=== PATIENT | male | born 1950 | race Caucasian/White ===

== ENCOUNTER 2016-12-06 22:25 | Inpatient (IN) ==
[2016-12-06] MEDS ORDERED: *HR* Labetalol 20 MG/4 ML SYRINGE IVP ONE (22:40)
--- NOTE | 2016-12-06 22:42 | Emergency Department Note ---
START Narrative - START START: I examined this patient and my medical decision-making was reviewed with the Resident Physician. I agree with the documented findings, disposition and treatment plan as described except to the extent set forth below. Patient to ED complaining of chest pain. Onset 1 day ago. He was transferred from the inpatient long-term care unit at the [facility]. History of an MT several months ago. The patient states his pain went away after nitroglycerin. Exam shows him laying in bed in no acute distress. Pain nonreproducible. Lungs clear. Plan. Cardiac workup and likely admission. Troponin negative. The patient is hypertensive which is likely continuing to his chest pain. He is chest pain-free at this time. We had her etiology review his EKG which appeared to be a left bundle branch block. They want him started on heparin and they will see him in consultation tomorrow. 40 minutes of critical care exclusive of separately billable procedures.
[2016-12-06 22:53] LABS: Basophils % 0.1 %; Hematocrit 41.3 % (37.5-50.1); Hemoglobin 14.6 g/dL (12.9-16.9); Immature Granulocytes % 0.4 % (0-4); Lymphocytes # 1.8 K/mcL (0.6-4.6); Mean Corpuscular HGB Conc 35.4 g/dL (31.6-35.5); Mean Corpuscular Hemoglobin 31.1 pg (28.0-33.3); Mean Corpuscular Volume 88.1 fL (83.0-100.0); Mean Platelet Volume 11.9 fL (9.4-12.4); Monocytes # 1.6 K/mcL (0.0-1.3); Monocytes % 10.6 %; Neutrophils # 11.8 K/mcL (1.6-8.9); Platelet Count 142 K/mcL (140-400); Red Blood Count 4.69 M/mcL (4.19-5.50); Red Cell Distribution Width 13.2 % (11.5-14.5); Segmented Neutrophils % 76.9 %
[2016-12-06] MEDS ORDERED: Ondansetron 4 MG/2 ML VIAL IVP ONE (22:53)
[2016-12-06 22:59] LABS: INR 1.2; Prothrombin Time 13.5 Seconds (9.4-12.1)
[2016-12-06 23:02] LABS: Activated Partial Thrombo Time 29.7 Seconds (26.0-36.0)
[2016-12-06 23:09] LABS: Alanine Aminotransferase 43 Units/L (0-55); Albumin/Globulin Ratio 1.1 (1.1-2.2); Alkaline Phosphatase 147 Units/L (38-126); Aspartate Amino Transferase 102 Units/L (5-34); BUN/Creatinine Ratio 17 (6-26); Bilirubin,Direct 0.9 mg/dL (0.0-0.5); Bilirubin,Indirect 1.3 mg/dL (0.0-1.2); Bilirubin,Total 2.2 mg/dL (0.2-1.2); Blood Urea Nitrogen 16 mg/dL (8-26); Calcium 9.5 mg/dL (8.6-10.8); Carbon Dioxide 23 mEq/L (19-29); Chloride 108 mEq/L (98-109); Globulin 3.8 g/dL (2.4-3.5); Glucose 166 mg/dL (70-99); Lipase 17 Units/L (8-78); Osmolality,Calculated 297 (280-300); Potassium 3.8 mEq/L (3.5-4.5); Sodium 141 mEq/L (136-145); Total Protein 7.8 g/dL (6.0-8.3); eGFR For African Americans > 60 (> 60); eGFR For Non-African Americans > 60 (> 60)
[2016-12-06] MEDS ORDERED: *HR* Heparin 5,000 UNIT/ML VIAL IVP PRN ×2 (23:27)
[2016-12-06] MEDS ORDERED: *HR* Heparin 5,000 UNIT/ML VIAL IVP ONE (23:27)
[2016-12-06] MEDS ORDERED: Heparin 25,000 UNIT/500 ML D5W 25,000 UNIT/500 ML MLS IVC SCH (23:30)
--- NOTE | 2016-12-06 23:33 | Emergency Department Note ---
Disposition Clinical Impression: Chest pain Qualifiers: Chest pain type: unspecified Qualified Code(s): R07.9 - Chest pain, unspecified Disposition: Admitted As Inpatient Condition: Fair [facility]errals: [facility] [Primary Care Provider[facility] - Forms: ED Satisfaction Letter Time of Disposition: 23:40 Chest Pain HPI - General Chief Complaint: ED Chest Pain Stated Complaint: chest pain Time Seen by Provider: 12/06/16 22:29 Source: patient Mode of arrival: EMS Limitations: no limitations Vital Signs Reviewed: Yes Nursing Notes Reviewed: Yes - History of Present Illness HPI Narrative: Patient is a 66-year-old male with a history of hypertension, cholesterol, diabetes, demand ischemia presents from the [facility] [place] with complaint of chest pain that has been going on since yesterday. He describes the chest pain is throbbing like in left-sided without radiation he does have some nausea and vomiting with it as well. Patient also has some diffuse abdominal pain at this time is going on for the past week. He also admits to some diarrhea. He has not seen any blood in the stool or his vomit. He states he does have a history of melena. The squad states they gave him 3 and 24 mg of aspirin and one dose of nitroglycerin. Patient states pain resolved after the nitroglycerin. Severity scale (1-10): 8 - Related Data Home Medications Medication Instructions Recorded Confirmed Aspirin 81 mg PO DAILY 01/06/16 01/06/16 Atorvastatin [Lipitor] 40 mg PO HS 01/06/16 01/06/16 Gabapentin [Neurontin] 600 mg PO TID 01/06/16 01/06/16 Insulin Glargine,Hum.rec.anlog 52 unit SQ 01/06/16 01/06/16 [Lantus Solostar] Lactulose 20 gm PO BID 01/06/16 01/06/16 Losartan [Cozaar] 50 mg PO DAILY 01/06/16 01/06/16 Metformin HCl [Glucophage] 1,000 mg PO BID 01/06/16 01/06/16 Morphine Sulfate 30 mg PO BID 01/06/16 01/06/16 Oxybutynin Chloride [Ditropan Xl] 5 mg PO DAILY 01/06/16 01/06/16 Pantoprazole Sodium [Protonix] 40 mg PO DAILY 01/06/16 01/06/16 Quetiapine Fumarate [Seroquel] 200 mg PO PRN PRN 01/06/16 01/06/16 Topiramate [Topamax] 100 mg PO DAILY 01/06/16 01/06/16 Venlafaxine HCl [Venlafaxine HCl 225 mg PO DAILY 01/06/16 01/06/16 ER] hydroCHLOROthiazide 12.5 mg PO DAILY 01/06/16 01/06/16 [Hydrochlorothiazide] Allergies Allergy/AdvReac Type Severity Reaction Status Date / Time sertraline [From Zoloft] Allergy Nausea Verified 01/06/16 17:11 All systems ED: reviewed and negative except as stated. Constitutional: Reports: chills. Denies: fever Cardiovascular: Reports: chest pain. Denies: palpitations, dyspnea on exertion Respiratory: Reports: dyspnea. Denies: cough, wheezes, hemoptysis Gastrointestinal: Reports: abdominal pain, nausea, vomiting, diarrhea. Denies: hematemesis, melena, hematochezia Genitourinary: Denies: dysuria Musculoskeletal: Denies: back pain, neck pain Integumentary: Denies: rash Chest Pain PMH - Past Medical History Medical history: Reports: arthritis, cancer, cirrhosis, COPD, diabetes, GERD, GI bleed, hepatitis, hyperlipidemia, hypertension, kidney stones, liver disease , osteoporosis, other Surgical history: Reports: other Psychiatric history: Reports: anxiety, bipolar, depression, PTSD, other - Social History Smoking Status: Heavy tobacco smoker Alcohol use: Reports: heavy Drug use: Reports: none Physical Exam Patient does not appear to be in acute distress. His blood pressures reading is 210/110. He is also tachycardic. - General Limitations: no limitations General appearance: alert, in no apparent distress - Head Head exam: atraumatic, normocephalic, normal inspection - Eye Eye exam: Present: normal appearance, PERRL, EOMI - ENT ENT exam: normal exam, normal oropharynx, mucous membranes dry - Neck Neck exam: Present: normal inspection, full ROM, trachea midline - Chest Chest inspection: Present: normal inspection, symmetric chest wall rise. Absent : tenderness - Respiratory Respiratory exam: Present: normal lung sounds bilaterally. Absent: respiratory distress, wheezes - Cardiovascular Cardiovascular exam: Present: regular rate, normal rhythm, normal heart sounds - Abdominal Exam Abdominal exam: Present: soft, Non-Tender, normal bowel sounds - Extremities Exam Extremities exam: Present: normal inspection, full ROM, normal capillary refill. Absent: tenderness, pedal edema, calf tenderness - Expanded Lower Extremity Exam Foot/toe exam: Present: normal inspection, full ROM. Absent: tenderness, swelling Neurovascular/Tendon exam: Present: normal capillary refill. Absent: pulse deficit - Back Exam Back exam: Present: normal inspection, full ROM. Absent: tenderness - Neurological Exam Neurological exam: Present: alert, oriented X3 - Psychiatric Psychiatric exam: Present: normal affect, normal mood - Skin Skin exam: Present: warm, dry, intact, normal color Course Course Narrative: Patient arrived to the ED with a chief complaint of chest pain that started yesterday. Chest pain relieved with 1 nitroglycerin by squad. The patient was also noted to have an elevated troponin of 0.14 and a CK of 4584 at the [facility]. Patient patient's EKG showed a left bundle branch block. I discussed this EKG with Dr. Rosales (cardiology) he also saw the EKG. He states start the patient on heparin and admitted to the hospital and he will see him for further evaluation. - Reevaluation(s) Reevaluation #1: Patient's blood pressure was elevated 210/110. We gave him a dose of labetalol here in the ER. His repeat pressure was 160/90. Respiratory repeat EKG patient stated he was having some 3 out of 10 chest pain. Time: 23:43 Reevaluation #2: I spoke with Dr. Rosales on this patient's case he reviewed the patient's EKG. He agrees his LBBB. Recommend starting the patient on heparin in the ED and admitting to the hospital for further evaluation by cardiology. Time: 23:44 Reevaluation #3: I spoke with Dr. Ordonez and he agrees to admit the patient. Time: 00:12 Vital Signs Temperature 97.9 F 12/06/16 22:31 Pulse Rate 101 12/06/16 22:31 Respiratory Rate 20 12/06/16 22:31 Blood Pressure 149/103 12/06/16 22:31 O2 Sat by Pulse Oximetry 98 12/06/16 22:31 Temperature 97.9 F 12/06/16 22:31 Pulse Rate 92 12/06/16 23:04 Respiratory Rate 20 12/06/16 23:04 Blood Pressure 146/93 12/06/16 23:21 O2 Sat by Pulse Oximetry 99 12/06/16 23:04 Oxygen Delivery Oxygen Delivery Nasal Cannula Chest Pain - Medical Records Medical records reviewed: Yes I reviewed the patient's medical records. - Lab Data Lab results reviewed: Yes I reviewed the patient's lab results. Result diagrams: 12/06/16 23:49 12/06/16 22:43 Lab Results 12/06/16 12/06/16 12/06/16 Range/Units 22:43 22:43 22:43 WBC 15.4 H (4.3-11.1) K/mcL RBC 4.69 (4.19-5.50) M/mcL Hgb 14.6 (12.9-16.9) g/dL Hct 41.3 (37.5-50.1) % MCV 88.1 (83.0-100.0) fL MCH 31.1 (28.0-33.3) pg MCHC 35.4 (31.6-35.5) g/dL RDW 13.2 (11.5-14.5) % Plt Count 142 (140-400) K/mcL MPV 11.9 (9.4-12.4) fL Immature Gran % 0.4 (0-4) % Seg Neutrophils % 76.9 % Lymphocytes % 12.0 % Monocytes % 10.6 % Eosinophils % 0.0 % Basophils % 0.1 % Neutrophils # 11.8 H (1.6-8.9) K/mcL Lymphocytes # 1.8 (0.6-4.6) K/mcL Monocytes # 1.6 H (0.0-1.3) K/mcL Eosinophils # 0.0 (0.0-0.6) K/mcL Basophils # 0.0 (0.0-0.2) K/mcL PT 13.5 H (9.4-12.1) Seconds INR 1.2 APTT 29.7 (26.0-36.0) Seconds Sodium (136-145) mEq/L Potassium (3.5-4.5) mEq/L Chloride (98-109) mEq/L Carbon Dioxide (19-29) mEq/L BUN (8-26) mg/dL Creatinine (0.72-1.25) mg/dL Est GFR ( Amer) (> 60) Est GFR (Non-Af Amer) (> 60) BUN/Creatinine Ratio (6-26) Glucose (70-99) mg/dL Calculated Osmolality (280-300) Calcium (8.6-10.8) mg/dL Total Bilirubin (0.2-1.2) mg/dL Direct Bilirubin (0.0-0.5) mg/dL Indirect Bilirubin (0.0-1.2) mg/dL AST (5-34) Units/L ALT (0-55) Units/L Alkaline Phosphatase (38-126) Units/L Troponin I 0.02 (0-0.03) ng/mL Serum Total Protein (6.0-8.3) g/dL Albumin (3.5-5.0) g/dL Globulin (2.4-3.5) g/dL Albumin/Globulin Ratio (1.1-2.2) Lipase (8-78) Units/L 12/06/16 12/06/16 12/06/16 Range/Units 22:43 23:49 23:49 WBC 14.4 H (4.3-11.1) K/mcL RBC 4.55 (4.19-5.50) M/mcL Hgb 14.1 (12.9-16.9) g/dL Hct 40.4 (37.5-50.1) % MCV 88.8 (83.0-100.0) fL MCH 31.0 (28.0-33.3) pg MCHC 34.9 (31.6-35.5) g/dL RDW 13.0 (11.5-14.5) % Plt Count 136 L (140-400) K/mcL MPV 11.6 (9.4-12.4) fL Immature Gran % (0-4) % Seg Neutrophils % % Lymphocytes % % Monocytes % % Eosinophils % % Basophils % % Neutrophils # (1.6-8.9) K/mcL Lymphocytes # (0.6-4.6) K/mcL Monocytes # (0.0-1.3) K/mcL Eosinophils # (0.0-0.6) K/mcL Basophils # (0.0-0.2) K/mcL PT 13.4 H (9.4-12.1) Seconds INR 1.2 APTT (26.0-36.0) Seconds Sodium 141 (136-145) mEq/L Potassium 3.8 (3.5-4.5) mEq/L Chloride 108 (98-109) mEq/L Carbon Dioxide 23 (19-29) mEq/L BUN 16 (8-26) mg/dL Creatinine 0.93 (0.72-1.25) mg/dL Est GFR ( Amer) > 60 (> 60) Est GFR (Non-Af Amer) > 60 (> 60) BUN/Creatinine Ratio 17 (6-26) Glucose 166 H (70-99) mg/dL Calculated Osmolality 297 (280-300) Calcium 9.5 (8.6-10.8) mg/dL Total Bilirubin 2.2 H (0.2-1.2) mg/dL Direct Bilirubin 0.9 H (0.0-0.5) mg/dL Indirect Bilirubin 1.3 H (0.0-1.2) mg/dL AST 102 H (5-34) Units/L ALT 43 (0-55) Units/L Alkaline Phosphatase 147 H (38-126) Units/L Troponin I (0-0.03) ng/mL Serum Total Protein 7.8 (6.0-8.3) g/dL Albumin 4.0 (3.5-5.0) g/dL Globulin 3.8 H (2.4-3.5) g/dL Albumin/Globulin Ratio 1.1 (1.1-2.2) Lipase 17 (8-78) Units/L - Radiology Data Radiology results reviewed: Yes I reviewed the patient's radiology results. Chest X-Ray 12/06/16 22:29 IMPRESSION: No significant change compared to prior radiograph. No acute cardiopulmonary findings. D/ / Doe Walker MD / Doe Walker MD Interpreting Provider: Doe Walker MD - EKG Data EKG attestation: Yes I reviewed and interpreted this EKG. EKG results narrative: His EKG was interpreted by me. Time 22:33. EKG is sinus tachycardia rate of 105 bpm with left bundle branch block. Left [place] Deviation. NE 201, QRS 130, QT /QTc 372/433. widened QRS is consistent with LBBB. This EKG was reviewed with DR. Rosales and he states it appears to be LBBB. Interpretation: other (Patient repeat EKG performed at 23:36. As a sinus rhythm at 81 bpm. Still showing left axis deviation. His left bundle branch block has improved. Otherwise unchanged from his prior EKG.)
[2016-12-06 23:54] LABS: Hematocrit 40.4 % (37.5-50.1); Hemoglobin 14.1 g/dL (12.9-16.9); Mean Corpuscular HGB Conc 34.9 g/dL (31.6-35.5); Mean Corpuscular Volume 88.8 fL (83.0-100.0); Mean Platelet Volume 11.6 fL (9.4-12.4); Platelet Count 136 K/mcL (140-400); Red Blood Count 4.55 M/mcL (4.19-5.50)
[2016-12-07 00:01] LABS: INR 1.2; Prothrombin Time 13.4 Seconds (9.4-12.1)
[2016-12-07] MEDS ORDERED: *HR* Promethazine 25 MG/ML VIAL IVP ONE (00:02)
[2016-12-07 00:03] LABS: Activated Partial Thrombo Time 29.6 Seconds (26.0-36.0)
--- NOTE | 2016-12-07 01:18 | Internal Med History&Physical ---
Date of Encounter: 12/07/16 Time of Encounter: 01:16 Assessment and Plan (1) Acute bronchitis Current visit: Yes Status: Acute Patient to the COPD or notices increased amount of greenish sputum. I will keep patient on azithromycin for acute bronchitis. Check sputum culture. for acute bronchitis. check sputum culture Qualifiers: Qualified Code(s): J20.9 - Acute bronchitis, unspecified (2) Diarrhea Current visit: Yes Status: Acute Has not noticed blood. Check stool for occult blood. CT abdomen shows some stranding along mesenteric vessels. Does not appear to have severe abdominal pain. Abdomen benign on exam. Check stool studies. 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 Trend troponin. Has not had cardiac evaluation before. 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 Oro is a 66 year old male with multiple medical problems including alcoholic induced liver cirrhosis, COPD not on home oxygen, diabetes mellitus presents to the emergency room today with the main complain of chest pain. Over the past 2 days patient has been having intermittent left pectoral chest pain not related to exertion. Pain would last for approximately 30 minutes. No associated symptoms. Patient also mentioned over the past 2 days he has been feeling sick. He describes that this feeling weak, easy fatigue ability, subjective fevers and chills. He has been having lower abdominal discomfort and intermittent loose stools. He has also been having a productive cough of greenish sputum with more sputum production than usual. He denies any blood in the diarrhea. Patient has not had a coronary angiogram before Past Med Surg Social Fam HX - Past Medical History Medical history: arthritis, cancer, cirrhosis, COPD, diabetes, GERD, GI bleed, hepatitis, hyperlipidemia, hypertension, kidney stones, liver disease, osteoporosis, other Psychiatric history: anxiety, bipolar, depression, PTSD, other - Past Surgical History Surgical History: other - Social History Smoking Status: Heavy tobacco smoker Smokeless Tobacco Status: No Alcohol use: heavy Drug use: none - Family History Mother Living Status: Internal Medicine - H&P: Meds Aspirin 81 mg PO DAILY 01/06/16 [History] Atorvastatin [Lipitor] 40 mg PO HS 01/06/16 [History] Gabapentin [Neurontin] 600 mg PO TID 01/06/16 [History] Insulin Glargine,Hum.rec.anlog [Lantus Solostar] 52 unit SQ HS 01/06/16 [History ] Lactulose 20 gm PO BID 01/06/16 [History] Losartan [Cozaar] 50 mg PO DAILY 01/06/16 [History] Metformin HCl [Glucophage] 1,000 mg PO BID 01/06/16 [History] Morphine Sulfate 30 mg PO BID 01/06/16 [History] Oxybutynin Chloride [Ditropan Xl] 5 mg PO DAILY 01/06/16 [History] Pantoprazole Sodium [Protonix] 40 mg PO DAILY 01/06/16 [History] Quetiapine Fumarate [Seroquel] 200 mg PO PRN PRN 01/06/16 [History] Topiramate [Topamax] 100 mg PO DAILY 01/06/16 [History] Venlafaxine HCl [Venlafaxine HCl ER] 225 mg PO DAILY 01/06/16 [History] hydroCHLOROthiazide [Hydrochlorothiazide] 12.5 mg PO DAILY 01/06/16 [History] Allergies sertraline [From Zoloft] Allergy (Verified 01/06/16 17:11) Nausea All Systems PM: A 10-system review of systems was performed and is negative for pertinent findings except as documented above in the HPI. Review of systems: 10 point review of systems is negative except for HPI - Constitutional Vitals: Temp Pulse Resp BP Pulse Ox 97.9 F 81 16 156/87 96 12/06/16 22:31 12/07/16 00:34 12/07/16 00:34 12/07/16 00:34 12/07/16 00:34 Exam: Gen.: patient is alert oriented times 3 not in distress. Cardiac: normal S1 S2 no additional sounds or murmurs chest: fair air entry. no active wheezing. No crackles or bronchial breathing. abdomen: soft nontender nondistended normal bowel sounds neuro: no focal deficit Internal Med - H&P Results - Labs CBC & Chem 7: 12/06/16 23:49 12/06/16 22:43
[2016-12-07 02:12] LABS: BUN/Creatinine Ratio 19 (6-26); Blood Urea Nitrogen 18 mg/dL (8-26); Calcium 9.1 mg/dL (8.6-10.8); Carbon Dioxide 23 mEq/L (19-29); Chloride 108 mEq/L (98-109); Creatine Kinase 3695 Units/L (30-200); Glucose 162 mg/dL (70-99); Osmolality,Calculated 297 (280-300); Potassium 3.3 mEq/L (3.5-4.5); Sodium 141 mEq/L (136-145); eGFR For African Americans > 60 (> 60); eGFR For Non-African Americans > 60 (> 60)
[2016-12-07 02:18] LABS: Basophils % 0.1 %; Hematocrit 39.2 % (37.5-50.1); Hemoglobin 13.9 g/dL (12.9-16.9); Immature Granulocytes % 0.3 % (0-4); Lymphocytes # 2.2 K/mcL (0.6-4.6); Mean Corpuscular HGB Conc 35.5 g/dL (31.6-35.5); Mean Corpuscular Hemoglobin 31.2 pg (28.0-33.3); Mean Corpuscular Volume 88.1 fL (83.0-100.0); Mean Platelet Volume 12.4 fL (9.4-12.4); Monocytes # 1.5 K/mcL (0.0-1.3); Monocytes % 10.7 %; Neutrophils # 10.1 K/mcL (1.6-8.9); Platelet Count 130 K/mcL (140-400); Red Blood Count 4.45 M/mcL (4.19-5.50); Red Cell Distribution Width 13.2 % (11.5-14.5); Segmented Neutrophils % 72.9 %
[2016-12-07] MEDS: Azithromycin 250 MG TABLET PO SCH (03:31)
[2016-12-07] MEDS ORDERED: *HR* OxyCODONE Immed Rel 5 MG TABLET PO STA (04:21)
[2016-12-07 04:46] LABS: Hemoglobin A1C 6.3 %
[2016-12-07] MEDS: 0.9 % Sodium Chloride 1,000 ML IVC SCH ×2 (04:59→17:22)
[2016-12-07 07:09] LABS: Activated Partial Thrombo Time 131.9 Seconds (26.0-36.0)
[2016-12-07 07:22] LABS: Heparin anti-factor XA UFH 0.59 IU/mL (0.30-0.70)
[2016-12-07] MEDS ORDERED: Regadenoson 0.4 MG/5 ML SYRINGE IVP ONE (09:10)
[2016-12-07] MEDS: Insulin LISPRO 300 UNITS/3 ML VIAL SQ SCH ×4 (09:15→20:50)
--- NOTE | 2016-12-07 09:33 | Cardiology Consult Note ---
Date of Encounter: 12/07/16 Time of Encounter: 09:30 Assessment and Plan (1) Chest pain Current Visit: Yes Status: Acute Pt reports onset of chest pain at rest yesterday, left sided associated with dyspnea, diaphoresis, nausea and vomiting. Reports it was worse with exertion, improved with nitro, lasted hours and has now resolved without recurrence. Initial troponin at [facility] 0.14, negative x 2 here. Question accuracy of initial troponin. Currently chest pain free. BP also as high as 211/126 after presentation. No EKG changes. Discussed with Dr. Hayder Rosales. Given pt's multiple cormorbidities, hx of noncompliance and 2 recent negative troponins, recommend stress test to further evaluate. Stop heparin gtt. Check echo as well. Echo 01/2016 EF preserved. Further recommendations pending stress and echo results. Pt has no prior diagnosis of CAD. Denies stress or LHC in the past. Risk factors include DM, HTN , HLD, tobacco abuse. Qualifiers: Chest pain type: unspecified Qualified Code(s): R07.9 - Chest pain, unspecified (2) Elevated troponin Current Visit: Yes Status: Acute Documented per [facility] as initial troponin 0.14. Troponin negative x 2 here, so question accuracy of initial troponin. Currently chest pain free. Echo and stress test as above. Discussion w patient/family: The assessment and plan as outlined above was discussed with the patient and/or family members who expressed understanding and agreement. All questions were answered. Thank you for involving us in the care of your patient. Please call with any questions. I will discuss all the above with Dr. Hayder Rosales and make changes as necessary. History of Present Illness Consult date: 12/07/16 Requesting physician: Magdi Pete Consult reason: Chest pain, elevated troponin Chief complaint: chest pain History of present illness: Mr. Oro is a 66 year old male with PMH of Type 2 DM, HTN, HLD, OA, PTSD, depression-anxiety disorder, alcohol dependency-abuse (episodic), hepatitis C, anemia of chronic disease, GI bleed, liver disease, esophageal-gastric varices, history of hepatic encephalopathy, obesity, nicotine dependency. The patient was a transfer from [facility]. He resides there, was laying in bed yesterday and developed left sided chest pain without radiation. It was associated with nausea , vomiting, diaphoresis, dyspnea. Pt reports the pain worsened with exertion, improved with nitro, lasted hours before subsiding. Currently chest pain free. Troponin at [facility] was 0.14 and he was transferred to [facility]. Troponin here has been negative x 2. Pt chest pain free. BP was as high as 211/126 after presentation. Prior CV testing: Echo 01/06/16: EF 55-60%, normal diastolic function, mildly dilated left atrium, no significant valvular dysfunction. Past Med Surg Social Fam HX - Past Medical History Medical history: arthritis, cancer, cirrhosis, COPD, diabetes, GERD, GI bleed, hepatitis, hyperlipidemia, hypertension, kidney stones, liver disease, osteoporosis, other Psychiatric history: anxiety, bipolar, depression, PTSD, other - Past Surgical History Surgical History: other - Social History Smoking Status: Heavy tobacco smoker Packs per day: 1 Smokeless Tobacco Status: No Alcohol use: none Drug use: none - Family History Mother Living Status: Cause of : Brain aneurysm Medications and Allergies Aspirin 81 mg PO DAILY 01/06/16 [History] Atorvastatin [Lipitor] 40 mg PO HS 01/06/16 [History] Gabapentin [Neurontin] 600 mg PO TID 01/06/16 [History] Lactulose 20 gm PO BID 01/06/16 [History] Losartan [Cozaar] 50 mg PO DAILY 01/06/16 [History] Metformin HCl [Glucophage] 1,000 mg PO BID 01/06/16 [History] Morphine Sulfate 30 mg PO BID 01/06/16 [History] Oxybutynin Chloride [Ditropan Xl] 5 mg PO DAILY 01/06/16 [History] Pantoprazole Sodium [Protonix] 40 mg PO DAILY 01/06/16 [History] Topiramate [Topamax] 100 mg PO DAILY 01/06/16 [History] Venlafaxine HCl [Venlafaxine HCl ER] 225 mg PO DAILY 01/06/16 [History] hydroCHLOROthiazide [Hydrochlorothiazide] 12.5 mg PO DAILY 01/06/16 [History] Allergies sertraline [From Zoloft] Allergy (Verified 01/06/16 17:11) Nausea All Systems Review: A 10-system review of systems was performed and is negative for pertinent findings except as documented above in the HPI. - Cardiovascular Cardiovascular: as per HPI, chest pain at rest, chest pain with exertion, diaphoresis, dyspnea at rest, dyspnea on exertion - Respiratory Respiratory: dyspnea - Gastrointestinal Gastrointestinal: nausea Physical Examination Vital Signs, Last 4 Hours Temp Pulse Resp BP Pulse Ox 12/07/16 07:13 98.1 F 87 18 85/50 96 Vital Signs Temp Pulse Resp BP Pulse Ox 12/07/16 07:13 98.1 F 87 18 85/50 96 12/07/16 02:47 97.8 F 78 16 91/54 98 12/07/16 01:15 16 156/87 12/07/16 00:34 81 16 156/87 96 12/06/16 23:21 146/93 12/06/16 23:04 92 20 153/89 99 12/06/16 22:39 110 20 211/126 98 12/06/16 22:37 98 12/06/16 22:31 97.9 F 101 20 149/103 98 Intake and Output 12/06/16 12/07/16 12/07/16 23:59 07:59 15:59 Intake Total 155 / 155 0 / 0 Balance 155 / 155 0 / 0 Intake: IV Fluids 155 / 155 0 / 0 Heparin 25,000 UNIT/500 155 / 155 0 / 0 ML D5W 25,000 unit In 500 ml @ 12 UNIT/KG/HR 23.95 mls/hr IVC .[id number] [facility] Rx#:[id number] Other: Weight 99.79 kg 97.296 kg Blood Glucose* 126 Patient Weight 12/07/16 23:59 Weight 97.296 kg General: Conversant, No Apparent Distress HEENT: Atraumatic, Normocephaly, Mucus Membranes Moist Neck: No JVD, Normal carotid pulses Cardiac: Reg Rate and Rhythm, Normal S1 and S2, No Murmur Lungs: Normal Breath Sounds, No Wheeze, Rales, Rhonchi Neuro: Alert and responsive, No focal deficits noted Abdomen: Soft, Non-Tender Skin: No rashes noted on visualized skin Musculoskeletal: No Chest Wall Tenderness Extremities: No Clubbing, No Cyanosis, No Edema, Normal Pulses Results 12/07/16 01:43 12/07/16 01:43 Lab Results 12/07/16 12/07/16 12/07/16 01:43 01:43 01:43 WBC 13.9 H Hgb 13.9 Hct 39.2 Plt Count 130 L APTT Sodium 141 Potassium 3.3 L Chloride 108 Carbon Dioxide 23 BUN 18 Creatinine 0.93 Glucose 162 H Calcium 9.1 Magnesium 2.0 Troponin I 0.02 12/07/16 06:33 WBC Hgb Hct Plt Count APTT 131.9 H* D Sodium Potassium Chloride Carbon Dioxide BUN Creatinine Glucose Calcium Magnesium Troponin I Short CBC 12/07/16 12/06/16 12/06/16 Range/Units 01:43 23:49 22:43 WBC 13.9 H 14.4 H 15.4 H (4.3-11.1) K/mcL Hgb 13.9 14.1 14.6 (12.9-16.9) g/dL Hct 39.2 40.4 41.3 (37.5-50.1) % Plt Count 130 L 136 L 142 (140-400) K/mcL Neutrophils # 10.1 H 11.8 H (1.6-8.9) K/mcL BMP 12/07/16 12/06/16 Range/Units 01:43 22:43 Sodium 141 141 (136-145) mEq/L Potassium 3.3 L 3.8 (3.5-4.5) mEq/L Chloride 108 108 (98-109) mEq/L Carbon Dioxide 23 23 (19-29) mEq/L BUN 18 16 (8-26) mg/dL Creatinine 0.93 0.93 (0.72-1.25) mg/dL Glucose 162 H 166 H (70-99) mg/dL Calcium 9.1 9.5 (8.6-10.8) mg/dL Cardiac Enzymes 12/07/16 12/06/16 Range/Units 01:43 22:43 Troponin I 0.02 0.02 (0-0.03) ng/mL Liver Function 12/06/16 Range/Units 22:43 Total Bilirubin 2.2 H (0.2-1.2) mg/dL Direct Bilirubin 0.9 H (0.0-0.5) mg/dL AST 102 H (5-34) Units/L ALT 43 (0-55) Units/L Alkaline Phosphatase 147 H (38-126) Units/L Albumin 4.0 (3.5-5.0) g/dL Impressions Chest X-Ray 12/06/16 22:29 IMPRESSION: No significant change compared to prior radiograph. No acute cardiopulmonary findings. D/ / Doe Walker MD / Doe Walker MD Interpreting Provider: Doe Walker MD Abdomen/Pelvis CT 12/06/16 22:32 IMPRESSION: There is fat stranding surrounding proximal inferior mesenteric artery which is nonspecific though may indicate vasculitis. No other acute process identified. Cirrhosis and bilateral intrarenal calculi are also noted. D/ / Hunter Mendosa MD / Hunter Mendosa MD Interpreting Provider: Hunter Mendosa MD Active Medications Aspirin (Aspirin) 81 mg PO DAILY YANNA Stop: 06/08/17 09:01 Atorvastatin Calcium (Lipitor) 40 mg PO HS YANNA Stop: 06/08/17 21:01 Azithromycin (Zithromax) 500 mg PO Q24H YANNA Stop: 06/08/17 01:16 Last Admin: 12/07/16 03:31 Dose: 500 mg Gabapentin (Neurontin) 300 mg PO TID YANNA Stop: 06/08/17 09:01 Heparin Sodium (Porcine) (Heparin) 5,000 unit SQ Q12HCO YANNA Stop: 06/08/17 18:01 Sodium Chloride (0.9 % Sodium Chloride) 1,000 mls @ 100 mls/hr IVC .Q10H [facility] Stop: 06/08/17 01:16 Last Admin: 12/07/16 04:59 Dose: 100 mls/hr Insulin Human Lispro (Humalog) 0 units SQ QIDAC [facility] PRN Reason: Protocol Stop: 06/08/17 07:31 Last Admin: 12/07/16 09:15 Dose: Not Given Lactulose (Lactulose) 20 gm PO BID YANNA Stop: 06/08/17 09:01 Morphine Sulfate (Morphine Sulfate) 30 mg PO BID YANNA Stop: 06/08/17 09:01 Pantoprazole Sodium (Protonix) 40 mg IVP DAILY YANNA Stop: 06/08/17 09:01 Topiramate (Topamax) 100 mg PO DAILY YANNA Stop: 06/08/17 09:01 Venlafaxine HCl (Effexor Xr) 225 mg PO DAILY YANNA Stop: 06/08/17 09:01 - Imaging and Cardiology Echo: report reviewed - EKG Interpretation EKG results cardiology: personally reviewed (SR, LVH), other (12 hr tele AVG HR 78, SR, no significant pauses or arrhythmias.) Consult Discharge Plan - Plan [facility]errals: [facility] [Primary Care Provider] -
[2016-12-07] MEDS: Topiramate 100 MG TABLET PO SCH (12:12)
[2016-12-07] MEDS: Venlafaxine XR (24 HR) 75 MG CAP.ER.24H PO SCH (12:12)
[2016-12-07] MEDS: *HR* Morphine Immed Rel 30 MG TABLET PO SCH ×2 (12:12→21:16)
[2016-12-07] MEDS: Aspirin 81 MG TAB.CHEW PO SCH (12:12)
[2016-12-07] MEDS: Gabapentin 300 MG CAPSULE PO SCH ×3 (12:12→21:16)
[2016-12-07] MEDS: Lactulose Oral Soln 20 GM/30 ML UDC PO SCH ×2 (12:13→21:16)
[2016-12-07] MEDS: Pantoprazole 40 MG VIAL IVP SCH (12:14)
[2016-12-07 15:50] LABS: Bilirubin,Urine Small (Negative); Blood,Urine Moderate (Negative); Clarity,Urine Clear (Clear); Color,Urine Dark Yellow (Yellow); Glucose,Urine (UA) Normal (Normal); Ketones,Urine Trace mg/dL (Negative); Leukocyte Esterase,Urine Trace (Negative); Nitrite,Urine Negative (Negative); Protein,Urine 30 mg/dL (Neg-Trace); Specific Gravity,Urine > 1.030 (1.010-1.025); Urobilinogen,Urine Normal (Normal)
[2016-12-07 15:52] LABS: Bacteria,Urine None Seen per hpf (None-Few); RBC,Urine 15-30 per hpf (0-3); Squamous Epithelial Cell,Urine Many per lpf (None-Few)
--- NOTE | 2016-12-07 16:45 | Event Note ---
Date of Encounter: 12/07/16 Time of Encounter: 16:43 Patient is new to me, seen and examined at bedside. Information obtained from chart review and patient report. Patient says he feel better today. Just returned from stress test and echo. Still with intermittent productive cough. No CP or SOB. Seen by Cardiology who stopped hep gtt and ordered stress test and echo. Cont current plan/treatment for now. Further recommendations pending testing results.
[2016-12-07] MEDS: *HR* Heparin 5,000 UNIT/ML VIAL SQ SCH (17:21)
[2016-12-08] MEDS: Azithromycin 250 MG TABLET PO SCH (00:32)
[2016-12-08] MEDS: 0.9 % Sodium Chloride 1,000 ML IVC SCH ×3 (00:34→21:10)
[2016-12-08] MEDS: *HR* Heparin 5,000 UNIT/ML VIAL SQ SCH ×2 (05:43→17:18)
--- NOTE | 2016-12-08 07:56 | Event Note ---
Date of Encounter: 12/08/16 Time of Encounter: 07:55 - Cardiology Event Note Stress test negative for ischemia or infarct. Gated EF 61%. Echo shows preserved EF 55-60%, mild concentric LVH, no significant valvular dysfunction. Cardiology signing off. Reconsult PRN.
[2016-12-08] MEDS: Insulin LISPRO 300 UNITS/3 ML VIAL SQ SCH ×4 (08:38→21:05)
[2016-12-08] MEDS: Aspirin 81 MG TAB.CHEW PO SCH (08:58)
[2016-12-08] MEDS: Topiramate 100 MG TABLET PO SCH (08:58)
[2016-12-08] MEDS: Lactulose Oral Soln 20 GM/30 ML UDC PO SCH ×2 (08:59→21:08)
[2016-12-08] MEDS: Gabapentin 300 MG CAPSULE PO SCH ×3 (08:59→21:09)
[2016-12-08] MEDS: Venlafaxine XR (24 HR) 75 MG CAP.ER.24H PO SCH (08:59)
[2016-12-08] MEDS: Pantoprazole 40 MG VIAL IVP SCH (08:59)
[2016-12-08] MEDS ORDERED: Albuterol 2.5 MG/3 ML NEBULIZER IH PRN (09:32)
[2016-12-08 09:36] LABS: BUN/Creatinine Ratio 22 (6-26); Blood Urea Nitrogen 24 mg/dL (8-26); Calcium 8.6 mg/dL (8.6-10.8); Carbon Dioxide 22 mEq/L (19-29); Chloride 109 mEq/L (98-109); Glucose 117 mg/dL (70-99); Osmolality,Calculated 291 (280-300); Sodium 138 mEq/L (136-145); eGFR For African Americans > 60 (> 60); eGFR For Non-African Americans > 60 (> 60)
[2016-12-08 09:49] LABS: Hematocrit 39.4 % (37.5-50.1); Hemoglobin 13.3 g/dL (12.9-16.9); Mean Corpuscular HGB Conc 33.8 g/dL (31.6-35.5); Mean Corpuscular Hemoglobin 31.3 pg (28.0-33.3); Mean Corpuscular Volume 92.7 fL (83.0-100.0); Mean Platelet Volume 12.3 fL (9.4-12.4); Platelet Count 106 K/mcL (140-400); Red Blood Count 4.25 M/mcL (4.19-5.50); Red Cell Distribution Width 13.6 % (11.5-14.5)
[2016-12-08] MEDS: *HR* Morphine Immed Rel 30 MG TABLET PO SCH ×2 (10:08→21:09)
--- NOTE | 2016-12-08 10:24 | Internal Med Progress Note ---
Date of Encounter: 12/08/16 Time of Encounter: 10:21 - Assessment and plan (1) Acute bronchitis Current Visit: Yes Status: Acute Assessment and plan: Patient is a smoker and has COPD. Albuterol nebulizer Q2hr PRN duonebs QID azithromycin daily. mucinex BID. Qualifiers: Bronchitis organism: unspecified organism Qualified Code(s): J20.9 - Acute bronchitis, unspecified (2) DM (diabetes mellitus), type 2 Current Visit: Yes Status: Chronic Assessment and plan: Controlled as evidenced by A1c of 6.3. Holding metformin. Diabetic diet. Check blood sugars ACHS sliding scale correction dose ACHS hypoglycemic protocol. Qualifiers: Diabetes mellitus complication status: without complication Diabetes mellitus long-term insulin use: without intermediate project manager use Qualified Code(s): E11.9 - Type 2 diabetes mellitus without complications (3) Chest pain Current Visit: Yes Status: Resolved Assessment and plan: Patient denies any current chest pain or shortness of breath. Troponins have been negative. ECHO showed Normal LV systolic function. LVEF 55-60%. Stress perfusion imaging was negative for ischemia or infarct. Cardiology has signed off. (4) Diarrhea Current Visit: Yes Status: Resolved Assessment and plan: Patient reports he had diarrhea and vomiting on Friday, but is now resolved. Qualifiers: Diarrhea type: unspecified type Qualified Code(s): R19.7 - Diarrhea, unspecified (5) Hypokalemia Current Visit: Yes Status: Resolved Assessment and plan: Potassium was 3.3 on presentation. Likely secondary to patient's reported diarrhea and vomiting earlier in the week. After supplementation, now up to 4.0. (6) Cirrhosis Current Visit: No Status: Acute Assessment and plan: Patient with known cirrhosis secondary to hep C and alcohol. Continue lactulose and titrate to 2-3 soft stools daily. Qualifiers: Hepatic cirrhosis type: alcoholic cirrhosis Qualified Code(s): K70.30 - Alcoholic cirrhosis of liver without ascites (7) DVT prophylaxis Current Visit: Yes Status: Acute Assessment and plan: SCDs. - Subjective Interval history: Patient denies any chest pain, shortness of breath, or palpitations. He is reporting cough and trouble with mobilizing secretions. We will add duonebs and mucinex in addition to his azithromycin for his COPD exacerbation. WBC improved to normal. Labs and vital signs are stable. Cardiology has signed off and chest pain has resolved. - Constitutional Vitals: Temp Pulse Resp BP Pulse Ox 97.4 F L 63 18 94/57 95 12/08/16 07:14 12/08/16 07:14 12/08/16 07:14 12/08/16 08:54 12/08/16 07:14 General appearance: Present: A&O X 3, pleasant, no acute distress - Head Head exam: Present: atraumatic, normocephalic - Eye Eye exam: Present: PERRL, conjuntiva pink, sclera anicteric Pupils: Present: PERRL - Neck Neck exam general surgery: Present: supple, trachea midline. Absent: lymphadenopathy - Respiratory Respiratory exam: Present: CTAB. Absent: accessory muscle use, rales, rhonchi, wheezes - Cardiovascular Cardiovascular exam: Present: RRR, +S1, +S2. Absent: diastolic murmur, gallop, rubs, systolic murmur - GI/Abdominal GI/Abdominal exam: Present: normal bowel sounds, soft, no peritoneal signs. Absent: distended, tenderness - Extremities Exam Extremities exam: Present: warm, radial pulses palpable and symetrical. Absent : calf tenderness, cyanotic, pedal edema - Neurological Exam Neurological exam: Present: CN II-XII intact, oriented X3, no focal deficits. Absent: facial droop, speech deficit - Skin Skin exam: Present: dry, intact Internal Medicine: Result - Labs CBC & Chem 7: 12/08/16 08:55 12/08/16 08:55 Labs: Short CBC 12/08/16 Range/Units 08:55 WBC 8.9 (4.3-11.1) K/mcL Hgb 13.3 (12.9-16.9) g/dL Hct 39.4 (37.5-50.1) % Plt Count 106 L (140-400) K/mcL BMP 12/08/16 08:55 Sodium 138 Potassium 4.0 Chloride 109 Carbon Dioxide 22 BUN 24 Creatinine 1.11 Glucose 117 H Calcium 8.6 Urine 12/07/16 Range/Units 15:38 Urine Color Dark Yellow (Yellow) Urine Clarity Clear (Clear) Urine pH 6.0 (5.0-8.0) pH Units Ur Specific [place] > 1.030 H (1.010-1.025) Urine Protein 30 H (Neg-Trace) mg/dL Urine Glucose (UA) Normal (Normal) mg/dL - ABG Interpretation ABG results: PT/INR, D-dimer PT 13.4 Seconds (9.4-12.1) H 12/06/16 23:49 Consult Discharge Plan - Plan [facility]errals: [facility] [Primary Care Provider] -
[2016-12-08] MEDS: Ipratropium/Albuterol Neb 3 ML IH SCH ×3 (11:04→22:37)
[2016-12-09] MEDS: Azithromycin 250 MG TABLET PO SCH (01:01)
[2016-12-09] MEDS: Ipratropium/Albuterol Neb 3 ML IH SCH ×2 (04:07→10:42)
[2016-12-09] MEDS: *HR* Heparin 5,000 UNIT/ML VIAL SQ SCH (05:37)
[2016-12-09] MEDS: 0.9 % Sodium Chloride 1,000 ML IVC SCH (05:42)
[2016-12-09 08:03] VITALS: BP 144/78
[2016-12-09] MEDS: Topiramate 100 MG TABLET PO SCH (08:27)
[2016-12-09] MEDS: *HR* Morphine Immed Rel 30 MG TABLET PO SCH (08:27)
[2016-12-09] MEDS: Lactulose Oral Soln 20 GM/30 ML UDC PO SCH (08:27)
[2016-12-09] MEDS: Aspirin 81 MG TAB.CHEW PO SCH (08:28)
[2016-12-09] MEDS: Venlafaxine XR (24 HR) 75 MG CAP.ER.24H PO SCH (08:28)
[2016-12-09] MEDS: Gabapentin 300 MG CAPSULE PO SCH (08:28)
[2016-12-09] MEDS: Pantoprazole 40 MG VIAL IVP SCH (08:28)
[2016-12-09] MEDS: Insulin LISPRO 300 UNITS/3 ML VIAL SQ SCH (08:40)
--- NOTE | 2016-12-09 10:22 | Discharge Summary ---
Date of Encounter: 12/09/16 Time of Encounter: 10:00 - Discharge Diagnosis (1) Chest pain Priority: Primary Status: Resolved Comments: Pt denies chest pain. Chest xray and CTA were both negative for PE and acute processes. Troponins negative at this facility. EkG baseline and without ST changes. Echo with preserved function and stress test negative for acute infarct or ischemia. Qualifiers: Chest pain type: unspecified Qualified Code(s): R07.9 - Chest pain, unspecified (2) Acute bronchitis Priority: Secondary Status: Acute Comments: Pt will continue Zithromax on discharge as well as continue his normal home medications. He has been afebrile and has no leukocytosis. Adonischi heard in post lung isaac, mostly clear with cough. Pt denies home 02. He is not requiring home 02 at this time and sats are mid to high 90s today. Qualifiers: Bronchitis organism: unspecified organism Qualified Code(s): J20.9 - Acute bronchitis, unspecified (3) Diarrhea Priority: Secondary Status: Resolved Comments: Denies. No abd pain or cramping. Abd soft, non-tender, bs present. Pt is able to eat and drink without pain, cramping, or complications. No WBC, fever, melena , or hematochezia per pt. Qualifiers: Diarrhea type: unspecified type Qualified Code(s): R19.7 - Diarrhea, unspecified (4) DVT prophylaxis Priority: Secondary Status: Acute Comments: Heparin SQ (5) Hypokalemia Priority: Secondary Status: Resolved Comments: Resolved. K+ WNL. - Discharge Medications Prescriptions: Azithromycin [Zithromax Tri-Stan] 500 mg PO DAILY #4 tablet GuaiFENesin ER [Mucinex] 600 mg PO BID #20 tab Home Medications: Aspirin 81 mg PO DAILY 01/06/16 [History] Atorvastatin [Lipitor] 40 mg PO HS 01/06/16 [History] Gabapentin [Neurontin] 600 mg PO TID 01/06/16 [History] Metformin HCl [Glucophage] 1,000 mg PO BID 01/06/16 [History] Morphine Sulfate 30 mg PO BID 01/06/16 [History] Pantoprazole Sodium [Protonix] 40 mg PO DAILY 01/06/16 [History] ARIPiprazole [Abilify] 10 mg PO HS 12/09/16 [History] Ammonium Lactate [Lac-Hydrin Five] 1 appl TP DAILY 12/09/16 [History] Azithromycin [Zithromax Tri-Stan] 500 mg PO DAILY #4 tablet 12/09/16 [Rx] Carboxymethylcellulose Sodium [Thera Tears] 1 drop OP TID 12/09/16 [History] Cholecalciferol (D-3) [Vitamin D] 3,000 unit PO DAILY 12/09/16 [History] Docusate Sodium [Dok] 100 mg PO BID PRN 12/09/16 [History] Folic Acid 1 mg PO DAILY 12/09/16 [History] GuaiFENesin ER [Mucinex] 600 mg PO BID #20 tab 12/09/16 [Rx] Insulin Glargine [Lantus] 45 unit SQ DAILY 12/09/16 [History] Lactulose 30 gm PO TID 12/09/16 [History] Lidocaine [Aspercreme] 1 patch TP DAILY 12/09/16 [History] Lipase/Protease/Amylase [Creon Dr 12,000 Units Capsule] 1 cap PO DAILY 12/09/16 [History] Losartan Potassium [Cozaar] 100 mg PO DAILY 12/09/16 [History] Melatonin [Melatin] 12 mg PO HS PRN 12/09/16 [History] Multivit-Min/FA/Lycopen/Lutein [A Thru [employer] Select Multivit Tab] 1 tab PO DAILY 11/18 [History] Oxycodone HCl [Oxaydo] 7.5 mg PO BID PRN 12/09/16 [History] Rifaximin [Xifaxan] 550 mg PO BID 12/09/16 [History] Sennosides [Senokot] 17.2 mg PO DAILY 12/09/16 [History] Sildenafil Citrate [Viagra] 50 mg PO AD PRN 12/09/16 [History] Thiamine (B-1) [Vitamin B-1] 100 mg PO DAILY 12/09/16 [History] Topiramate [Topamax] 75 mg PO HS 12/09/16 [History] Topiramate [Topamax] 100 mg PO DAILY tab 12/09/16 [Rx] Triamcinolone Acet 0.1% CRM [Kenalog] 1 appl TP BID PRN 12/09/16 [History] Venlafaxine XR (24 HR) [Effexor XR] 75 mg PO DAILY 12/09/16 [History] Venlafaxine XR (24 HR) [Effexor XR] 225 mg PO DAILY 12/09/16 [Rx] traZODone [TraZODone] 50 mg PO HS 12/09/16 [History] Allergies/Adverse Reactions: Allergies sertraline [From Zoloft] Allergy (Verified 01/06/16 17:11) Nausea Date of admission: 12/07/16 14:42 [facility] Consults: 12/09/16 07:08 Consult to Mathematics Improvement Teacher [CONS] Routine Reason for SW Consult: DC planning back to [facility] [place]. Discharging clinician: Trudi Arango Anticipated date of discharge: 12/09/16 - Patient Status Disposition: Transfer [facility] Condition: Good Functional capacity at discharge: independent ambulation Overall status at discharge: patient is progressing back to baseline - Discharge Instructions Follow Up With: [facility] [Primary Care Provider] - - Diet and Activity Activity: increase activity as tolerated Diet: advance to your usual diet Hospital course: Mr. Oro is a 66 year old male with PMH of cirrhosis, DM, arthritis, cancer, COPD, GERD, GIB, hepatitis, HLD, HTN, anxiety, depression, and PTSD. He presented to the ED with c/o L chest pain with exertion. Pain was lasting approximately 30 min with no other associated symptoms. He also c/o 2 day history of weakness, fatigue, subjective fevers, chills, and diarrhea. Pt also reports productive cough with green sputum, over his normal sputum production. Chest xray neagtive for acute cardiopulmonary findings. CT abd/pelvis showed there is fat stranding surrounding proximal inferior mesenteric artery which is nonspecific though may indicate vasculitis. No other acute process identified. Cirrhosis and bilateral intrarenal calculi are also noted. EKG NSR with borderline 1st degree AVB rate 81, AL 205, QRS 126, QTc 419. Stress test negative for ischemia or infarct. Gated EF 61%. Echo showed normal LV systolic function, LVEF 55-60%. Mild concentric LV hypertrophy. No significant valvular dysfunction. Troponins at this facility were negative. Pt was evaluated by cardiologyand they have signed off, no further testing is needed. He currently denies chest pain. He was admitted with actue bronchitis and has been treated with Zithromax, Mucinex, Duonebs, and albuterol nebs and he states that he feels better. Lungs still have some ronchi that partially clear with cough. I will continue Zithromax on discharge and pt states that he lives at the [facility] and does not need refills on any medications. Blood cultures were negative x 2. Leukocytosis that was present on admission has resolved. Pt was hypokalemic on arrival, as well. It has resovled with supplementation. Pt will continue his normal home medications for diabetes and htn. Vitals have remained stable. [facility] is ready to accept pt back at facility. Pt is stable and ready for discharge. - Time Spent with Patient Total time spent providing and/or coordinating discharge services: Less than 30 minutes - Constitutional Vitals: Temp Pulse Resp BP Pulse Ox 98.1 F 74 16 144/78 97 12/09/16 07:57 12/09/16 07:57 12/09/16 07:57 12/09/16 07:57 12/09/16 07:57 General appearance: Present: cooperative, A&O X 3, pleasant, no acute distress, answers questions appropriately - Head Head exam: Present: normal inspection - Eye Eye exam: Present: EOMI, normal appearance, conjuntiva pink. Absent: nystagmus - ENT ENT exam: Present: mucous membranes moist, normal exam, normal external ear exam - Neck Neck exam general surgery: Present: normal inspection. Absent: lymphadenopathy , tenderness - Respiratory Respiratory exam: Present: decreased breath sounds, rhonchi. Absent: chest wall tenderness, rales, respiratory distress, wheezes, tachypnea - Cardiovascular Cardiovascular exam: Present: RRR, +S1, +S2. Absent: bradycardia, clicks, diastolic murmur, gallop, systolic murmur, tachycardia - GI/Abdominal GI/Abdominal exam: Present: normal bowel sounds, soft. Absent: distended, hepatomegaly, tenderness - Extremities Exam Extremities exam: Present: normal capillary refill, warm, radial pulses palpable and symetrical. Absent: pedal edema, tenderness - Neurological Exam Neurological exam: Present: alert, oriented X3, no focal deficits. Absent: facial droop, speech deficit - Skin Skin exam: Present: dry, intact, normal color, warm. Absent: rash, urticaria
[2016-12-09 11:43] LABS: CK-BB (CK isoenzymes) 0 % (0-0); CK-MB (CK isoenzymes) 0 % (0-4); CK-MM (CK-isoenzymes) 100 % (96-100)
[2016-12-09 12:17] LABS: CK Total (Ck Isoenzymes) 3939 U/L (20-200)
--- NOTE | 2016-12-09 15:03 | Nuclear Medicine Stress Report ---
Regadenoson Nuclear Stress Name: Lito Oro Date of Study: 12/07/2016 Date: 1950 Ht: 70.0 in Medical Record#: [id number] Age: 66 Wt: 214.0 lb Gender: Male Order #: [id number] Location: [facility] Room: [facility] Supervising Provider: Lalito Becerra CNP Reading Physician: Anaid Springer DO Ordering Physician: Lalito Becerra CNP Primary Care Physician: [facility] Stress Technologist: Lucius Lazo, PROCESS DESCRIPTION WRITER, CPFT Medical Dir: Neel Torres Indications: Chest Pain Impression: Perfusion imaging was negative for ischemia or infarct. Bowel wall attenuation of the inferior wall. Pharmacologic ECG was negative for ischemia at the level of heart rate achieved. Gated EF = 61%. History: Hypertension Diabetes Hypercholesteremia History of Smoking Stress Test Summary: Stress Test Type: Pharmacologic Regadenoson 0.4mg/5ml given IV Baseline Information: Initial Heart Rate: 75 Blood Pressure: 108/62 Stress Information: Stress Time: 4 min 00 sec Test Terminated Due to (primary): As per protocol Maximum Blood Pressure: 94/54 Maximum Heart Rate: 93 Percent Maximum Heart Rate Achieved: 61 Double Product: [id number] METS Reached: 1 Symptoms: Shortness of breath Nuclear Summary: SPECT myocardial perfusion imaging using Tc99m Sestamibi given intravenously was performed at rest and following cardiac stress testing. The resting images were obtained following initial dose of 11.8 mCi. Following stress an additional dose of 35.0 mCi was given at peak exercise or 30 seconds post regadenoson infusion. Medication Given: Time Medication Dose Units Route Findings: Stress Note * Resting ECG demonstrated normal sinus rhythm with LAD and IVCD. * Pharmacologic stress ECG is negative for ischemia at level of heart rate achieved. * No arrhythmias were noted during stress. * Patient had no chest pain during stress. Hemodynamic responses * Normal hemodynamic responses to pharmacologic stress. Study Quality * Study quality was fair. Gated EF % * Gated EF = 61%. Left Ventricle * The left ventricle is not dilated. TID * No evidence of transient ischemic dilatation. Lung Uptake * There is no evidence of increase lung uptake. NORMALS * Normal wall motion. PERFUSION * Bowel wall attenuation artifact of the inferior wall. * Other segments demonstrate normal rest and stress perfusion. Updated by Anaid Springer on 12/07/2016 12:29:22 PM electronically signed on 12/07/2016 12:32:29 PM with status of Final
--- NOTE | 2016-12-09 15:09 | Electrocardiograph Report ---
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
--- NOTE | 2016-12-09 15:10 | Electrocardiograph Report ---
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
[2016-12-12 07:54] LABS: CK-BB (CK isoenzymes) 0 % (0-0); CK-MB (CK isoenzymes) 0 % (0-4); CK-MM (CK-isoenzymes) 100 % (96-100)
[2016-12-12 13:14] LABS: CK Total (Ck Isoenzymes) 2179 U/L (20-200)
== END 2016-12-09 13:42 | DRG 192 ==
LOC: 3BNU 22:25 → EMEROO 22:25 → 3BNU 12-07 01:05
PROVIDERS: ADMIT Internal Medicine; ATTEND Registered Nurse

== ENCOUNTER 2018-09-10 10:58 | Inpatient (IN) ==
[2018-09-10] MEDS ORDERED: 0.9 % Sodium Chloride 1,000 ML IVC ONE (11:13)
[2018-09-10] MEDS ORDERED: *HR* Promethazine 25 MG/ML VIAL IVP ONE (11:13)
[2018-09-10] MEDS ORDERED: Pantoprazole 40 MG VIAL IVP ONE (11:13)
[2018-09-10] MEDS ORDERED: Folic Acid 1 MG TABLET PO STA (11:16)
[2018-09-10] MEDS ORDERED: *HR* LORazepam 2 MG/ML VIAL IVP PRN ×3 (11:16)
[2018-09-10] MEDS ORDERED: Thiamine (B-1) 100 MG TABLET PO STA (11:16)
[2018-09-10] MEDS ORDERED: Vitamin B Complex/Vit C/Vit E 1 EACH TABLET PO STA (11:16)
[2018-09-10] MEDS ORDERED: Octreotide 50 MCG/ML SYRINGE IVP ONE (11:23)
[2018-09-10] MEDS ORDERED: Pantoprazole 40 MG in 0.9 % Sodium Chloride Mini Bag 100 ML IVC SCH (11:30)
[2018-09-10 11:47] LABS: Basophils % 0.1 %; Hematocrit 18.8 % (37.5-50.1); Hemoglobin 6.3 g/dL (12.9-16.9); Immature Granulocytes % 1.7 % (0-4); Lymphocytes # 2.3 K/mcL (0.6-4.6); Lymphocytes % 10.4 %; Mean Corpuscular HGB Conc 33.5 g/dL (31.6-35.5); Mean Corpuscular Hemoglobin 34.8 pg (28.0-33.3); Mean Corpuscular Volume 103.9 fL (83.0-100.0); Mean Platelet Volume 12.8 fL (9.4-12.4); Monocytes # 2.1 K/mcL (0.0-1.3); Monocytes % 9.1 %; Neutrophils # 17.7 K/mcL (1.6-8.9); Nucleated Red Blood Cells 2.7 /100 WBC (0); Platelet Count 166 K/mcL (140-400); Red Blood Count 1.81 M/mcL (4.19-5.50); Red Cell Distribution Width 13.6 % (11.5-14.5); Segmented Neutrophils % 78.7 %
[2018-09-10] MEDS ORDERED: Thiamine (B-1) 100 MG, Folic Acid 1 MG, MVI, adult with vitamin K 10 ML in 0.9 % Sodi... IVPB STA (11:47)
--- NOTE | 2018-09-10 11:47 | Emergency Department Note ---
Disposition Clinical Impression: Upper gastrointestinal hemorrhage, Cellulitis of scrotum Esophageal varices Qualifiers: Esophageal varices type: unspecified type Esophageal varices bleeding: with bleeding Qualified Code(s): I85.01 - Esophageal varices with bleeding Cirrhosis Qualifiers: Hepatic cirrhosis type: alcoholic cirrhosis Ascites presence: without ascites Qualified Code(s): K70.30 - Alcoholic cirrhosis of liver without ascites Alcohol withdrawal Qualifiers: Complication of substance-induced condition: with unspecified complication Qualified Code(s): F10.239 - Alcohol dependence with withdrawal, unspecified Disposition: Admitted As Inpatient Condition: Critical Time of Disposition: 15:37 GI Bleed HPI - General Chief complaint: ED GI Bleed Stated complaint: black stool/coffee ground emesis Time Seen by Provider: 09/10/18 11:08 Source: patient, EMS Mode of arrival: EMS Limitations: no limitations Nursing Notes Reviewed: Yes Vital Signs Reviewed: Yes - History of Present Illness HPI Narrative: 68-year-old male with a past medical history of previous GI bleeds, esophageal varices, alcohol dependence. Patient states that for the last 4-5 days he has felt very unwell, has been vomiting and having dark tarry stools. He called EMS when he noted that he was having trouble standing. Also notes that he has fallen and struck his head. Patient states that he has had 2 coming to the [facility] for alcohol withdrawal before. Patient states that he drinks 212 packs and a half a fifth of vodka daily, although he relates that he has not done this in 4 or 5 days. He is complaining of abdominal pain at this time. He is also complaining of some scrotal pain. He has a history of cirrhosis, hepatitis C. - Related Data Home Medications Medication Instructions Recorded Confirmed Aspirin 81 mg PO DAILY 01/06/16 09/10/18 Cholecalciferol (D-3) [Vitamin D] 3,000 unit PO DAILY 12/09/16 09/10/18 Multivit-Min/FA/Lycopen/Lutein [A 1 tab PO DAILY 12/09/16 09/10/18 Thru Z [facility] Multivit Tab] Oxycodone HCl [Oxaydo] 5 mg PO BID PRN 12/09/16 09/10/18 traZODone [TraZODone] 50 mg PO HS PRN 12/09/16 09/10/18 Insulin Glargine [Lantus] 35 unit SQ DAILY 09/10/18 09/10/18 Lactulose [Enulose] 30 gm PO TID 09/10/18 09/10/18 Losartan [Cozaar] 25 mg PO DAILY 09/10/18 09/10/18 Morphine Sulfate [Arymo ER] 30 mg PO Q12H 09/10/18 09/10/18 Naproxen [EC-Naprosyn] 500 mg PO BID 09/10/18 09/10/18 Venlafaxine XR (24 HR) [Effexor XR] 150 mg PO DAILY 09/10/18 09/10/18 Allergies Allergy/AdvReac Type Severity Reaction Status Date / Time sertraline [From Zoloft] Allergy Nausea Verified 04/08/18 14:04 Review of Systems: All systems ED: reviewed and negative except as stated. Constitutional: Reports: fever, chills ENT ED: Denies: ear pain, throat pain Cardiovascular: Denies: chest pain, palpitations Respiratory: Denies: cough, dyspnea Gastrointestinal: Denies:constipation Reports: abdominal pain, nausea, vomiting, diarrhea, dark tarry stools, coffee ground emesis Genitourinary: Denies: urgency, dysuria, frequency Reports: scrotal pain Musculoskeletal: Denies: back pain, neck pain Integumentary: Denies: rash, abrasion Neurological: Denies: numbness, paresthesias Reports: headache, weakness, lightheadedness Psychiatric: Denies: anxiety, depression Endocrine: Denies: fatigue, heat or cold intolerance Hematological/Lymphatic: Reports: easy bleeding, easy bruising Allergic/Immunologic: Denies: facial swelling, urticaria Past Medical History - Past Medical History Attestation: Yes The following information was validated with the patient. Medical history: Reports: arthritis, cirrhosis, COPD, diabetes, GERD, GI bleed, hepatitis, hyperlipidemia, hypertension, kidney stones, liver disease, osteoporosis, other Surgical history: Reports: other Psychiatric history: Reports: anxiety, bipolar, depression, PTSD, other - Social History Smoking Status: Current every day smoker Smokeless Tobacco Status: No Alcohol use: Reports: heavy Drug use: Reports: prescription drug abuse Physical Exam General: Pt appears jaundiced. He has dark material around his mouth. He is shaking slightly. He is easily engaged in conversation. Head: atraumatic, normocephalic. ENT: No conjunctival injection, scleral icterus. Oropharynx non- erythematous. mucous membranes dry, pale. Neuro: No focal deficits, no speech deficit, no facial droop, mentating well. BUE/BLE Str 5/5. Pulm: Lungs CTAB A/P. No wheezes, rales, ronchi. Cardio: Tachycardia. Chest not tender to palpation. Abd: Soft, distended. Normoactive bowel sounds. Diffusely tender to palpation. No guarding. Non rigid. Extremities: Radial pulses 2+ se. Skin: Lower extremities covered in black material, consistent with stool. Psych: Appropriate mood and affect. Answers questions appropriately. Cooperative with exam. - General Limitations: no limitations General appearance: alert, in no apparent distress Course Course Narrative: Ddx includes but is not limited to: GIB, alcohol withdrawal Workup will include: 2Lg bore IVs, 1L NaCl, CBC< BMP, Type & screen, 2 units, Octreotide, protonix, ciwa scoring. Will admit. - Consultations Consultation #1: Discussion was had with RN for need for CVC given all of the drips needed. However, given that patient is agitated from alcohol withdrawal, it would be safest for patient to receive CVC while in the OR under sedation. Gastroent erology was consulted and they agreed to emergently take the patient to the OR for possible variceal banding. Dr. Dale from GI came directly to the ED to evaluate the patient and made this decision. Dr. Husain, production potter, agreed to accept the pt to ICU after procedure. Time: 15:32 Vital Signs Temperature 98.6 F 09/10/18 11:05 Pulse Rate 115 09/10/18 11:05 Respiratory Rate 26 09/10/18 11:05 Blood Pressure 135/66 09/10/18 11:05 O2 Sat by Pulse Oximetry 100 09/10/18 11:05 Temperature 98.7 F 09/10/18 13:06 Pulse Rate 113 09/10/18 15:27 Respiratory Rate 18 09/10/18 15:27 Blood Pressure 124/57 09/10/18 15:27 O2 Sat by Pulse Oximetry 100 09/10/18 15:27 Oxygen Delivery Oxygen Delivery Room Air GI Bleed - [facility] Narrative Medical decision making narrative: Patient's hemoglobin was 6, patient was ordered 3 units of blood. Patient was started on a banana bag while in the department. Patient's Hemoccult was positive. Gastroenterology was consulted and they agreed to take him to the OR for immediate procedure. Manager Of Financial Dr. Husain was consulted who agreed to take the patient to the ICU after the procedure. Patient's vitals remained hemodynamically stable while he was in the department. Patient was given Ativan which he did not tolerate, however he did tolerate the Valium. So CIWA scoring was changed to Valium. Pt given zosyn while in the department. - Medical Records Medical records reviewed: Yes I reviewed the patient's medical records. - Lab Data Lab results reviewed: Yes I reviewed the patient's lab results. Result diagrams: 09/19/18 03:30 09/19/18 03:30 Lab Results 09/10/18 09/10/18 09/10/18 Range/Units 11:19 11:19 11:19 WBC 22.5 H (4.3-11.1) K/mcL RBC 1.81 L (4.19-5.50) M/mcL Hgb 6.3 L (12.9-16.9) g/dL Hct 18.8 L (37.5-50.1) % MCV 103.9 H (83.0-100.0) fL MCH 34.8 H (28.0-33.3) pg MCHC 33.5 (31.6-35.5) g/dL RDW 13.6 (11.5-14.5) % Plt Count 166 (140-400) K/mcL MPV 12.8 H (9.4-12.4) fL Immature Gran % 1.7 (0-4) % Seg Neutrophils % 78.7 % Lymphocytes % 10.4 % Monocytes % 9.1 % Eosinophils % 0.0 % Basophils % 0.1 % Neutrophils # 17.7 H (1.6-8.9) K/mcL Lymphocytes # 2.3 (0.6-4.6) K/mcL Monocytes # 2.1 H (0.0-1.3) K/mcL Eosinophils # 0.0 (0.0-0.6) K/mcL Basophils # 0.0 (0.0-0.2) K/mcL Nucleated RBCs/100 WBC 2.7 H (0) /100 WBC PT 17.1 H (9.4-12.1) Seconds INR 1.5 APTT 23.5 L (26.0-36.0) Seconds Sodium 138 (136-145) mEq/L Potassium 4.5 (3.5-5.1) mEq/L Chloride 110 H (98-107) mEq/L Carbon Dioxide 14 L (23-29) mEq/L BUN 66 H (8-23) mg/dL Creatinine 1.56 H (0.70-1.30) mg/dL Est GFR ( Amer) 54 L (> 60) Est GFR (Non-Af Amer) 44 L (> 60) BUN/Creatinine Ratio 42 H (6-26) Glucose 370 H (70-105) mg/dL Calculated Osmolality 320 H (280-300) Calcium 7.5 L (8.6-10.3) mg/dL Total Bilirubin 1.0 (0.3-1.0) mg/dL AST 47 H (13-39) Units/L ALT 37 (7-52) Units/L Alkaline Phosphatase 63 (34-104) Units/L Ammonia (16-53) mcmol/L Troponin I 0.07 H* (< 0.04) ng/mL Serum Total Protein 4.4 L (6.4-8.9) g/dL Albumin 2.7 L (3.5-5.7) g/dL Globulin 1.7 L (2.4-3.5) g/dL Albumin/Globulin Ratio 1.6 (1.1-2.2) Lipase 48 (11-82) Units/L Stool Occult Bld Scrn (Negative) Ethyl Alcohol < 10 (Less than 10) mg/dL Blood Type Antibody Screen Crossmatch 09/10/18 09/10/18 09/10/18 Range/Units 11:19 11:19 11:33 WBC (4.3-11.1) K/mcL RBC (4.19-5.50) M/mcL Hgb (12.9-16.9) g/dL Hct (37.5-50.1) % MCV (83.0-100.0) fL MCH (28.0-33.3) pg MCHC (31.6-35.5) g/dL RDW (11.5-14.5) % Plt Count (140-400) K/mcL MPV (9.4-12.4) fL Immature Gran % (0-4) % Seg Neutrophils % % Lymphocytes % % Monocytes % % Eosinophils % % Basophils % % Neutrophils # (1.6-8.9) K/mcL Lymphocytes # (0.6-4.6) K/mcL Monocytes # (0.0-1.3) K/mcL Eosinophils # (0.0-0.6) K/mcL Basophils # (0.0-0.2) K/mcL Nucleated RBCs/100 WBC (0) /100 WBC PT (9.4-12.1) Seconds INR APTT (26.0-36.0) Seconds Sodium (136-145) mEq/L Potassium (3.5-5.1) mEq/L Chloride (98-107) mEq/L Carbon Dioxide (23-29) mEq/L BUN (8-23) mg/dL Creatinine (0.70-1.30) mg/dL Est GFR ( Amer) (> 60) Est GFR (Non-Af Amer) (> 60) BUN/Creatinine Ratio (6-26) Glucose (70-105) mg/dL Calculated Osmolality (280-300) Calcium (8.6-10.3) mg/dL Total Bilirubin (0.3-1.0) mg/dL AST (13-39) Units/L ALT (7-52) Units/L Alkaline Phosphatase (34-104) Units/L Ammonia 56 H (16-53) mcmol/L Troponin I (< 0.04) ng/mL Serum Total Protein (6.4-8.9) g/dL Albumin (3.5-5.7) g/dL Globulin (2.4-3.5) g/dL Albumin/Globulin Ratio (1.1-2.2) Lipase (11-82) Units/L Stool Occult Bld Scrn Positive A (Negative) Ethyl Alcohol (Less than 10) mg/dL Blood Type A POSITIVE Antibody Screen NEGATIVE Crossmatch See Detail - Radiology Data Radiology results reviewed: Yes I reviewed the patient's radiology results. Abdomen/Pelvis CT 09/10/18 11:54 IMPRESSION: 1. No acute findings within the abdomen or pelvis to explain the patient's pain. No evidence of obstructive uropathy or appendicitis. Diverticulosis with no acute features. 2. Cirrhosis with enlarged gastric and retroperitoneal varices. No splenomegaly or ascites. 3. Nonobstructive right-sided nephrolithiasis. D/ / 09/10/2018 14:00:52 Franco Gauthier MD / rosa Interpreting Provider: Franco Gauthier MD Head CT 09/10/18 11:54 IMPRESSION: No acute intracranial abnormality. D/ / Devon Stevens MD / Devon Stevens MD Interpreting Provider: Devon Stevens MD - EKG Data EKG attestation: Yes I reviewed and interpreted this EKG. EKG results narrative: HR 114, rhythm sinus tachycardia, axis borderline left at -16. MS 165, QRS 105, QTc 477. <1mm ST depression in V5-V6 new from previous study on 04/08/18. Attestation Statement - Attestation Attestation: I have seen this patient with the resident physician, I have personally evaluated this patient. I had reviewed the chart and document dictation by the resident physician and aM in agreement with the information documented by the resident physician. Please see documentation by the resident physician for complete chart including past medical history, family medical history, review of systems, current history and physical and laboratory and imaging studies. I was present for all procedures, provided direct supervision for all procedures, was present for the entirety of all procedures and provided direct guidance during the procedures. Please see documentation by the resident physician for any procedures performed.
[2018-09-10] MEDS ORDERED: Piperacillin/Tazobactam 3.375 GM in Water for inj. (sterile) 20 ML 20 ML IVP ONE (11:54)
[2018-09-10 11:59] LABS: INR 1.5; Prothrombin Time 17.1 Seconds (9.4-12.1)
[2018-09-10 12:01] LABS: Activated Partial Thrombo Time 23.5 Seconds (26.0-36.0)
[2018-09-10] MEDS ORDERED: diazePAM 10 MG/2 ML SYRINGE IVP PRN ×5 (12:09)
[2018-09-10] MEDS ORDERED: Octreotide 400 MCG in 0.9 % Sodium Chloride 100 ML IVC SCH (12:15)
--- NOTE | 2018-09-10 12:22 | Emergency Department Note ---
Disposition Clinical Impression: Upper gastrointestinal hemorrhage, Esophageal varices, Cirrhosis, Cellulitis of scrotum, Alcohol withdrawal Disposition: Admitted As Inpatient Condition: Critical [facility] Care Provider[facility] - Forms: ED Satisfaction Letter Time of Disposition: 14:11 General Adult HPI - General Chief complaint: ED GI Bleed Stated complaint: black stool/coffee ground emesis Time Seen by Provider: 09/10/18 11:08 Source: patient, EMS Mode of arrival: EMS Limitations: no limitations Nursing Notes Reviewed: Yes Vital Signs Reviewed: Yes - History of Present Illness Pain Scale: 10 - Related Data Home Medications Medication Instructions Recorded Confirmed Aspirin 81 mg PO DAILY 01/06/16 04/15/18 Morphine Sulfate 30 mg PO Q12H 01/06/16 04/15/18 ARIPiprazole [Abilify] 20 mg PO HS 12/09/16 04/15/18 Cholecalciferol (D-3) [Vitamin D] 3,000 unit PO DAILY 12/09/16 04/15/18 Losartan Potassium [Cozaar] 25 mg PO DAILY 12/09/16 04/15/18 Multivit-Min/FA/Lycopen/Lutein [A 1 tab PO DAILY 12/09/16 04/15/18 Thru Z Select Multivit Tab] Oxycodone HCl [Oxaydo] 5 mg PO Q6H PRN 12/09/16 04/15/18 Topiramate [Topamax] 25 mg PO HS 12/09/16 04/15/18 Triamcinolone Acet 0.1% CRM 1 appl TP BID PRN 12/09/16 04/15/18 [Kenalog] Venlafaxine XR (24 HR) [Effexor XR] 75 mg PO DAILY 12/09/16 04/15/18 traZODone [TraZODone] 50 mg PO HS PRN 12/09/16 04/15/18 Atorvastatin Calcium [Lipitor] 40 mg PO HS 02/12/17 04/15/18 Pantoprazole Sodium [Protonix] 20 mg PO DAILY 02/12/17 04/15/18 Previous Rx's Medication Instructions Recorded Metformin HCl [Glucophage] 1,000 mg PO BID #60 tablet 02/15/17 Ondansetron ODT [Zofran ODT] 4 mg SL Q8HR PRN #12 tab.rapdis 04/15/18 Allergies Allergy/AdvReac Type Severity Reaction Status Date / Time sertraline [From Zoloft] Allergy Nausea Verified 04/08/18 14:04 Past Medical History - Past Medical History Medical history: Reports: arthritis, cirrhosis, COPD, diabetes, GERD, GI bleed, hepatitis, hyperlipidemia, hypertension, kidney stones, liver disease, osteoporosis, other Surgical history: Reports: other Psychiatric history: Reports: anxiety, bipolar, depression, PTSD, other - Social History Smoking Status: Current every day smoker Smokeless Tobacco Status: No Alcohol use: Reports: heavy Drug use: Reports: prescription drug abuse Physical Exam - General Limitations: no limitations General appearance: alert, in no apparent distress Course Vital Signs Temperature 98.6 F 09/10/18 11:05 Pulse Rate 115 09/10/18 11:05 Respiratory Rate 26 09/10/18 11:05 Blood Pressure 135/66 09/10/18 11:05 O2 Sat by Pulse Oximetry 100 09/10/18 11:05 Temperature 98.7 F 09/10/18 13:06 Pulse Rate 113 09/10/18 13:06 Respiratory Rate 20 09/10/18 13:06 Blood Pressure 137/83 09/10/18 13:06 O2 Sat by Pulse Oximetry 98 09/10/18 13:06 Oxygen Delivery Oxygen Delivery Room Air Medical Decision Making - Medical Records Medical records reviewed: Yes I reviewed the patient's medical records. - Lab Data Lab results reviewed: Yes I reviewed the patient's lab results. Result diagrams: 09/10/18 11:19 09/10/18 11:19 Lab Results 09/10/18 09/10/18 09/10/18 Range/Units 11:19 11:19 11:19 WBC 22.5 H (4.3-11.1) K/mcL RBC 1.81 L (4.19-5.50) M/mcL Hgb 6.3 L (12.9-16.9) g/dL Hct 18.8 L (37.5-50.1) % MCV 103.9 H (83.0-100.0) fL MCH 34.8 H (28.0-33.3) pg MCHC 33.5 (31.6-35.5) g/dL RDW 13.6 (11.5-14.5) % Plt Count 166 (140-400) K/mcL MPV 12.8 H (9.4-12.4) fL Immature Gran % 1.7 (0-4) % Seg Neutrophils % 78.7 % Lymphocytes % 10.4 % Monocytes % 9.1 % Eosinophils % 0.0 % Basophils % 0.1 % Neutrophils # 17.7 H (1.6-8.9) K/mcL Lymphocytes # 2.3 (0.6-4.6) K/mcL Monocytes # 2.1 H (0.0-1.3) K/mcL Eosinophils # 0.0 (0.0-0.6) K/mcL Basophils # 0.0 (0.0-0.2) K/mcL Nucleated RBCs/100 WBC 2.7 H (0) /100 WBC PT 17.1 H (9.4-12.1) Seconds INR 1.5 APTT 23.5 L (26.0-36.0) Seconds Sodium 138 (136-145) mEq/L Potassium 4.5 (3.5-5.1) mEq/L Chloride 110 H (98-107) mEq/L Carbon Dioxide 14 L (23-29) mEq/L BUN 66 H (8-23) mg/dL Creatinine 1.56 H (0.70-1.30) mg/dL Est GFR ( Amer) 54 L (> 60) Est GFR (Non-Af Amer) 44 L (> 60) BUN/Creatinine Ratio 42 H (6-26) Glucose 370 H (70-105) mg/dL Calculated Osmolality 320 H (280-300) Calcium 7.5 L (8.6-10.3) mg/dL Total Bilirubin 1.0 (0.3-1.0) mg/dL AST 47 H (13-39) Units/L ALT 37 (7-52) Units/L Alkaline Phosphatase 63 (34-104) Units/L Ammonia (16-53) mcmol/L Troponin I 0.07 H* (< 0.04) ng/mL Serum Total Protein 4.4 L (6.4-8.9) g/dL Albumin 2.7 L (3.5-5.7) g/dL Globulin 1.7 L (2.4-3.5) g/dL Albumin/Globulin Ratio 1.6 (1.1-2.2) Lipase 48 (11-82) Units/L Stool Occult Bld Scrn (Negative) Ethyl Alcohol < 10 (Less than 10) mg/dL Blood Type Antibody Screen Crossmatch 09/10/18 09/10/18 09/10/18 Range/Units 11:19 11:19 11:33 WBC (4.3-11.1) K/mcL RBC (4.19-5.50) M/mcL Hgb (12.9-16.9) g/dL Hct (37.5-50.1) % MCV (83.0-100.0) fL MCH (28.0-33.3) pg MCHC (31.6-35.5) g/dL RDW (11.5-14.5) % Plt Count (140-400) K/mcL MPV (9.4-12.4) fL Immature Gran % (0-4) % Seg Neutrophils % % Lymphocytes % % Monocytes % % Eosinophils % % Basophils % % Neutrophils # (1.6-8.9) K/mcL Lymphocytes # (0.6-4.6) K/mcL Monocytes # (0.0-1.3) K/mcL Eosinophils # (0.0-0.6) K/mcL Basophils # (0.0-0.2) K/mcL Nucleated RBCs/100 WBC (0) /100 WBC PT (9.4-12.1) Seconds INR APTT (26.0-36.0) Seconds Sodium (136-145) mEq/L Potassium (3.5-5.1) mEq/L Chloride (98-107) mEq/L Carbon Dioxide (23-29) mEq/L BUN (8-23) mg/dL Creatinine (0.70-1.30) mg/dL Est GFR ( Amer) (> 60) Est GFR (Non-Af Amer) (> 60) BUN/Creatinine Ratio (6-26) Glucose (70-105) mg/dL Calculated Osmolality (280-300) Calcium (8.6-10.3) mg/dL Total Bilirubin (0.3-1.0) mg/dL AST (13-39) Units/L ALT (7-52) Units/L Alkaline Phosphatase (34-104) Units/L Ammonia 56 H (16-53) mcmol/L Troponin I (< 0.04) ng/mL Serum Total Protein (6.4-8.9) g/dL Albumin (3.5-5.7) g/dL Globulin (2.4-3.5) g/dL Albumin/Globulin Ratio (1.1-2.2) Lipase (11-82) Units/L Stool Occult Bld Scrn Positive A (Negative) Ethyl Alcohol (Less than 10) mg/dL Blood Type A POSITIVE Antibody Screen NEGATIVE Crossmatch See Detail - Radiology Data Radiology results reviewed: Yes I reviewed the patient's radiology results. Attestation Statement - Attestation Attestation: I have seen this patient with the resident physician, I have personally evaluated this patient. I had reviewed the chart and document dictation by the resident physician and aM in agreement with the information documented by the resident physician. Please see documentation by the resident physician for complete chart including past medical history, family medical history, review of systems, current history and physical and laboratory and imaging studies. I was present for all procedures, provided direct supervision for all procedures, was present for the entirety of all procedures and provided direct guidance during the procedures. Please see documentation by the resident physician for any procedures performed. Patient presents emergency Department with chief complaint of 4-5 days of intractable vomiting and progressive black stool vomiting up coffee ground or black-appearing emesis. He has a long-standing history of multiple medical problems including hepatitis C, daily alcohol abuse and cirrhosis and esophageal varices. He states the last time he had to be scoped was about 2-3 years ago he has never been this sick before. He states anytime he tries to stand up he just falls over he has seemingly likely passed out and hit his head a couple times. He complains of significant upper abdominal pain. He denies headache he denies unilateral numbness or weakness. He states that he typically drinks 24 beers a day, and half a fifth of vodka, but states he has not been able to drink in the last 4-5 days secondary to the above issues. He denies significant chest pain or shortness of breath states he has actually no energy. He denies urinary changes, he states that he has been incontinent of loose black stool. He just cannot get up and make it to the bathroom. The patient denies taking any blood thinners. Upon presentation the patient is very ill in appearance, awake and talking, he is not hypotensive but is tachycardic with heart rate 115, systolic blood pressures are in the 130s. Cranial nerves are grossly intact, his tongue is very pale and dry, he has clinical evidence of jaundice as well. Patient has dried black-appearing emesis around his mouth, and his legs are covered in black stool, heart is regular but tachycardic, no obvious murmurs rubs or gallops. Lungs are clear. Abdomen reveals moderate tenderness of the upper abdomen, but no rebound guarding or peritoneal sign, melena as noted per rectum. The patient also has diffuse erythema and slight weeping of his scrotum, as he reports that he has been sitting in his own stool for 5 days, there is no true skin breakdown and no palpable crepitus no ecchymosis, or findings are concerning for cellulitis at minimum of the scrotum but does not clinically appear like true necrotizing fasciitis or Vaughn's gangrene at this time. There is a follow odor to the region. He has palpable distal pulses and no focal neurologic findings, no obvious asterixis. He does appear slightly shaky. HEENT 2 large-bore IVs established, he received a liter bolus of IV fluids, was started on a proton pump inhibitor drip and bolus protocol, started on IV octreotide, he was given IV Zosyn for antibiotic coverage for likely variceal bleeding, as well as to cover potential cellulitis of the scrotum. 3 units of blood were ordered. We immediately contacted GI, discuss consideration of IV tranexamic acid, as well as DDAVP, they state that they would not do this at this time but they will provide urgent management and endoscopy for this patient in consultation in this regard. He does not have a leukocytosis 22,000, hemoglobin was 6.3 with a baseline from 5 months ago of 15.1. Platelets were within acceptable limits. EKG was sinus rhythm sinus tachycardia but with new T-wave inversions in the lateral leads concerning for potential demand ischemia, transfusion as above, no anticoagulants secondary to significant increased active bleeding. INR is 1.5. Ammonia was 56. Secondary to the patient's abdominal pain and tenderness a CT scan of the abdomen and pelvis was ordered, secondary to him passing out and hitting his head or at least falling and hitting his head at home, with him being a daily drinker, and likely poor platelet function, head CT was also ordered. Renal panel showed slightly low bicarbonate 14 but no anion gap, likely related to profound diarrhea.. Creatinine was 1.56 up slightly with an elevated BUNs consistent with upper GI bleeding and critical evidence of dehydration. Troponin was 0.07, had reviewed his chart the last time he had a similar episode, with anemia he had demand ischemia and troponin increased to 0.29 and then down trended to 0.08, 0.07, no anticoagulation secondary to severe GI bleeding, already receiving a transfusion. Also secondary to this patient's history of daily alcohol abuse a banana bag was given to this patient. While he was in the emergency department he did start to have symptoms of alcohol withdrawal, his ethanol level was undetectable, he developed increasing agitation, and visual hallucinations, requiring Ativan and Valium. CT head and abdomen and pelvis showed no acute pathology is interpreted by radiology there were visualized gastric and retroperitoneal varices seen by CT, but no other acute inflammatory or acute abnormality noted, and no evidence of peroneal gas. Patient will be admitted to the ICU, for further management, with consultation from GI as already arranged above. Diagnoses include scrotal cellulitis without evidence of Vaughn's gangrene, upper GI bleed, esophageal varices, abdominal pain, syncope, acute anemia, borderline troponin elevation, leukocytosis, alcohol withdrawal, cirrhosis, alcohol abuse. Total critical care time as provided by myself excluding any procedures performed was 70 minutes
[2018-09-10 12:33] LABS: Alanine Aminotransferase 37 Units/L (7-52); Albumin 2.7 g/dL (3.5-5.7); Albumin/Globulin Ratio 1.6 (1.1-2.2); Alkaline Phosphatase 63 Units/L (34-104); Aspartate Amino Transferase 47 Units/L (13-39); BUN/Creatinine Ratio 42 (6-26); Blood Urea Nitrogen 66 mg/dL (8-23); Calcium 7.5 mg/dL (8.6-10.3); Carbon Dioxide 14 mEq/L (23-29); Chloride 110 mEq/L (98-107); Ethanol < 10 mg/dL (Less than 10); Globulin 1.7 g/dL (2.4-3.5); Glucose 370 mg/dL (70-105); Lipase 48 Units/L (11-82); Osmolality,Calculated 320 (280-300); Potassium 4.5 mEq/L (3.5-5.1); Sodium 138 mEq/L (136-145); Total Protein 4.4 g/dL (6.4-8.9); Troponin I 0.07 ng/mL (< 0.04); eGFR For Non-African Americans 44 (> 60)
[2018-09-10] MEDS ORDERED: diazePAM 10 MG/2 ML SYRINGE IVP STA ×2 (12:33→13:14)
[2018-09-10] MEDS ORDERED: 0.9 % Sodium Chloride 250 ML ONE ×2 (12:38→20:33)
[2018-09-10] MEDS ORDERED: Ondansetron 4 MG/2 ML VIAL ONE (15:28)
[2018-09-10] MEDS ORDERED: *HR* Rocuronium Bromide 50 MG/5 ML VIAL ONE (15:28)
[2018-09-10] MEDS ORDERED: Lidocaine -MPF 2% 2 ML VIAL ONE (15:28)
[2018-09-10] MEDS ORDERED: Dexamethasone 4 MG/ML VIAL ONE (15:28)
[2018-09-10] MEDS ORDERED: Lidocaine -MPF 4% 5 ML AMPUL ONE (15:28)
[2018-09-10] MEDS ORDERED: *HR* Propofol 200 MG/20 ML VIAL IVP ONE (15:29)
[2018-09-10] MEDS ORDERED: *HR* FentaNYL (PF) 100 MCG/2 ML VIAL ONE (15:29)
[2018-09-10] MEDS ORDERED: *HR* Succinylcholine 200 MG/10 ML VIAL IVP ONE (15:30)
--- NOTE | 2018-09-10 15:31 | Anesthesia Evaluation PreOp ---
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 Any Significant HX Other Medical History: Hepatic (Alcoholic cirrhosis with associated GIB), Diabetes Type II, GERD, Other (GIB x 4days - per ER admission) Anesthesia History: No Prior Anesthetic Complications, Past Anesthesia (R-foot debridement/Soft tissue mass excision) Alcohol Use: heavy Drug use: prescription drug abuse Medications and Allergies Aspirin 81 mg PO DAILY 01/06/16 [History] Cholecalciferol (D-3) [Vitamin D] 3,000 unit PO DAILY 12/09/16 [History] Multivit-Min/FA/Lycopen/Lutein [A Thru Z Select Multivit Tab] 1 tab PO DAILY 12/09/16 [History] Oxycodone HCl [Oxaydo] 5 mg PO BID PRN 12/09/16 [History] traZODone [TraZODone] 50 mg PO HS PRN 12/09/16 [History] Insulin Glargine [Lantus] 35 unit SQ DAILY 09/10/18 [History] Lactulose [Enulose] 30 gm PO TID 09/10/18 [History] Losartan [Cozaar] 25 mg PO DAILY 09/10/18 [History] Morphine Sulfate [Arymo ER] 30 mg PO Q12H 09/10/18 [History] Naproxen [EC-Naprosyn] 500 mg PO BID 09/10/18 [History] Venlafaxine XR (24 HR) [Effexor XR] 150 mg PO DAILY 09/10/18 [History] Allergy/AdvReac Type Severity Reaction Status Date / Time sertraline [From Zoloft] Allergy Nausea Verified 04/08/18 14:04 Anesthesia Results - Labs 09/10/18 11:19 09/10/18 11:19 Laboratory Tests 02/13/17 02/13/17 09/10/18 09:21 09:21 11:19 PT 17.1 H INR 1.5 APTT 23.5 L Est GFR (Non-Af Amer) Troponin I [id number] 88 L Stool Occult Bld Scrn Ethyl Alcohol Hepatitis C Ab Screen Reactive H 09/10/18 09/10/18 11:19 11:33 PT INR APTT Est GFR (Non-Af Amer) 44 L Troponin I 0.07 H* [id number] Stool Occult Bld Scrn Positive A Ethyl Alcohol < 10 Hepatitis C Ab Screen Impressions Abdomen/Pelvis CT 09/10/18 11:54 IMPRESSION: 1. No acute findings within the abdomen or pelvis to explain the patient's pain. No evidence of obstructive uropathy or appendicitis. Diverticulosis with no acute features. 2. Cirrhosis with enlarged gastric and retroperitoneal varices. No splenomegaly or ascites. 3. Nonobstructive right-sided nephrolithiasis. D/ / 09/10/2018 14:00:52 Franco Gauthier MD / rosa Interpreting Provider: Franco Gauthier MD - Imaging EKG: report reviewed (77bpm - Interpretive Statements SINUS RHYTHM WITH FIRST DEGREE AV BLOCK Electronically Signed On 04-09-2018 14:12:40 EST by Robert Calvo) Additional studies: Stress 12/2016 Stress Note * Resting ECG demonstrated normal sinus rhythm with LAD and IVCD. * Pharmacologic stress ECG is negative for ischemia at level of heart rate achieved. * No arrhythmias were noted during stress. * Patient had no chest pain during stress. Hemodynamic responses * Normal hemodynamic responses to pharmacologic stress. Study Quality * Study quality was fair. Gated EF % * Gated EF = 61%. Left Ventricle * The left ventricle is not dilated. TID * No evidence of transient ischemic dilatation. Lung Uptake * There is no evidence of increase lung uptake. NORMALS * Normal wall motion. PERFUSION * Bowel wall attenuation artifact of the inferior wall. * Other segments demonstrate normal rest and stress perfusion. Updated by Anaid Springer on 12/07/2016 12:29:22 PM ECHO 12/2016 EV/EV echocardiogram Impressions: Normal left ventricular size and systolic function. LVEF 55-60%. Mild concentric hypertrophy of the left ventricle. Normal right ventricular size and function. No significant valvular dysfunction. Unable to adequately assess RVSP due to inadequate TR jet. Left Ventricular Wall Motion: Rest Echo Findings All wall segments showed normal motion. Findings: Study Quality * Technically adequate exam. ECG Findings * Normal sinus rhythm. Left Ventricle * LVEF 55-60%. * Normal LV chamber size, wall thickness and function. * Mild concentric left ventricular hypertrophy. * Normal left ventricular diastolic function. Right Ventricle * Normal right ventricular structure and function. Left Atrium * Normal left atrial size. Right Atrium * Normal right atrial size. Interatrial Septum * Interatrial septum not well evaluated. Aortic Valve * Trileaflet aortic valve. * Trileaflet aortic valve with normal function. * No aortic stenosis. * No aortic regurgitation. Mitral Valve * Normal mitral valve structure and function. Tricuspid Valve * Normal tricuspid valve structure. * Trace tricuspid regurgitation. * Unable to estimate RVSP due to lack of TR jet. Pulmonic Valve * Pulmonic valve not well visualized. Aorta * Normally sized aortic root. Pericardium * The pericardium appears normal. IVC * The IVC is not well evaluated. Anesthesia Exam Vital Signs Temp Pulse Resp BP Pulse Ox 09/10/18 15:27 113 18 124/57 100 09/10/18 14:15 112 26 130/70 100 09/10/18 13:06 98.7 F 113 20 137/83 98 09/10/18 12:51 98.4 F 112 22 146/66 98 09/10/18 12:28 71 16 118/72 98 09/10/18 11:54 118 20 115/70 100 09/10/18 11:53 100 09/10/18 11:05 98.6 F 115 26 135/66 100 Intake and Output 09/09/18 09/10/18 09/10/18 23:59 07:59 15:59 Intake Total 0 / 0 Balance 0 / 0 Intake: Blood Product 0 / 0 Rbcs Leuko Poor As-1 Unit 0 / 0 [id number] Other: Weight 114.714 kg Height: 6' Weight: 252# BMI = 34 NPO (# of Hours): MNOc - HEENT Pupil (Motor): Pupils equal, EOMI Mallampati: III Teeth: Edentulous Oral Opening: Greater than 3 - STEELWORKER LOC: Unable to assess (PT obtunded and very anemic, could only express "uh Huh" or grunt an "OK " to staff. Deemed emergent conset by Chito and ED physician.) STEELWORKER Motor: Normal RUE, Normal LUE, Normal RLE, Normal LLE, Normal Face STEELWORKER Sensory: Normal: RUE, LUE, RLE, LLE, Face - Cardiac Rhythm: Regular (Tachy) - Pulmonary Breath Sounds: bilateral Clear Respiratory Effort: Symmetrical Anesthesia Assess/Plan ASA Score: 4 (Acute GIB, Hep C+, EtOH cirrhoisis, COPD/[id number] trypsin deficiency, CAD, Smoker, HTN, chol, AGUSTIN), E Level of consciousness: Asleep with sluggish response to stimulus Anesthetic Plan: General, Regional Nerve Block Autologous Blood: Yes Monitoring Plan: Standard Monitors Recovery Plan: PACU Anes Supervising Prov Stmt: Pt seen/evaluated, PTp obtunded and unable to properly consent....deemed emergent case by Dr. Dale. Terence Hicks MD
--- NOTE | 2018-09-10 15:32 | Pulmonology History & Physical ---
<Alexia Patel N - Last Filed: 09/10/18 18:11> Date of Encounter: 09/10/18 Time of Encounter: 15:29 Assessment and Plan (1) Upper gastrointestinal hemorrhage Current visit: Yes Status: Acute Patient presented with a history of multiple episodes of melena and coffee- ground emesis. Laboratory studies were significant for hemoglobin of 6.3. Patient is currently being transfused 1 unit of PRBC, with additional 2 units order to follow. - Emergent endoscopy in operating room by GI team. - Continue Protonix and octreotide gtt. - Continue zosyn 3.375 Q8H for SBP prophylaxis. - Monitor hemoglobin and hematocrit Q6H, with repeat transfusion as indicated. (2) Acute blood loss anemia Current visit: Yes Status: Acute Secondary to acute GI bleed. Plan as above. (3) Esophageal varices Current visit: Yes Status: Acute History of esophageal varices. Concern that this may be current source of bleeding. Plan as above. Qualifiers: Esophageal varices type: unspecified type Esophageal varices bleeding: with bleeding Qualified Code(s): I85.01 - Esophageal varices with bleeding (4) Alcohol withdrawal Current visit: Yes Status: Acute Long-term history of heavy alcohol use. Patient was initially started on [place] protocol with Ativan in the emergency department; however, he did not react well to this medication, was noted to be further agitated. - Continue precedex for sedation. - Continue IV thiamine/folic acid/multivitamin. - Social work consult placed. Patient will require PT/OT evaluation as well prior to discharge. Qualifiers: Complication of substance-induced condition: with unspecified complication Qualified Code(s): F10.239 - Alcohol dependence with withdrawal, unspecified (5) Cirrhosis Current visit: No Status: Chronic History of hepatic cirrhosis, likely secondary to chronic alcohol abuse. CT of the abdomen and pelvis demonstrated cirrhosis with a large gastric and retroperitoneal varices. Laboratory studies were significant for elevated AST of 47 and ammonia 56. - Continue to monitor and trend hepatic panel. - Avoid hepatotoxic medications as much as possible. Qualifiers: Hepatic cirrhosis type: alcoholic cirrhosis Ascites presence: unspecified Qualified Code(s): K70.30 - Alcoholic cirrhosis of liver without ascites (6) Leukocytosis Current visit: Yes Status: Acute Kiki secondary to repeated emesis. - Continue prophylactic antimicrobial therapy with with Zosyn 3.375mg Q8H. Qualifiers: Leukocytosis type: unspecified Qualified Code(s): D72.829 - Elevated white blood cell count, unspecified (7) Elevated troponin Current visit: Yes Status: Acute Suspect secondary to demand ischemia. Patient has had similar troponin elevations in the past, which did resolve. - Continue telemetry monitoring. - Repeat an trend troponins Q6H. (8) SPIKE (acute kidney injury) Current visit: Yes Status: Acute Suspect secondary to dehydration from reduced PO intake and acute blood loss. Serum creatinine noted to be elevated at 1.56. Review of previous laboratory studies show his baseline creatinine to be between 0.8-1.0. - Continue IVF hydration with 0.9% NaCl @100mL/hr. - Repeat an trend Alexx serum creatinine. - Avoid nephrotoxins and renally dose medications as appropriate. (9) Diabetes mellitus Current visit: No Status: Chronic History of type 2 diabetes on 35 units of Lantus daily. - Accuchecks and low-dose SSI Q6H while NPO. Qualifiers: Diabetes mellitus type: type 2 Diabetes mellitus residential insulin use: with residential use Diabetes mellitus complication status: with unspecified complications Qualified Code(s): E11.8 - Type 2 diabetes mellitus with unspecified complications; Z79.4 - director long term care (current) use of insulin (10) Hypertension Current visit: Yes Status: Acute History of hypertension, with home medication of losartan 25 mg daily. - Hold losartan at this time due to presence of SPIKE. - Consider PRN antihypertensive agents if patient becomes increasingly hy pertensive after endoscopy and appropriate resuscitation. Qualifiers: Hypertension type: unspecified Qualified Code(s): I10 - Essential (primary) hypertension (11) Anxiety and depression Current visit: Yes Status: Acute History of anxiety and depression. - Anticipate continuing home medications of venlafaxine 150 mg daily and trazodone 50 mg QHS once patient is able to tolerate oral intake. (12) DVT prophylaxis Current visit: No Status: Acute - SCDs. History of Present Illness Chief complaint: GI bleed HPI: Mr. Oro is a 68 year old male with a history of cirrhosis, COPD, diabetes, GERD, GI bleed, hepatitis, hypertension, hyperlipidemia, arthritis, and osteoporosis. He presented to the emergency department today due to concerns for GI bleed. Patient was taken emergently to the to the operating room from the ED to undergo endoscopy; therefore, history of present illness was obtained via review of emergency department records. Patient has repeatedly been having several days of intractable nausea and vomiting, with production of dark, coffee-ground appearing emesis. Patient reportedly has had similar events in the past, and reportedly his last endoscopy to have been performed several years ago. Patient has had lightheadedness and likely loss of consciousness over the last few days, as he reported feeling lightheaded anytime he stood up. Patient does have a history of alcohol abuse, consuming approximately 24 beers a day, as well as a half a fifth of vodka. His last drink was reportedly 4-5 days ago due to the aforementioned nausea and vomiting. In the emergency chronic, patient reportedly began to show symptoms of alcohol withdrawal, requiring administration of multiple doses of valium. Patient was initially started on Ativan for withdrawal; however, he reportedly did not tolerate this, and became more agitated. Initial vital signs obtained in the emergency department were as follows: Temperature 98.6, heart rate 1:15, respiratory rate 26, BP 135/66, and 100% oxygen saturation. Laboratory studies were significant for a WBC 22.5, hemoglobin 6.3, hematocrit 18.8, PT 17.1, creatinine 1.56, glucose 370, calcium 7.5, AST 47, ammonia 56, troponin 0.07, and positive stool occult. Past Med Surg Social Fam HX - Past Medical History Medical history: arthritis, cirrhosis, COPD, diabetes, GERD, GI bleed, hepatitis, hyperlipidemia, hypertension, kidney stones, liver disease, osteoporosis, other Additional medical history: basal cellcsacinoma right preauricular MOHS,skin cancer,depression/anxiety,cirrhosis,hepatitis C Psychiatric history: anxiety, bipolar, depression, PTSD, other - Past Surgical History Surgical History: other Additional surgical history: septoplasty/bilateral inferior turbinate,reductions/lesion removed from uvula and right tonsil fossa - Social History Smoking Status: Current every day smoker Smokeless Tobacco Status: No Alcohol use: heavy Drug use: prescription drug abuse - Family History Mother Living Status: Medications and Allergies Aspirin 81 mg PO DAILY 01/06/16 [History] Cholecalciferol (D-3) [Vitamin D] 3,000 unit PO DAILY 12/09/16 [History] Multivit-Min/FA/Lycopen/Lutein [A Thru Z Select Multivit Tab] 1 tab PO DAILY 12/09/16 [History] Oxycodone HCl [Oxaydo] 5 mg PO BID PRN 12/09/16 [History] traZODone [TraZODone] 50 mg PO HS PRN 12/09/16 [History] Insulin Glargine [Lantus] 35 unit SQ DAILY 09/10/18 [History] Lactulose [Enulose] 30 gm PO TID 09/10/18 [History] Losartan [Cozaar] 25 mg PO DAILY 09/10/18 [History] Morphine Sulfate [Arymo ER] 30 mg PO Q12H 09/10/18 [History] Naproxen [EC-Naprosyn] 500 mg PO BID 09/10/18 [History] Venlafaxine XR (24 HR) [Effexor XR] 150 mg PO DAILY 09/10/18 [History] Allergy/AdvReac Type Severity Reaction Status Date / Time sertraline [From Zoloft] Allergy Nausea Verified 04/08/18 14:04 ROS unobtainable: due to mental status All Systems: The remainder of the systems were reviewed and are negative Physical Examination Vital Signs: Vital Signs, Last 4 Hours Temp Pulse Resp BP Pulse Ox 09/10/18 15:27 113 18 124/57 100 09/10/18 14:15 112 26 130/70 100 09/10/18 13:06 98.7 F 113 20 137/83 98 09/10/18 12:51 98.4 F 112 22 146/66 98 09/10/18 12:28 71 16 118/72 98 09/10/18 11:54 118 20 115/70 100 09/10/18 11:53 100 General appearance: no acute distress, other (sedated) ENT: oropharynx moist Effort: other (mechanical ventilation) Inspection: normal Auscultation: bilateral: clear Cardiovascular: regular rate and rhythm Gastrointestinal: soft, non-distended Integumentary: normal Extremities: no cyanosis, no edema, no clubbing Musculoskeletal: no deformities unable to assess due to mental status (sedated) Results - Laboratory Findings CBC and BMP: 09/10/18 11:19 09/10/18 11:19 PT/INR, D-dimer PT 17.1 Seconds (9.4-12.1) H 09/10/18 11:19 Abnormal lab findings: Abnormal lab results WBC 22.5 K/mcL (4.3-11.1) H 09/10/18 11:19 RBC 1.81 M/mcL (4.19-5.50) L 09/10/18 11:19 Hgb 6.3 g/dL (12.9-16.9) L 09/10/18 11:19 Hct 18.8 % (37.5-50.1) L 09/10/18 11:19 MCV 103.9 fL (83.0-100.0) H 09/10/18 11:19 MCH 34.8 pg (28.0-33.3) H 09/10/18 11:19 MPV 12.8 fL (9.4-12.4) H 09/10/18 11:19 17.7 K/mcL (1.6-8.9) H 09/10/18 11:19 2.1 K/mcL (0.0-1.3) H 09/10/18 11:19 Nucleated RBCs/100 WBC 2.7 /100 WBC (0) H 09/10/18 11:19 PT 17.1 Seconds (9.4-12.1) H 09/10/18 11:19 APTT 23.5 Seconds (26.0-36.0) L 09/10/18 11:19 Chloride 110 mEq/L (98-107) H 09/10/18 11:19 Carbon Dioxide 14 mEq/L (23-29) L 09/10/18 11:19 BUN 66 mg/dL (8-23) H 09/10/18 11:19 1.56 mg/dL (0.70-1.30) H 09/10/18 11:19 Est GFR ( Amer) 54 (> 60) L 09/10/18 11:19 Est GFR (Non-Af Amer) 44 (> 60) L 09/10/18 11:19 42 (6-26) H 09/10/18 11:19 Glucose 370 mg/dL (70-105) H 09/10/18 11:19 320 (280-300) H 09/10/18 11:19 Calcium 7.5 mg/dL (8.6-10.3) L 05/09/19 11:19 AST 47 Units/L (13-39) H 09/10/18 11:19 56 mcmol/L (16-53) H 09/10/18 11:19 0.07 ng/mL (< 0.04) H* 09/10/18 11:19 4.4 g/dL (6.4-8.9) L 09/10/18 11:19 2.7 g/dL (3.5-5.7) L 09/10/18 11:19 1.7 g/dL (2.4-3.5) L 09/10/18 11:19 Stool Occult Bld Scrn Positive (Negative) A 09/10/18 11:33 Crossmatch See Detail 09/10/18 11:19 <Angeli Guaman M - Last Filed: 09/10/18 21:29> Date of Encounter: 09/10/18 History of Present Illness HPI: Mr. Oro is a 68 year old male All Systems: The remainder of the systems were reviewed and are negative Physical Examination Vital Signs: Vital Signs, Last 4 Hours Temp Pulse Resp BP Pulse Ox 09/10/18 18:52 24 121/61 100 09/10/18 18:35 98.7 F 104 19 114/54 100 09/10/18 17:55 98.3 F 101 16 121/61 100 09/10/18 17:40 104 16 147/72 100 09/10/18 17:25 100.5 F H 102 16 124/65 100 09/10/18 17:15 98.4 F 103 22 114/54 100 09/10/18 17:05 102 16 103/57 100 09/10/18 16:55 109 16 91/53 100 09/10/18 16:45 100.8 F H 126 17 188/88 100 09/10/18 15:45 110 20 132/65 99 09/10/18 15:42 98.1 F 110 22 132/65 98 Results - Laboratory Findings CBC and BMP: 09/10/18 11:19 09/10/18 11:19 PT/INR, D-dimer PT 17.1 Seconds (9.4-12.1) H 09/10/18 11:19 Abnormal lab findings: Abnormal lab results WBC 22.5 K/mcL (4.3-11.1) H 09/10/18 11:19 RBC 1.81 M/mcL (4.19-5.50) L 09/10/18 11:19 Hgb 6.3 g/dL (12.9-16.9) L 09/10/18 11:19 Hct 18.8 % (37.5-50.1) L 09/10/18 11:19 MCV 103.9 fL (83.0-100.0) H 09/10/18 11:19 MCH 34.8 pg (28.0-33.3) H 09/10/18 11:19 MPV 12.8 fL (9.4-12.4) H 09/10/18 11:19 17.7 K/mcL (1.6-8.9) H 09/10/18 11:19 2.1 K/mcL (0.0-1.3) H 09/10/18 11:19 Nucleated RBCs/100 WBC 2.7 /100 WBC (0) H 09/10/18 11:19 PT 17.1 Seconds (9.4-12.1) H 09/10/18 11:19 APTT 23.5 Seconds (26.0-36.0) L 09/10/18 11:19 Chloride 110 mEq/L (98-107) H 09/10/18 11:19 Carbon Dioxide 14 mEq/L (23-29) L 09/10/18 11:19 BUN 66 mg/dL (8-23) H 09/10/18 11:19 1.56 mg/dL (0.70-1.30) H 09/10/18 11:19 Est GFR ( Amer) 54 (> 60) L 09/10/18 11:19 Est GFR (Non-Af Amer) 44 (> 60) L 09/10/18 11:19 42 (6-26) H 09/10/18 11:19 Glucose 370 mg/dL (70-105) H 09/10/18 11:19 POC Glucose 322 mg/dL (70-99) H 09/10/18 18:41 320 (280-300) H 09/10/18 11:19 Calcium 7.5 mg/dL (8.6-10.3) L 09/10/18 11:19 AST 47 Units/L (13-39) H 09/10/18 11:19 56 mcmol/L (16-53) H 09/10/18 11:19 0.07 ng/mL (< 0.04) H* 09/10/18 11:19 4.4 g/dL (6.4-8.9) L 09/10/18 11:19 2.7 g/dL (3.5-5.7) L 09/10/18 11:19 1.7 g/dL (2.4-3.5) L 09/10/18 11:19 Stool Occult Bld Scrn Positive (Negative) A 09/10/18 11:33 Crossmatch See Detail 09/10/18 11:19 - Attending Attestation I examined this patient and my medical decision-making was reviewed with the Resident Physician. I agree with the documented findings, disposition and treatment plan as described except to the extent set forth below. Patient seen and examined. I was called by ER physician to see this patient because of his significant GI bleed and he has alcohol withdrawal and patient was seen and examined in the ER. Labs, radiology, chart personally reviewed. 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 He has received sedatives for his significant alcohol abuse and he is going to the procedure and to remain intubated, he will be on IV sedation Pulmonary: Acceptable oxygenation and ventilation and to keep him intubated Cardiovascular: tachycardia is secondary to blood loss and GI: Nutrition per dietary and GI prophylaxis per routine. I was told by ER physician endoscopy to be done tomorrow, but advised this need to be done urgently because of the significant blood loss and GI was contacted. Heme: DVT prophylaxis per routine. Significant blood loss anemia and most likely this is upper GI from suspect esophageal varices or peptic ulcer. Patient receiving PRBC. ID: Continue antibiotics and plan to de-escalation Renal; urine out put and renal funtion reviewed Endorcine: blood glucose is monitored Lines: all lines checked and no evidence of infections Skin: skin care to prevent pressure ulcers per nursing routine care I spent 45 min of Critical Care time with this patient. It involved decision m aking of high complexity to assess, manipulate, and support vital organ system failure and/or to prevent further life threatening deterioration of the patient's condition. The time involved in the performance of separately reportable procedures was not counted toward critical care time.
[2018-09-10] MEDS ORDERED: *HR* Dextrose 50 % in Water (Syg) 50 ML SYRINGE IVP PRN ×2 (15:52→19:10)
[2018-09-10] MEDS ORDERED: D5% in Water 1,000 ML IVC PRN ×2 (15:52→19:10)
[2018-09-10] MEDS ORDERED: Naloxone 0.4 MG/ML INJ IVP PRN ×3 (15:52→19:10)
[2018-09-10] MEDS ORDERED: Dextrose Gel 15 GM/37.5 ML TUBE PO PRN ×4 (15:52→19:10)
[2018-09-10] MEDS ORDERED: *HR* Promethazine 25 MG/ML VIAL IVP PRN (15:52)
--- NOTE | 2018-09-10 15:53 | Gastroenterology Consult Note ---
<Jean Carlos Lazaro - Last Filed: 09/11/18 08:45> Date of Encounter: 09/11/18 Time of Encounter: 15:30 - Time Spent With Patient Total time spent is greater than 50% in coordination of care (as documented) at patient's floor/unit and/or counseling patient: GI History of Present Illness - Data of Consult Patient: known to practice within the last 3 years Consult date: 09/10/18 - Consult Narrative Reason for consult: upper GI bleed History of present illness: Mr. Oro is a 68 year old male with PMHx cirrhosis, esophageal varices, alcohol abuse, who presented to the ED with 4-5 days of coffee-ground emesis, becca tarry stools. Information obtained from medical record and patient friend Francisco Javier. The patient normally drinks 24 cans of beer and half to a full bottle of vodka daily, but had not done this in the past 4 days. He complained of abdominal pain on arrival to the ED as well as scrotal pain. Patient's friend Francisco Javier stated the patient had refused coming to the hospital for the past 4-5 days even though he was complaining of vomiting blood, urinating blood, and having bloody bowel movements. Hgb 6.3 with platelets [address] A/P with no acute findings, cirrhosis with enlarged gastric and retroperitoneal v arices. Procedures: EGD 02/13/2017 Dr. Sweet: Type I isolated gastric varices without bleeding, granular mucosa in the duodenal bulb-biopsies. NSAIDs: Naproxen, ASA Anticoagulation: None A/P 1. Upper GI Bleed: Continue Octreotide and Protonix drips. Hgb 6.3 on admission. Continue to monitor CBC and transfuse PRBC as needed. Recommend 3 units PRBC now. Plan for EGD emergently in the OR to r/o esophagitis, gastritis, duodenitis, PUD, MW tear, varices, or AVM. 2. Anemia: Secondary to upper GI bleed. Hgb 6.3 on admission. Continue to monitor CBC and transfuse PRBC as needed. Recommend 3 units PRBC now. Plan for EGD emergently in the OR to r/o esophagitis, gastritis, duodenitis, PUD, MW tear, varices, or AVM. 3. Cirrhosis: MELD-Na 16, Child-Carpio class C, DF 29.1. AFP 6 on 02/13/2017. Check AFP and RUQ US to r/o HCC. Recommend 2-4 BMs daily, use Lactulose PRN. Lifestyle Changes: 1. Total abstinence from alcohol including social drinking. 2. No smoking. 3. Gradual loss of weight. 4. Drink at least 3 cups of coffee due to its antioxidant effects in the liver, it reduces risk of HCC and advance fibrosis. 5. If needed, use less than 2 g/day of Tylenol (in divided doses). 6. Vaccination for Hep A, B, Pneumococcus if not already received and yearly influenza vaccination by PCP. 7. Avoid NSAIDS as can cause kidney damage. 8. Avoid benzodiazepines and other sedatives such as anti-histamines, narcotics etc. as can cause encephalopathy or confusion. 9. Take a late carbohydrate meal supplement as it reduces glucose production from protein breakdown and thus improves nutrition. 10. In cirrhosis, statins are safe to use and also improve portal hypertension and decrease risk of HCC. 11. Screening: Hepatocellular cancer screening: US of liver and AFP every 6 months. Past Med Surg Social Fam HX - Past Medical History Medical history: arthritis, cirrhosis, COPD, diabetes, GERD, GI bleed, hepatitis, hyperlipidemia, hypertension, kidney stones, liver disease, osteoporosis, other Additional medical history: basal cellcsacinoma right preauricular MOHS,skin cancer,depression/anxiety,cirrhosis,hepatitis C Psychiatric history: anxiety, bipolar, depression, PTSD, other - Past Surgical History Surgical History: other Additional surgical history: septoplasty/bilateral inferior turbinate,reductions/lesion removed from uvula and right tonsil fossa - Social History Smoking Status: Current every day smoker Smokeless Tobacco Status: No Alcohol use: heavy Drug use: prescription drug abuse - Family History Mother Living Status: ROS unobtainable: due to mental status - Constitutional Vitals: Temp Pulse Resp BP Pulse Ox 98.7 F 113 18 124/57 100 09/10/18 13:06 09/10/18 15:27 09/10/18 15:27 09/10/18 15:27 09/10/18 15:27 Exam: sedated - Head Head exam: Present: atraumatic, normocephalic - Eye Eye exam: Present: normal appearance, sclera anicteric - ENT ENT exam: Present: mucous membranes moist - Neck Neck exam general surgery: Present: normal inspection, trachea midline - Respiratory Respiratory exam: Present: CTAB. Absent: rales, rhonchi - Cardiovascular Cardiovascular exam: Present: RRR, +S1, +S2 - GI/Abdominal GI/Abdominal exam: Present: distended, soft, tenderness, no peritoneal signs. Absent: firm, guarding - Rectal Rectal exam: Present: deferred - Extremities Exam Extremities exam: Present: warm - Neurological Exam Additional comments: sedated - Skin Skin exam: Present: dry, intact, normal color, warm Results - Labs CBC & Chem 7: 09/11/18 06:39 09/11/18 06:07 Labs: Last Result 09/10/18 11:19 Calcium 7.5 L Troponin I 0.07 H* Entire Visit 09/10/18 09/10/18 09/10/18 11:19 11:19 11:19 Hgb 6.3 L Hct 18.8 L PT 17.1 H Total Bilirubin 1.0 AST 47 H ALT 37 Ammonia Lipase 48 09/10/18 11:19 Hgb Hct PT Total Bilirubin AST ALT Ammonia 56 H Lipase - ABG ABG results: PT/INR, D-dimer PT 17.1 Seconds (9.4-12.1) H 09/10/18 11:19 - Impressions Impressions Abdomen/Pelvis CT 09/10/18 11:54 IMPRESSION: 1. No acute findings within the abdomen or pelvis to explain the patient's pain. No evidence of obstructive uropathy or appendicitis. Diverticulosis with no acute features. 2. Cirrhosis with enlarged gastric and retroperitoneal varices. No splenomegaly or ascites. 3. Nonobstructive right-sided nephrolithiasis. D/ / 09/10/2018 14:00:52 Franco Gauthier MD / [facility] Interpreting Provider: Franco Gauthier MD Head CT 09/10/18 11:54 IMPRESSION: No acute intracranial abnormality. D/ / Devon Stevens MD / Devon Stevens MD Interpreting Provider: Devon Stevens MD Consult Discharge Plan - Plan [facility]errals: [facility] [Primary Care Provider[facility] - <Mirza Dale - Last Filed: 09/14/18 05:37> Date of Encounter: 09/10/18 - Time Spent With Patient Total time spent is greater than 50% in coordination of care (as documented) at patient's floor/unit and/or counseling patient: GI History of Present Illness - Data of Consult Requesting Physician: Angeli Guaman MD - Consult Narrative History of present illness: Mr. Oro is a 68 year old male - Constitutional Vitals: Temp Pulse Resp BP Pulse Ox 97.6 F 71 14 94/59 88 09/14/18 05:00 09/14/18 05:00 09/14/18 05:00 09/14/18 05:00 09/14/18 05:00 Results - Labs CBC & Chem 7: 09/14/18 03:04 09/14/18 03:04 Labs: Last Result 09/14/18 03:04 Calcium 6.8 L Entire Visit 09/14/18 09/14/18 03:04 03:04 Hgb 9.1 L D Hct 27.6 L Total Bilirubin 4.2 H AST 112 H ALT 112 H - ABG ABG results: ABG ABG pH 7.25 pH Units (7.32-7.45) L 09/14/18 05:15 ABG pCO2 41 mmHg (35-45) 09/14/18 05:15 ABG pO2 58 mmHg (85-104) L 09/14/18 05:15 ABG O2 Saturation 85 % (95-98) L 09/14/18 05:15 PT/INR, D-dimer PT 15.4 Seconds (9.4-12.1) H 09/11/18 05:18 - Impressions Impressions Chest X-Ray 09/13/18 04:00 IMPRESSION: Appropriate endotracheal tube positioning. Left lung atelectasis. D/ / Doe Su / Doe Su Interpreting Provider: Doe Su - Attending Attestation I have personally performed a face to face evaluation on this patient. I have reviewed and agree with the care plan. History and Exam by me shows:
[2018-09-10] MEDS ORDERED: *HR* Etomidate 40 MG/20 ML VIAL IVP ONE (15:58)
[2018-09-10] MEDS ORDERED: *HR* Magnesium Sulfate 1 GM/2 ML VIAL ONE (16:09)
[2018-09-10] MEDS ORDERED: 0.9 % Sodium Chloride 1,000 ML IVC SCH (16:15)
[2018-09-10] MEDS ORDERED: *HR* PHENYLEPHRINE 1,000 MCG/10 ML SYRINGE IVP ONE (16:15)
--- NOTE | 2018-09-10 16:40 | Electrocardiograph Report ---
[place] [id number] Test Date: 2018-09-10 Pat Name: Lito Oro Department: EXAM10 Room: [facility] Gender: M Psychiatric Mental Health Nurse: : 1950 Requested By: Lacey Reddy Order Number: [id number] Reading MD: Hayder Rosales Measurements Intervals [place] Rate: 114 P: 46 AR: 165 QRS: -16 QRSD: 105 T: 161 QT: 346 QTc: 477 Interpretive Statements Sinus tachycardia Intraventricular conduction delay Electronically Signed On 09-10-2018 16:39:07 EDT by Hayder Rosales
[2018-09-10] MEDS ORDERED: 0.9 % Sodium Chloride 500 ML ONE (16:47)
[2018-09-10] MEDS ORDERED: Propofol 500 MG/50 ML INFUS..BTL ONE (16:55)
--- NOTE | 2018-09-10 17:19 | Anesthesia Evaluation Post Op ---
Date of Encounter: 09/10/18 Time of Encounter: 17:17 - Vital Signs Vital Signs: Vital Signs/O2 Sat/Glucose, Most Current Temp Pulse Resp BP Pulse Ox 09/10/18 16:45 100.8 F H 126 16 188/88 100 09/10/18 15:45 110 20 132/65 99 09/10/18 15:42 98.1 F 110 22 132/65 98 09/10/18 15:27 113 18 124/57 100 09/10/18 14:15 112 26 130/70 100 - Lungs Lungs: Clear Ascult./Percussion - Airway Airway: Intubated (Intubated in PACU awaiting ICU bed) - Cardiovascular Baseline Rhythm - Mental Status Mental Status: Sedated - Pain Pain Scale used: Unable to assess - Nausea Vomiting Nausea Vomiting: Not Present - Hydration Hydration: NPO - Discharge PostOp Status: Transfer Patient to floor Anes Supervising Prov Stmt: PT VSS in PACU awaiting ICU disposition. - MD Kurt
[2018-09-10] MEDS ORDERED: Dexmedetomidine HCl 400 MCG/100 ML MLS IVC SCH (17:45)
[2018-09-10] MEDS ORDERED: Insulin LISPRO 300 UNITS/3 ML VIAL SQ SCH (18:00)
[2018-09-10] MEDS ORDERED: Artificial Tears SOLN 15 ML BOTTLE BOTH EYES PRN ×2 (18:07→19:10)
--- NOTE | 2018-09-10 18:22 | Anesthesia Evaluation Post Op ---
Date of Encounter: 09/10/18 Time of Encounter: 18:19 - Vital Signs Vital Signs: Vital Signs/O2 Sat/Glucose, Most Recent Temp Pulse Resp BP Pulse Ox 98.3 F 101 16 121/61 100 09/10/18 17:55 09/10/18 17:55 09/10/18 17:55 09/10/18 17:55 09/10/18 17:55 Blood Glucose* 300 - Lungs Lungs: Clear Ascult./Percussion (on vent, no new changes since adm to PACU) - Airway Airway: Intubated - Cardiovascular Regular Rate - Mental Status Mental Status: Sedated - Pain Pain Scale used: Unable to assess - Nausea Vomiting Nausea Vomiting: Unable to assess - Hydration Hydration: NPO, Rivera catheter Notes: 09/10/18 18:21 VS stable, rec'ing 2nd unit of blood - Discharge PostOp Status: Transfer Patient to floor (ICU 7)
[2018-09-10] MEDS: FentaNYL (PF) 1,000 MCG in 0.9 % Sodium Chloride 80 ML IVC SCH (19:55)
[2018-09-10] MEDS: Dexmedetomidine HCl 400 MCG/100 ML MLS IVC SCH (19:56)
[2018-09-10] MEDS: 0.9 % Sodium Chloride 1,000 ML IVC SCH (19:57)
[2018-09-10] MEDS: Chlorhexidine Rinse 15 ML MOUTHWASH MM SCH (19:58)
[2018-09-10] MEDS: Artificial Tears SOLN 15 ML BOTTLE BOTH EYES SCH ×2 (19:58→23:53)
[2018-09-10] MEDS: Pantoprazole 40 MG in 0.9 % Sodium Chloride Mini Bag 100 ML IVC SCH ×2 (19:59→23:35)
[2018-09-10] MEDS ORDERED: Artificial Tears SOLN 15 ML BOTTLE BOTH EYES SCH (20:00)
[2018-09-10] MEDS: Insulin LISPRO 300 UNITS/3 ML VIAL SQ SCH ×2 (20:03→23:53)
[2018-09-10] MEDS: Octreotide 400 MCG in 0.9 % Sodium Chloride 100 ML IVC SCH (20:24)
[2018-09-10] MEDS ORDERED: Chlorhexidine Rinse 15 ML MOUTHWASH MM SCH (21:00)
[2018-09-10] MEDS ORDERED: Piperacillin/Tazobactam 3.375 GM in 0.9 % Sodium Chloride Mini Bag 100 ML IVPB SCH (21:00)
[2018-09-10] MEDS: Piperacillin/Tazobactam 3.375 GM in 0.9 % Sodium Chloride Mini Bag 100 ML IVPB SCH (23:35)
[2018-09-11 00:04] LABS: Hematocrit 22.9 % (37.5-50.1); Hemoglobin 7.7 g/dL (12.9-16.9)
[2018-09-11] MEDS: Octreotide 400 MCG in 0.9 % Sodium Chloride 100 ML IVC SCH (01:38)
[2018-09-11] MEDS: FentaNYL (PF) 1,000 MCG in 0.9 % Sodium Chloride 80 ML IVC SCH (04:46)
[2018-09-11] MEDS: Artificial Tears SOLN 15 ML BOTTLE BOTH EYES SCH ×6 (04:47→23:26)
[2018-09-11] MEDS: Insulin LISPRO 300 UNITS/3 ML VIAL SQ SCH ×6 (04:47→23:25)
[2018-09-11] MEDS: 0.9 % Sodium Chloride 1,000 ML IVC SCH (04:49)
[2018-09-11 05:25] LABS: ABG Base Excess -5 mEq/L (-2 to 3); ABG HCO3 20 mEq/L (21-27); ABG Oxygen Saturation 100 % (95-98); ABG PCO2 41 mmHg (35-45); ABG PH 7.31 pH Units (7.32-7.45); ABG PO2 199 mmHg (85-104); ABG TCO2 22 mEq/L (20-26); Blood Gas Modality PRVC; Blood Gas PEEP 5 cm H2O; Blood Gas Respiration Rate 16; Blood Gas VT 450 cc
[2018-09-11 05:52] LABS: INR 1.4; Prothrombin Time 15.4 Seconds (9.4-12.1)
[2018-09-11 06:06] LABS: Activated Partial Thrombo Time 24.1 Seconds (26.0-36.0)
[2018-09-11 06:40] LABS: Albumin 2.8 g/dL (3.5-5.7); Albumin/Globulin Ratio 1.6 (1.1-2.2); Bilirubin,Total 1.5 mg/dL (0.3-1.0); Calcium 7.7 mg/dL (8.6-10.3); Globulin 1.7 g/dL (2.4-3.5); Magnesium 2.6 mg/dL (1.6-2.6); Phosphorous 3.8 mg/dL (2.7-4.5); Potassium 5.7 mEq/L (3.5-5.1); Total Protein 4.5 g/dL (6.4-8.9)
[2018-09-11 06:50] LABS: Basophils # 0.1 K/mcL (0.0-0.2); Basophils % 0.3 %; Hematocrit 25.9 % (37.5-50.1); Hemoglobin 8.6 g/dL (12.9-16.9); Immature Granulocytes % 3.2 % (0-4); Immature Platelets 10.3 % (1.1-6.1); Lymphocytes # 2.1 K/mcL (0.6-4.6); Lymphocytes % 8.8 %; Mean Corpuscular HGB Conc 33.2 g/dL (31.6-35.5); Mean Corpuscular Volume 99.2 fL (83.0-100.0); Mean Platelet Volume 12.7 fL (9.4-12.4); Monocytes % 8.6 %; Neutrophils # 18.7 K/mcL (1.6-8.9); Nucleated Red Blood Cells 10.6 /100 WBC (0); Platelet Count 116 K/mcL (140-400); Red Blood Count 2.61 M/mcL (4.19-5.50); Red Cell Distribution Width 15.9 % (11.5-14.5); Segmented Neutrophils % 79.1 %
--- NOTE | 2018-09-11 06:54 | Pulmonology Progress Note ---
<JanieMiguel Tono - Last Filed: 09/11/18 16:29> Date of Encounter: 09/11/18 Time of Encounter: 06:54 Assessment and Plan (1) Upper gastrointestinal hemorrhage Current Visit: Yes Status: Acute -Presented with multiple episodes of melena and coffee-ground emesis -Hgb 6.3 on arrival -Received total 3 units PRBC -EGD 09/10/18: Large fresh clot seen in fundus along with old blood. No active bleeding -EGD 09/11/18: Again demonstrated large clot in fundus with suspicion bleeding source under fundal clot -Hgb 8.6 today with repeat 8 -Will remain intubated and sedated with GI plan to repeat EGD Friday -Continue to trend H&H and transfuse when indicated -Stop octreotide -Continue PPI (2) SPIKE (acute kidney injury) Current Visit: Yes Status: Acute -Likely 2/2 hypovolemia -Cr 1.56 on arrival -Cr 1.81 today -Continue IVF, avoid nephrotoxins and trend renal function (3) Alcohol abuse Current Visit: No Status: Acute -Extensive alcohol hx -CIWA with ativan caused further agitation in ED -Continue precedex, banana bag (4) Cirrhosis Current Visit: No Status: Chronic -Hx of cirrhosis 2/2 alcohol abuse -CT abd/plv 09/10/18 with large gastric and retroperitoneal varicies -MELD-Na 16, DF 29 -Ammonia 56 -GI following Qualifiers: Hepatic cirrhosis type: alcoholic cirrhosis Ascites presence: unspecified Qualified Code(s): K70.30 - Alcoholic cirrhosis of liver without ascites (5) DM (diabetes mellitus), type 2 Current Visit: No Status: Chronic -SSI and accucheks Qualifiers: Diabetes mellitus intermediate accountant insulin use: without penitentiary use Diabetes mellitus complication status: without complication Qualified Code(s): E11.9 - Type 2 diabetes mellitus without complications (6) Leukocytosis Current Visit: Yes Status: Acute -Likely reactive as no other signs of infection Qualifiers: Leukocytosis type: unspecified Qualified Code(s): D72.829 - Elevated white blood cell count, unspecified (7) DVT prophylaxis Current Visit: No Status: Acute -SCDs Subjective Principal diagnosis: UGI bleed Interval history: No acute events overnight. Remains intubated and sedated Objective PUL Vital signs: Last Vital Signs Temp 98.7 F 09/11/18 04:00 Pulse 82 09/11/18 06:00 Resp 18 09/11/18 06:00 BP 99/61 09/11/18 06:00 Pulse Ox 100 09/11/18 06:00 General appearance: no acute distress, other (Intubated and sedated ) Eyes: nonicteric ENT: oropharynx dry Effort: other (on vent) Auscultation: bilateral: clear (on vent) Cardiovascular: regular rate and rhythm Gastrointestinal: hypoactive bowel sounds, soft, non-tender, non-distended Extremities: no cyanosis, no edema other (sedated) other (sedated) Ventilator Settings Ventilator Settings: Ventilator Settings, Last 8 Hours Ventilator Tidal Volume 450 Setting Ventilator Tidal Volume 450 Setting Ventilator Tidal Volume 450 Setting Ventilator Tidal Volume 450 Setting Ventilator Tidal Volume 450 Setting Ventilator Tidal Volume 450 Setting Ventilator Tidal Volume 450 Setting Ventilator Tidal Volume 450 Setting Ventilator Tidal Volume 450 Setting Ventilator Tidal Volume 450 Setting Ventilator Tidal Volume 450 Setting Ventilator Tidal Volume 450 Setting Ventilator Respiratory Rate 16 Setting Ventilator Respiratory Rate 16 Setting Ventilator Respiratory Rate 16 Setting Ventilator Respiratory Rate 16 Setting Ventilator Respiratory Rate 16 Setting Ventilator Respiratory Rate 16 Setting Ventilator Respiratory Rate 16 Setting Ventilator Respiratory Rate 16 Setting Ventilator Respiratory Rate 16 Setting Ventilator Respiratory Rate 16 Setting Ventilator Respiratory Rate 16 Setting Ventilator Respiratory Rate 16 Setting Actual Respiratory Rate 20 Actual Respiratory Rate 18 Actual Respiratory Rate 20 Actual Respiratory Rate 20 Actual Respiratory Rate 19 Actual Respiratory Rate 19 Actual Respiratory Rate 19 Actual Respiratory Rate 16 Actual Respiratory Rate 16 Actual Respiratory Rate 17 Positive End Expiratory 5 Pressure Positive End Expiratory 5 Pressure Positive End Expiratory 5 Pressure Positive End Expiratory 5 Pressure Positive End Expiratory 5 Pressure Positive End Expiratory 5 Pressure Positive End Expiratory 5 Pressure Positive End Expiratory 5 Pressure Positive End Expiratory 5 Pressure Positive End Expiratory 5 Pressure Positive End Expiratory 5 Pressure Positive End Expiratory 5 Pressure Peak Inspiratory Airway 26 Pressure Peak Inspiratory Airway 26 Pressure Peak Inspiratory Airway 24 Pressure Peak Inspiratory Airway 24 Pressure Peak Inspiratory Airway 24 Pressure Peak Inspiratory Airway 24 Pressure Peak Inspiratory Airway 24 Pressure Peak Inspiratory Airway 24 Pressure Peak Inspiratory Airway 24 Pressure Peak Inspiratory Airway 22 Pressure Results - Laboratory Findings CBC and BMP: 09/11/18 13:54 09/11/18 06:07 ABG ABG pH 7.31 pH Units (7.32-7.45) L 09/11/18 05:21 ABG pCO2 41 mmHg (35-45) 09/11/18 05:21 ABG pO2 199 mmHg (85-104) H 09/11/18 05:21 ABG O2 Saturation 100 % (95-98) H 09/11/18 05:21 PT/INR, D-dimer PT 15.4 Seconds (9.4-12.1) H 09/11/18 05:18 Abnormal lab findings: Abnormal lab results WBC 23.6 K/mcL (4.3-11.1) H 09/11/18 06:39 RBC 2.61 M/mcL (4.19-5.50) L 09/11/18 06:39 Hgb 8.6 g/dL (12.9-16.9) L 09/11/18 06:39 Hct 25.9 % (37.5-50.1) L 09/11/18 06:39 MCV 103.9 fL (83.0-100.0) H 09/10/18 11:19 MCH 34.8 pg (28.0-33.3) H 09/10/18 11:19 RDW 15.9 % (11.5-14.5) H 09/11/18 06:39 Plt Count 116 K/mcL (140-400) L 09/11/18 06:39 MPV 12.7 fL (9.4-12.4) H 09/11/18 06:39 18.7 K/mcL (1.6-8.9) H 09/11/18 06:39 2.0 K/mcL (0.0-1.3) H 09/11/18 06:39 Nucleated RBCs/100 WBC 10.6 /100 WBC (0) H 09/11/18 06:39 Immature Plt Fraction 10.3 % (1.1-6.1) H 09/11/18 06:39 PT 15.4 Seconds (9.4-12.1) H 09/11/18 05:18 APTT 24.1 Seconds (26.0-36.0) L 09/11/18 05:18 ABG pH 7.31 pH Units (7.32-7.45) L 09/11/18 05:21 ABG pO2 199 mmHg (85-104) H 09/11/18 05:21 ABG HCO3 20 mEq/L (21-27) L 09/11/18 05:21 ABG O2 Saturation 100 % (95-98) H 09/11/18 05:21 ABG Base Excess -5 mEq/L (-2 to 3) L 09/11/18 05:21 Potassium 5.7 mEq/L (3.5-5.1) H D 09/11/18 06:07 Chloride 116 mEq/L (98-107) H 09/11/18 06:07 Carbon Dioxide 20 mEq/L (23-29) L 09/11/18 06:07 BUN 70 mg/dL (8-23) H 09/11/18 06:07 1.81 mg/dL (0.70-1.30) H 09/11/18 06:07 Est GFR ( Amer) 45 (> 60) L 09/11/18 06:07 Est GFR (Non-Af Amer) 37 (> 60) L 09/11/18 06:07 39 (6-26) H 09/11/18 06:07 Glucose 209 mg/dL (70-105) H 09/11/18 06:07 POC Glucose 239 mg/dL (70-99) H 09/11/18 04:44 321 (280-300) H 09/11/18 06:07 Calcium 7.7 mg/dL (8.6-10.3) L 09/11/18 06:07 1.5 mg/dL (0.3-1.0) H 09/11/18 06:07 AST 105 Units/L (13-39) H 09/11/18 06:07 ALT 78 Units/L (7-52) H 09/11/18 06:07 56 mcmol/L (16-53) H 09/10/18 11:19 0.09 ng/mL (< 0.04) H* 09/10/18 23:52 4.5 g/dL (6.4-8.9) L 09/11/18 06:07 2.8 g/dL (3.5-5.7) L 09/11/18 06:07 1.7 g/dL (2.4-3.5) L 09/11/18 06:07 Stool Occult Bld Scrn Positive (Negative) A 09/10/18 11:33 Crossmatch See Detail 09/10/18 11:19 - Microbiology Findings Microbiology Findings: Microbiology, Last 48 Hours 09/10/18 12:31 Blood Culture - Preliminary Peripheral Venipuncture Culture is incubating and being continuously monitored for growth. Final report to follow. 09/10/18 12:32 Blood Culture - Preliminary Peripheral Venipuncture Culture is incubating and being continuously mo nitored for growth. Final report to follow. - Clinical Findings Intake & Output: Intake & Output 09/10/18 09/10/18 09/11/18 15:59 23:59 07:59 Intake Total 1370 / 2150 780 / 2150 1304 / 1304 Output Total 550 / 550 200 / 200 Balance 1370 / 1600 230 / 1600 1104 / 1104 Weight 114.714 kg 108 kg Consult Discharge Plan - Plan Referrals: [facility] [Primary Care Provider[facility] - <Angeli Guaman M - Last Filed: 09/11/18 22:41> Date of Encounter: 09/11/18 Objective PUL Vital signs: Last Vital Signs Temp 97.7 F 09/11/18 07:00 Pulse 80 09/11/18 09:00 Resp 17 09/11/18 09:00 BP 95/57 09/11/18 09:00 Pulse Ox 100 09/11/18 09:00 Ventilator Settings Ventilator Settings: Ventilator Settings, Last 8 Hours Ventilator Tidal Volume 500 Setting Ventilator Tidal Volume 500 Setting Ventilator Tidal Volume 500 Setting Ventilator Tidal Volume 450 Setting Ventilator Tidal Volume 450 Setting Ventilator Tidal Volume 450 Setting Ventilator Tidal Volume 450 Setting Ventilator Tidal Volume 450 Setting Ventilator Tidal Volume 450 Setting Ventilator Tidal Volume 450 Setting Ventilator Respiratory Rate 12 Setting Ventilator Respiratory Rate 12 Setting Ventilator Respiratory Rate 12 Setting Ventilator Respiratory Rate 16 Setting Ventilator Respiratory Rate 16 Setting Ventilator Respiratory Rate 16 Setting Ventilator Respiratory Rate 16 Setting Ventilator Respiratory Rate 16 Setting Ventilator Respiratory Rate 16 Setting Ventilator Respiratory Rate 16 Setting Actual Respiratory Rate 18 Actual Respiratory Rate 16 Actual Respiratory Rate 14 Actual Respiratory Rate 20 Actual Respiratory Rate 18 Actual Respiratory Rate 20 Actual Respiratory Rate 20 Actual Respiratory Rate 19 Positive End Expiratory 5 Pressure Positive End Expiratory 5 Pressure Positive End Expiratory 5 Pressure Positive End Expiratory 5 Pressure Positive End Expiratory 5 Pressure Positive End Expiratory 5 Pressure Positive End Expiratory 5 Pressure Positive End Expiratory 5 Pressure Positive End Expiratory 5 Pressure Positive End Expiratory 5 Pressure Peak Inspiratory Airway 26 Pressure Peak Inspiratory Airway 28 Pressure Peak Inspiratory Airway 26 Pressure Peak Inspiratory Airway 26 Pressure Peak Inspiratory Airway 26 Pressure Peak Inspiratory Airway 24 Pressure Peak Inspiratory Airway 24 Pressure Peak Inspiratory Airway 24 Pressure Results - Laboratory Findings CBC and BMP: 09/11/18 13:54 09/11/18 06:07 ABG ABG pH 7.31 pH Units (7.32-7.45) L 09/11/18 05:21 ABG pCO2 41 mmHg (35-45) 09/11/18 05:21 ABG pO2 199 mmHg (85-104) H 09/11/18 05:21 ABG O2 Saturation 100 % (95-98) H 09/11/18 05:21 PT/INR, D-dimer PT 15.4 Seconds (9.4-12.1) H 09/11/18 05:18 Abnormal lab findings: Abnormal lab results WBC 23.6 K/mcL (4.3-11.1) H 09/11/18 06:39 RBC 2.61 M/mcL (4.19-5.50) L 09/11/18 06:39 Hgb 8.6 g/dL (12.9-16.9) L 09/11/18 06:39 Hct 25.9 % (37.5-50.1) L 09/11/18 06:39 MCV 103.9 fL (83.0-100.0) H 09/10/18 11:19 MCH 34.8 pg (28.0-33.3) H 09/10/18 11:19 RDW 15.9 % (11.5-14.5) H 09/11/18 06:39 Plt Count 116 K/mcL (140-400) L 09/11/18 06:39 MPV 12.7 fL (9.4-12.4) H 09/11/18 06:39 18.7 K/mcL (1.6-8.9) H 09/11/18 06:39 2.0 K/mcL (0.0-1.3) H 09/11/18 06:39 Nucleated RBCs/100 WBC 10.6 /100 WBC (0) H 09/11/18 06:39 Immature Plt Fraction 10.3 % (1.1-6.1) H 09/11/18 06:39 PT 15.4 Seconds (9.4-12.1) H 09/11/18 05:18 APTT 24.1 Seconds (26.0-36.0) L 09/11/18 05:18 ABG pH 7.31 pH Units (7.32-7.45) L 09/11/18 05:21 ABG pO2 199 mmHg (85-104) H 09/11/18 05:21 ABG HCO3 20 mEq/L (21-27) L 09/11/18 05:21 ABG O2 Saturation 100 % (95-98) H 09/11/18 05:21 ABG Base Excess -5 mEq/L (-2 to 3) L 09/11/18 05:21 Potassium 5.7 mEq/L (3.5-5.1) H D 09/11/18 06:07 Chloride 116 mEq/L (98-107) H 09/11/18 06:07 Carbon Dioxide 20 mEq/L (23-29) L 09/11/18 06:07 BUN 70 mg/dL (8-23) H 09/11/18 06:07 1.81 mg/dL (0.70-1.30) H 09/11/18 06:07 Est GFR ( Amer) 45 (> 60) L 09/11/18 06:07 Est GFR (Non-Af Amer) 37 (> 60) L 09/11/18 06:07 39 (6-26) H 09/11/18 06:07 Glucose 209 mg/dL (70-105) H 09/11/18 06:07 POC Glucose 160 mg/dL (70-99) H 09/11/18 07:57 321 (280-300) H 09/11/18 06:07 Calcium 7.7 mg/dL (8.6-10.3) L 09/11/18 06:07 1.5 mg/dL (0.3-1.0) H 09/11/18 06:07 AST 105 Units/L (13-39) H 09/11/18 06:07 ALT 78 Units/L (7-52) H 09/11/18 06:07 56 mcmol/L (16-53) H 09/10/18 11:19 0.09 ng/mL (< 0.04) H* 09/10/18 23:52 4.5 g/dL (6.4-8.9) L 09/11/18 06:07 2.8 g/dL (3.5-5.7) L 09/11/18 06:07 1.7 g/dL (2.4-3.5) L 09/11/18 06:07 Stool Occult Bld Scrn Positive (Negative) A 09/10/18 11:33 Crossmatch See Detail 09/10/18 11:19 - Microbiology Findings Microbiology Findings: Microbiology, Last 48 Hours 09/10/18 12:31 Blood Culture - Preliminary Peripheral Venipuncture Culture is incubating and being continuously monitored for growth. Final report to follow. 09/10/18 12:32 Blood Culture - Preliminary Peripheral Venipuncture Culture is incubating and being continuously monitored for growth. Final report to follow. - Clinical Findings Intake & Output: Intake & Output 09/10/18 09/11/18 09/11/18 23:59 07:59 15:59 Intake Total 780 / 2150 1504 / 1504 Output Total 550 / 550 300 / 300 Balance 230 / 1600 1204 / 1204 Weight 108 kg - Attending Attestation I examined this patient and my medical decision-making was reviewed with the Resident Physician. I agree with the documented findings, disposition and treatment plan as described except to the extent set forth below. Patient seen and examined. Labs, radiology, chart personally reviewed. 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 He has significant alcohol abuse and need sedation. Pulmonary: Acceptable oxygenation and ventilation and changed vent setting because of PEEPi and decreased RR with improvement of PEEPi. No plan for extubation for now.until his bleeding is under control. Cardiovascular: stable GI: Nutrition per dietary and GI prophylaxis per routine and patient has EGD and FI is following up. Heme: DVT prophylaxis per routine and monitor H&H. ID: Continue antibiotics and plan to de-escalation Renal; urine out put and renal funtion reviewed Endorcine: blood glucose is monitored Lines: all lines checked and no evidence of infections Skin: skin care to prevent pressure ulcers per nursing routine care I spent 35 min of Critical Care time with this patient. It involved decision making of high complexity to assess, manipulate, and support vital organ system failure and/or to prevent further life threatening deterioration of the patient's condition. The time involved in the performance of separately reportable procedures was not counted toward critical care time.
[2018-09-11] MEDS ORDERED: 0.9 % Sodium Chloride Mini Bag 100 ML ONE (08:05)
[2018-09-11] MEDS: Piperacillin/Tazobactam 3.375 GM in 0.9 % Sodium Chloride Mini Bag 100 ML IVPB SCH ×3 (08:15→23:30)
[2018-09-11] MEDS: Chlorhexidine Rinse 15 ML MOUTHWASH MM SCH ×2 (08:17→21:25)
[2018-09-11] MEDS: Pantoprazole 40 MG in 0.9 % Sodium Chloride Mini Bag 100 ML IVC SCH ×4 (08:20→21:24)
[2018-09-11] MEDS ORDERED: Thiamine (B-1) 100 MG in D5% in Water 50 ML IVPB SCH (09:00)
[2018-09-11] MEDS: Thiamine (B-1) 100 MG in D5% in Water 50 ML IVPB SCH (09:54)
[2018-09-11 14:14] LABS: Hematocrit 24.4 % (37.5-50.1)
[2018-09-11] MEDS: Dexmedetomidine HCl 400 MCG/100 ML MLS IVC SCH (15:03)
[2018-09-11] MEDS: Ipratropium/Albuterol Neb 3 ML IH SCH ×3 (15:41→23:28)
[2018-09-12] MEDS: Pantoprazole 40 MG in 0.9 % Sodium Chloride Mini Bag 100 ML IVC SCH ×4 (01:39→17:26)
[2018-09-12] MEDS: Ipratropium/Albuterol Neb 3 ML IH SCH ×6 (03:23→23:36)
[2018-09-12] MEDS: FentaNYL (PF) 1,000 MCG in 0.9 % Sodium Chloride 80 ML IVC SCH (03:40)
[2018-09-12] MEDS: Artificial Tears SOLN 15 ML BOTTLE BOTH EYES SCH ×5 (03:41→21:56)
[2018-09-12] MEDS: Insulin LISPRO 300 UNITS/3 ML VIAL SQ SCH ×5 (03:41→21:56)
[2018-09-12] MEDS: Dexmedetomidine HCl 400 MCG/100 ML MLS IVC SCH ×2 (03:42→21:57)
[2018-09-12 05:30] LABS: ABG Base Excess -6 mEq/L (-2 to 3); ABG HCO3 20 mEq/L (21-27); ABG Oxygen Saturation 97 % (95-98); ABG PCO2 38 mmHg (35-45); ABG PH 7.32 pH Units (7.32-7.45); ABG PO2 98 mmHg (85-104); ABG TCO2 21 mEq/L (20-26); Blood Gas PEEP 5 cm H2O; Blood Gas Respiration Rate 12; Blood Gas VT 500 cc
[2018-09-12 06:45] LABS: Hematocrit 25.5 % (37.5-50.1); Hemoglobin 8.5 g/dL (12.9-16.9); Mean Corpuscular HGB Conc 33.3 g/dL (31.6-35.5); Mean Corpuscular Hemoglobin 32.8 pg (28.0-33.3); Mean Corpuscular Volume 98.5 fL (83.0-100.0); Mean Platelet Volume 12.5 fL (9.4-12.4); Nucleated Red Blood Cells 19.9 /100 WBC (0); Platelet Count 105 K/mcL (140-400); Red Blood Count 2.59 M/mcL (4.19-5.50); Red Cell Distribution Width 16.2 % (11.5-14.5)
--- NOTE | 2018-09-12 06:47 | Pulmonology Progress Note ---
<JanieMiguel T - Last Filed: 09/12/18 10:18> Date of Encounter: 09/12/18 Time of Encounter: 06:47 Assessment and Plan (1) Upper gastrointestinal hemorrhage Current Visit: Yes Status: Acute -Presented with multiple episodes of melena and coffee-ground emesis -Hgb 6.3 on arrival -Received total 3 units PRBC -EGD 09/10/18: Large fresh clot seen in fundus along with old blood. No active bleeding -EGD 09/11/18: Again demonstrated large clot in fundus with suspicion bleeding source under fundal clot -Hgb 8.5 today -Will remain intubated and sedated with GI plan to repeat EGD Friday -Continue to trend H&H and transfuse when indicated -Continue PPI and octreotide dc (2) SPIKE (acute kidney injury) Current Visit: Yes Status: Acute -Likely 2/2 hypovolemia -Cr 1.56 on arrival -Renal function worsening and Cr 2.41, BUN 82 -Continue IVF, avoid nephrotoxins and trend renal function (3) Alcohol abuse Current Visit: No Status: Acute -Extensive alcohol hx -CIWA with ativan caused further agitation in ED -Continue precedex, banana bag (4) Cirrhosis Current Visit: No Status: Chronic -Hx of cirrhosis 2/2 alcohol abuse -CT abd/plv 09/10/18 with large gastric and retroperitoneal varicies -MELD-Na 16, DF 29 -Ammonia 56 -GI following Qualifiers: Hepatic cirrhosis type: alcoholic cirrhosis Ascites presence: unspecified Qualified Code(s): K70.30 - Alcoholic cirrhosis of liver without ascites (5) DM (diabetes mellitus), type 2 Current Visit: No Status: Chronic -SSI and accucheks Qualifiers: 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 Remains intubated and sedated Objective PUL Vital signs: Last Vital Signs Temp 97.3 F L 05/11/19 04:00 Pulse 88 09/12/18 06:00 Resp 21 09/12/18 06:00 BP 131/76 09/12/18 06:00 Pulse Ox 100 09/12/18 06:00 General appearance: no acute distress, other (intubated and sedated ) Eyes: nonicteric ENT: oropharynx dry Effort: other (on vent) Auscultation: bilateral: clear Cardiovascular: regular rate and rhythm Gastrointestinal: normoactive bowel sounds, soft, non-tender, non-distended Extremities: no cyanosis, no edema other (sedated) other (sedated) Ventilator Settings Ventilator Settings: Ventilator Settings, Last 8 Hours Ventilator Tidal Volume 500 Setting Ventilator Tidal Volume 500 Setting Ventilator Tidal Volume 500 Setting Ventilator Tidal Volume 500 Setting Ventilator Tidal Volume 500 Setting Ventilator Tidal Volume 500 Setting Ventilator Tidal Volume 500 Setting Ventilator Tidal Volume 500 Setting Ventilator Tidal Volume 500 Setting Ventilator Tidal Volume 500 Setting Ventilator Tidal Volume 500 Setting Ventilator Tidal Volume 500 Setting Ventilator Respiratory Rate 12 Setting Ventilator Respiratory Rate 12 Setting Ventilator Respiratory Rate 12 Setting Ventilator Respiratory Rate 12 Setting Ventilator Respiratory Rate 12 Setting Ventilator Respiratory Rate 12 Setting Ventilator Respiratory Rate 12 Setting Ventilator Respiratory Rate 12 Setting Ventilator Respiratory Rate 12 Setting Ventilator Respiratory Rate 12 Setting Ventilator Respiratory Rate 12 Setting Ventilator Respiratory Rate 12 Setting Actual Respiratory Rate 18 Actual Respiratory Rate 21 Actual Respiratory Rate 19 Actual Respiratory Rate 16 Actual Respiratory Rate 18 Actual Respiratory Rate 18 Actual Respiratory Rate 19 Actual Respiratory Rate 16 Actual Respiratory Rate 18 Actual Respiratory Rate 17 Actual Respiratory Rate 16 Positive End Expiratory 5 Pressure Positive End Expiratory 5 Pressure Positive End Expiratory 5 Pressure Positive End Expiratory 5 Pressure Positive End Expiratory 5 Pressure Positive End Expiratory 5 Pressure Positive End Expiratory 5 Pressure Positive End Expiratory 5 Pressure Positive End Expiratory 5 Pressure Positive End Expiratory 5 Pressure Positive End Expiratory 5 Pressure Peak Inspiratory Airway 25 Pressure Peak Inspiratory Airway 21 Pressure Peak Inspiratory Airway 23 Pressure Peak Inspiratory Airway 32 Pressure Peak Inspiratory Airway 26 Pressure Peak Inspiratory Airway 25 Pressure Peak Inspiratory Airway 21 Pressure Peak Inspiratory Airway 16 Pressure Peak Inspiratory Airway 19 Pressure Peak Inspiratory Airway 25 Pressure Peak Inspiratory Airway 20 Pressure Results - Laboratory Findings CBC and BMP: 09/12/18 06:33 09/12/18 06:33 ABG ABG pH 7.32 pH Units (7.32-7.45) 09/12/18 05:27 ABG pCO2 38 mmHg (35-45) 09/12/18 05:27 ABG pO2 98 mmHg (85-104) 09/12/18 05:27 ABG O2 Saturation 97 % (95-98) 09/12/18 05:27 PT/INR, D-dimer PT 15.4 Seconds (9.4-12.1) H 09/11/18 05:18 Abnormal lab findings: Abnormal lab results WBC 23.6 K/mcL (4.3-11.1) H 09/11/18 06:39 RBC 2.61 M/mcL (4.19-5.50) L 09/11/18 06:39 Hgb 8.0 g/dL (12.9-16.9) L 09/11/18 13:54 Hct 24.4 % (37.5-50.1) L 09/11/18 13:54 MCV 103.9 fL (83.0-100.0) H 09/10/18 11:19 MCH 34.8 pg (28.0-33.3) H 09/10/18 11:19 RDW 15.9 % (11.5-14.5) H 09/11/18 06:39 Plt Count 116 K/mcL (140-400) L 09/11/18 06:39 MPV 12.7 fL (9.4-12.4) H 09/11/18 06:39 18.7 K/mcL (1.6-8.9) H 09/11/18 06:39 2.0 K/mcL (0.0-1.3) H 09/11/18 06:39 Nucleated RBCs/100 WBC 10.6 /100 WBC (0) H 09/11/18 06:39 Immature Plt Fraction 10.3 % (1.1-6.1) H 09/11/18 06:39 PT 15.4 Seconds (9.4-12.1) H 09/11/18 05:18 APTT 24.1 Seconds (26.0-36.0) L 09/11/18 05:18 ABG pH 7.31 pH Units (7.32-7.45) L 09/11/18 05:21 ABG pO2 199 mmHg (85-104) H 09/11/18 05:21 ABG HCO3 20 mEq/L (21-27) L 09/12/18 05:27 ABG O2 Saturation 100 % (95-98) H 09/11/18 05:21 ABG Base Excess -6 mEq/L (-2 to 3) L 09/12/18 05:27 Potassium 5.7 mEq/L (3.5-5.1) H D 09/11/18 06:07 Chloride 116 mEq/L (98-107) H 09/11/18 06:07 Carbon Dioxide 20 mEq/L (23-29) L 09/11/18 06:07 BUN 70 mg/dL (8-23) H 09/11/18 06:07 1.81 mg/dL (0.70-1.30) H 09/11/18 06:07 Est GFR ( Amer) 45 (> 60) L 09/11/18 06:07 Est GFR (Non-Af Amer) 37 (> 60) L 09/11/18 06:07 39 (6-26) H 09/11/18 06:07 Glucose 209 mg/dL (70-105) H 09/11/18 06:07 POC Glucose 190 mg/dL (70-99) H 09/12/18 03:37 321 (280-300) H 09/11/18 06:07 Calcium 7.7 mg/dL (8.6-10.3) L 09/11/18 06:07 1.5 mg/dL (0.3-1.0) H 09/11/18 06:07 AST 105 Units/L (13-39) H 09/11/18 06:07 ALT 78 Units/L (7-52) H 09/11/18 06:07 56 mcmol/L (16-53) H 09/10/18 11:19 0.09 ng/mL (< 0.04) H* 09/10/18 23:52 4.5 g/dL (6.4-8.9) L 09/11/18 06:07 2.8 g/dL (3.5-5.7) L 09/11/18 06:07 1.7 g/dL (2.4-3.5) L 09/11/18 06:07 Stool Occult Bld Scrn Positive (Negative) A 09/10/18 11:33 Crossmatch See Detail 09/10/18 11:19 - Microbiology Findings Microbiology Findings: Microbiology, Last 48 Hours 09/10/18 12:31 Blood Culture - Preliminary Peripheral Venipuncture Culture is incubating and being continuously m onitored for growth. Final report to follow. 09/10/18 12:32 Blood Culture - Preliminary Peripheral Venipuncture Culture is incubating and being continuously monitored for growth. Final report to follow. - Clinical Findings Intake & Output: Intake & Output 09/11/18 09/11/18 09/12/18 15:59 23:59 07:59 Intake Total 555 / 2359 300 / 2359 646 / 646 Output Total 100 / 750 350 / 750 350 / 350 Balance 455 / 1609 -50 / 1609 296 / 296 Weight 108 kg 109 kg Consult Discharge Plan - Plan Referrals: [facility] [Primary Care Provider] - <Angeli Guaman M - Last Filed: 09/12/18 10:54> Date of Encounter: 09/12/18 Objective PUL Vital signs: Last Vital Signs Temp 97.4 F L 09/12/18 09:26 Pulse 93 09/12/18 10:00 Resp 20 09/12/18 10:00 BP 117/67 09/12/18 10:00 Pulse Ox 100 09/12/18 10:00 Ventilator Settings Ventilator Settings: Ventilator Settings, Last 8 Hours Ventilator Tidal Volume 550 Setting Ventilator Tidal Volume 550 Setting Ventilator Tidal Volume 550 Setting Ventilator Tidal Volume 550 Setting Ventilator Tidal Volume 500 Setting Ventilator Tidal Volume 550 Setting Ventilator Tidal Volume 500 Setting Ventilator Tidal Volume 500 Setting Ventilator Tidal Volume 500 Setting Ventilator Tidal Volume 500 Setting Ventilator Tidal Volume 500 Setting Ventilator Tidal Volume 500 Setting Ventilator Respiratory Rate 12 Setting Ventilator Respiratory Rate 12 Setting Ventilator Respiratory Rate 12 Setting Ventilator Respiratory Rate 12 Setting Ventilator Respiratory Rate 12 Setting Ventilator Respiratory Rate 12 Setting Ventilator Respiratory Rate 12 Setting Ventilator Respiratory Rate 12 Setting Ventilator Respiratory Rate 12 Setting Ventilator Respiratory Rate 12 Setting Ventilator Respiratory Rate 12 Setting Actual Respiratory Rate 20 Actual Respiratory Rate 19 Actual Respiratory Rate 18 Actual Respiratory Rate 18 Actual Respiratory Rate 20 Actual Respiratory Rate 18 Actual Respiratory Rate 21 Actual Respiratory Rate 19 Actual Respiratory Rate 16 Actual Respiratory Rate 18 Positive End Expiratory 5 Pressure Positive End Expiratory 5 Pressure Positive End Expiratory 5 Pressure Positive End Expiratory 5 Pressure Positive End Expiratory 5 Pressure Positive End Expiratory 5 Pressure Peak Inspiratory Airway 17 Pressure Peak Inspiratory Airway 23 Pressure Peak Inspiratory Airway 15 Pressure Peak Inspiratory Airway 6 Pressure Peak Inspiratory Airway 19 Pressure Peak Inspiratory Airway 25 Pressure Peak Inspiratory Airway 21 Pressure Peak Inspiratory Airway 23 Pressure Peak Inspiratory Airway 32 Pressure Peak Inspiratory Airway 26 Pressure Results - Laboratory Findings CBC and BMP: 09/12/18 06:33 09/12/18 06:33 ABG ABG pH 7.32 pH Units (7.32-7.45) 09/12/18 05:27 ABG pCO2 38 mmHg (35-45) 09/12/18 05:27 ABG pO2 98 mmHg (85-104) 09/12/18 05:27 ABG O2 Saturation 97 % (95-98) 09/12/18 05:27 PT/INR, D-dimer PT 15.4 Seconds (9.4-12.1) H 09/11/18 05:18 Abnormal lab findings: Abnormal lab results WBC 32.5 K/mcL (4.3-11.1) H* 09/12/18 06:33 RBC 2.59 M/mcL (4.19-5.50) L 09/12/18 06:33 Hgb 8.5 g/dL (12.9-16.9) L 09/12/18 06:33 Hct 25.5 % (37.5-50.1) L 09/12/18 06:33 MCV 103.9 fL (83.0-100.0) H 09/10/18 11: MCH 34.8 pg (28.0-33.3) H 09/10/18 11: RDW 16.2 % (11.5-14.5) H 09/12/18 06:33 Plt Count 105 K/mcL (140-400) L 09/12/18 06:33 MPV 12.5 fL (9.4-12.4) H 09/12/18 06:33 6.0 % (0-4) H 09/12/18 06:33 4.0 % (0) H 09/12/18 06:33 23.4 K/mcL (1.6-8.9) H 09/12/18 06:33 5.9 K/mcL (0.6-4.6) H 09/12/18 06:33 2.0 K/mcL (0.0-1.3) H 09/12/18 06:33 Nucleated RBCs/100 WBC 19.9 /100 WBC (0) H 09/12/18 06:33 Slight Decrease (Normal) L 09/12/18 06:33 Immature Plt Fraction 10.3 % (1.1-6.1) H 09/11/18 06:39 1+ (Not Present) A 09/12/18 06:33 2+ (Not Present) A 09/12/18 06:33 Present (Not Present) A 09/12/18 06:33 PT 15.4 Seconds (9.4-12.1) H 09/11/18 05:18 APTT 24.1 Seconds (26.0-36.0) L 09/11/18 05:18 ABG pH 7.31 pH Units (7.32-7.45) L 09/11/18 05:21 ABG pO2 199 mmHg (85-104) H 09/11/18 05:21 ABG HCO3 20 mEq/L (21-27) L 09/12/18 05:27 ABG O2 Saturation 100 % (95-98) H 09/11/18 05:21 ABG Base Excess -6 mEq/L (-2 to 3) L 09/12/18 05:27 Potassium 5.7 mEq/L (3.5-5.1) H D 09/11/18 06:07 Chloride 117 mEq/L (98-107) H 09/12/18 06:33 Carbon Dioxide 18 mEq/L (23-29) L 09/12/18 06:33 BUN 82 mg/dL (8-23) H 09/12/18 06:33 2.41 mg/dL (0.70-1.30) H 09/12/18 06:33 Est GFR ( Amer) 32 (> 60) L 09/12/18 06:33 Est GFR (Non-Af Amer) 27 (> 60) L 09/12/18 06:33 34 (6-26) H 09/12/18 06:33 Glucose 176 mg/dL (70-105) H 09/12/18 06:33 POC Glucose 173 mg/dL (70-99) H 09/12/18 08:21 327 (280-300) H 09/12/18 06:33 Calcium 7.6 mg/dL (8.6-10.3) L 09/12/18 06:33 2.7 mg/dL (0.3-1.0) H 09/12/18 06:33 AST 125 Units/L (13-39) H 09/12/18 06:33 ALT 107 Units/L (7-52) H 09/12/18 06:33 56 mcmol/L (16-53) H 09/10/18 11:19 0.09 ng/mL (< 0.04) H* 09/10/18 23:52 4.5 g/dL (6.4-8.9) L 09/12/18 06:33 2.8 g/dL (3.5-5.7) L 09/12/18 06:33 1.7 g/dL (2.4-3.5) L 09/12/18 06:33 Stool Occult Bld Scrn Positive (Negative) A 09/10/18 11:33 Crossmatch See Detail 09/10/18 11:19 - Microbiology Findings Microbiology Findings: Microbiology, Last 48 Hours 09/10/18 12:31 Blood Culture - Preliminary Peripheral Venipuncture Culture is incubating and being continuously monitored for growth. Final report to follow. 09/10/18 12:32 Blood Culture - Preliminary Peripheral Venipuncture Culture is incubating and being continuously monitored for growth. Final report to follow. - Clinical Findings Intake & Output: Intake & Output 09/11/18 09/12/18 09/12/18 23:59 07:59 15:59 Intake Total 300 / 2359 646 / 700 54 / 700 Output Total 350 / 750 350 / 625 275 / 625 Balance -50 / 1609 296 / 75 -221 / 75 Weight 109 kg - Attending Attestation I examined this patient and my medical decision-making was reviewed with the Resident Physician. I agree with the documented findings, disposition and treatment plan as described except to the extent set forth below. Patient seen and examined. Labs, radiology, chart personally reviewed. Agree with resident's history and physical, assessment, plan with following comments: RELEASE MANAGER: Patient does not follows commands, he is still sedated and will plan for sedation vacation since this patient has significant on-call abuse and there is a risk of mental status change and delirium. Pulmonary: Acceptable oxygenation and ventilation and changed his vent setting based on his ABG result. There is no plan for extubation today since there is plan for endoscopy tomorrow and patient will need to be on on the ventilator. Cardiovascular: stable GI: Nutrition per dietary and GI prophylaxis per routine. Due to his GI bleed this is will be deferred to minute clerk went to resume diet. Heme: DVT prophylaxis per routine. Continue monitoring H&H. ID: Continue antibiotics and plan to de-escalation Renal; urine out put and renal function reviewed Endorcine: blood glucose is monitored Lines: all lines checked and no evidence of infections Skin: skin care to prevent pressure ulcers per nursing routine care I spent 32 min of Critical Care time with this patient. It involved decision making of high complexity to assess, manipulate, and support vital organ system failure and/or to prevent further life threatening deterioration of the patient's condition. The time involved in the performance of separately reportable procedures was not counted toward critical care time.
[2018-09-12 06:57] LABS: Albumin 2.8 g/dL (3.5-5.7); Albumin/Globulin Ratio 1.6 (1.1-2.2); Bilirubin,Total 2.7 mg/dL (0.3-1.0); Calcium 7.6 mg/dL (8.6-10.3); Globulin 1.7 g/dL (2.4-3.5); Potassium 5.1 mEq/L (3.5-5.1); Total Protein 4.5 g/dL (6.4-8.9)
[2018-09-12 07:31] LABS: Lymphocytes # 5.9 K/mcL (0.6-4.6); Neutrophils # 23.4 K/mcL (1.6-8.9); Platelet Estimate Slight Decrease (Normal)
[2018-09-12 07:33] LABS: Anisocytosis 2+ (Not Present); Macrocytosis Present (Not Present); Polychromasia 1+ (Not Present)
[2018-09-12] MEDS: Chlorhexidine Rinse 15 ML MOUTHWASH MM SCH ×2 (07:57→21:57)
[2018-09-12] MEDS: Piperacillin/Tazobactam 3.375 GM in 0.9 % Sodium Chloride Mini Bag 100 ML IVPB SCH ×3 (07:58→23:30)
[2018-09-12] MEDS: Thiamine (B-1) 100 MG in D5% in Water 50 ML IVPB SCH (08:03)
[2018-09-12] MEDS: 0.9 % Sodium Chloride 1,000 ML IVC SCH ×2 (14:24→23:30)
[2018-09-12 22:45] LABS: Hematocrit 23.8 % (37.5-50.1); Hemoglobin 8.3 g/dL (12.9-16.9)
[2018-09-13] MEDS: Artificial Tears SOLN 15 ML BOTTLE BOTH EYES SCH ×7 (00:15→23:39)
[2018-09-13] MEDS: Insulin LISPRO 300 UNITS/3 ML VIAL SQ SCH ×7 (00:15→23:39)
[2018-09-13] MEDS: Pantoprazole 40 MG in 0.9 % Sodium Chloride Mini Bag 100 ML IVC SCH ×6 (00:15→19:53)
[2018-09-13] MEDS: FentaNYL (PF) 1,000 MCG in 0.9 % Sodium Chloride 80 ML IVC SCH ×3 (02:38→18:46)
[2018-09-13] MEDS: Dexmedetomidine HCl 400 MCG/100 ML MLS IVC SCH ×4 (02:57→21:33)
[2018-09-13] MEDS: Ipratropium/Albuterol Neb 3 ML IH SCH ×6 (03:24→23:32)
[2018-09-13 04:22] LABS: Hematocrit 22.6 % (37.5-50.1); Hemoglobin 7.6 g/dL (12.9-16.9); Immature Platelets 8.3 % (1.1-6.1); Mean Corpuscular HGB Conc 33.6 g/dL (31.6-35.5); Mean Corpuscular Hemoglobin 34.2 pg (28.0-33.3); Mean Corpuscular Volume 101.8 fL (83.0-100.0); Mean Platelet Volume 12.6 fL (9.4-12.4); Nucleated Red Blood Cells 22.8 /100 WBC (0); Red Blood Count 2.22 M/mcL (4.19-5.50); Red Cell Distribution Width 17.2 % (11.5-14.5)
[2018-09-13 04:24] LABS: Platelet Count 85 K/mcL (140-400)
[2018-09-13 04:41] LABS: Calcium 6.7 mg/dL (8.6-10.3); Potassium 4.3 mEq/L (3.5-5.1)
[2018-09-13 04:44] LABS: Lymphocytes # 2.4 K/mcL (0.6-4.6); Platelet Estimate Decreased (Normal)
[2018-09-13 05:50] LABS: ABG Base Excess -7 mEq/L (-2 to 3); ABG HCO3 18 mEq/L (21-27); ABG Oxygen Saturation 96 % (95-98); ABG PCO2 35 mmHg (35-45); ABG PH 7.32 pH Units (7.32-7.45); ABG PO2 86 mmHg (85-104); ABG TCO2 19 mEq/L (20-26); Blood Gas PEEP 5 cm H2O; Blood Gas Respiration Rate 12; Blood Gas VT 550 cc
--- NOTE | 2018-09-13 08:12 | Pulmonology Progress Note ---
<RowenaDinacuco M - Last Filed: 09/13/18 10:26> Date of Encounter: 09/13/18 Objective PUL Vital signs: Last Vital Signs Temp 96.0 F L 09/13/18 09:00 Pulse 63 09/13/18 10:00 Resp 20 09/13/18 10:00 BP 91/58 09/13/18 10:00 Pulse Ox 95 09/13/18 10:00 Ventilator Settings Ventilator Settings: Ventilator Settings, Last 8 Hours Ventilator Tidal Volume 550 Setting Ventilator Tidal Volume 580 Setting Ventilator Tidal Volume 550 Setting Ventilator Tidal Volume 500 Setting Ventilator Tidal Volume 550 Setting Ventilator Tidal Volume 550 Setting Ventilator Tidal Volume 550 Setting Ventilator Tidal Volume 550 Setting Ventilator Tidal Volume 550 Setting Ventilator Tidal Volume 550 Setting Ventilator Tidal Volume 550 Setting Ventilator Tidal Volume 550 Setting Ventilator Tidal Volume 550 Setting Ventilator Tidal Volume 550 Setting Ventilator Respiratory Rate 12 Setting Ventilator Respiratory Rate 12 Setting Ventilator Respiratory Rate 12 Setting Ventilator Respiratory Rate 12 Setting Ventilator Respiratory Rate 12 Setting Ventilator Respiratory Rate 12 Setting Ventilator Respiratory Rate 12 Setting Ventilator Respiratory Rate 12 Setting Ventilator Respiratory Rate 12 Setting Ventilator Respiratory Rate 12 Setting Ventilator Respiratory Rate 12 Setting Ventilator Respiratory Rate 12 Setting Ventilator Respiratory Rate 12 Setting Actual Respiratory Rate 20 Actual Respiratory Rate 23 Actual Respiratory Rate 23 Actual Respiratory Rate 21 Actual Respiratory Rate 18 Actual Respiratory Rate 20 Actual Respiratory Rate 18 Actual Respiratory Rate 18 Actual Respiratory Rate 20 Actual Respiratory Rate 22 Actual Respiratory Rate 18 Actual Respiratory Rate 24 Positive End Expiratory 5 Pressure Positive End Expiratory 5 Pressure Positive End Expiratory 5 Pressure Positive End Expiratory 5 Pressure Positive End Expiratory 5 Pressure Positive End Expiratory 5 Pressure Positive End Expiratory 5 Pressure Positive End Expiratory 5 Pressure Positive End Expiratory 5 Pressure Positive End Expiratory 5 Pressure Positive End Expiratory 5 Pressure Positive End Expiratory 5 Pressure Positive End Expiratory 5 Pressure Peak Inspiratory Airway 8 Pressure Peak Inspiratory Airway 9 Pressure Peak Inspiratory Airway 6 Pressure Peak Inspiratory Airway 18 Pressure Peak Inspiratory Airway 13 Pressure Peak Inspiratory Airway 20 Pressure Peak Inspiratory Airway 21 Pressure Peak Inspiratory Airway 21 Pressure Peak Inspiratory Airway 5.7 Pressure Peak Inspiratory Airway 10 Pressure Peak Inspiratory Airway 7.3 Pressure Peak Inspiratory Airway 18 Pressure Results - Laboratory Findings CBC and BMP: 09/13/18 03:36 09/13/18 03:36 ABG ABG pH 7.32 pH Units (7.32-7.45) 09/13/18 05:47 ABG pCO2 35 mmHg (35-45) 09/13/18 05:47 ABG pO2 86 mmHg (85-104) 09/13/18 05:47 ABG O2 Saturation 96 % (95-98) 09/13/18 05:47 PT/INR, D-dimer PT 15.4 Seconds (9.4-12.1) H 09/11/18 05:18 Abnormal lab findings: Abnormal lab results WBC 24.4 K/mcL (4.3-11.1) H 09/13/18 03:36 RBC 2.22 M/mcL (4.19-5.50) L 09/13/18 03:36 Hgb 7.6 g/dL (12.9-16.9) L 09/13/18 03:36 Hct 22.6 % (37.5-50.1) L 09/13/18 03:36 MCV 101.8 fL (83.0-100.0) H 09/13/18 03:36 MCH 34.2 pg (28.0-33.3) H 09/13/18 03:36 RDW 17.2 % (11.5-14.5) H 09/13/18 03:36 Plt Count 85 K/mcL (140-400) L 09/13/18 03:36 MPV 12.6 fL (9.4-12.4) H 09/13/18 03:36 6.0 % (0-4) H 09/12/18 06:33 4.0 % (0) H 09/12/18 06:33 21.0 K/mcL (1.6-8.9) H 09/13/18 03:36 5.9 K/mcL (0.6-4.6) H 09/12/18 06:33 2.0 K/mcL (0.0-1.3) H 09/12/18 06:33 Nucleated RBCs/100 WBC 22.8 /100 WBC (0) H 09/13/18 03:36 Decreased (Normal) L 09/13/18 03:36 Immature Plt Fraction 8.3 % (1.1-6.1) H 09/13/18 03:36 1+ (Not Present) A 09/12/18 06:33 2+ (Not Present) A 09/12/18 06:33 Present (Not Present) A 09/12/18 06:33 PT 15.4 Seconds (9.4-12.1) H 09/11/18 05:18 APTT 24.1 Seconds (26.0-36.0) L 09/11/18 05:18 ABG pH 7.31 pH Units (7.32-7.45) L 09/11/18 05:21 ABG pO2 199 mmHg (85-104) H 09/11/18 05:21 ABG HCO3 18 mEq/L (21-27) L 09/13/18 05:47 ABG Total CO2 19 mEq/L (20-26) L 09/13/18 05:47 ABG O2 Saturation 100 % (95-98) H 09/11/18 05:21 ABG Base Excess -7 mEq/L (-2 to 3) L 09/13/18 05:47 Sodium 146 mEq/L (136-145) H 09/13/18 03:36 Potassium 5.7 mEq/L (3.5-5.1) H D 09/11/18 06:07 Chloride 119 mEq/L (98-107) H 09/13/18 03:36 Carbon Dioxide 19 mEq/L (23-29) L 09/13/18 03:36 BUN 89 mg/dL (8-23) H 09/13/18 03:36 2.68 mg/dL (0.70-1.30) H 09/13/18 03:36 Est GFR ( Amer) 29 (> 60) L 09/13/18 03:36 Est GFR (Non-Af Amer) 24 (> 60) L 09/13/18 03:36 33 (6-26) H 09/13/18 03:36 Glucose 161 mg/dL (70-105) H 09/13/18 03:36 POC Glucose 200 mg/dL (70-99) H 09/13/18 09:08 333 (280-300) H 09/13/18 03:36 Calcium 6.7 mg/dL (8.6-10.3) L 09/13/18 03:36 2.7 mg/dL (0.3-1.0) H 09/12/18 06:33 AST 125 Units/L (13-39) H 09/12/18 06:33 ALT 107 Units/L (7-52) H 09/12/18 06:33 56 mcmol/L (16-53) H 09/10/18 11:19 0.09 ng/mL (< 0.04) H* 09/10/18 23:52 4.5 g/dL (6.4-8.9) L 09/12/18 06:33 2.8 g/dL (3.5-5.7) L 09/12/18 06:33 1.7 g/dL (2.4-3.5) L 09/12/18 06:33 Stool Occult Bld Scrn Positive (Negative) A 09/10/18 11:33 Crossmatch See Detail 09/10/18 11:19 - Clinical Findings Intake & Output: Intake & Output 09/12/18 09/13/18 09/13/18 23:59 07:59 15:59 Intake Total 1241 / 2251 657 / 900 243 / 900 Output Total 650 / 1450 750 / 750 Balance 591 / 801 -93 / 150 243 / 150 Weight 117 kg Consult Discharge Plan - Plan [facility]errals: [facility] [Primary Care Provider[facility] - - Attending Attestation I examined this patient and my medical decision-making was reviewed with the Resident Physician. I agree with the documented findings, disposition and treatment plan as described except to the extent set forth below. Patient seen and examined. Labs, radiology, chart personally reviewed. Agree with resident's history and physical, assessment, plan with following comments: IMPORT CLERK: Patient sedated and does not follows commands, due to his heavy history of alcohol abuse, we will continue sedation and he had procedure done. Pulmonary: Acceptable oxygenation and ventilation and since he continue to have some evidence of bleeding and that requires multiple procedures so far, there is no plan for extubation and reviewed his ABG and made appropriate vent changes, Cardiovascular: Relatively stable , however he is at risk of complication from blood loss and also from his history of alcohol abuse. GI: Nutrition per dietary and GI prophylaxis per routine. Director Of Strategic Partnerships was going to do endoscopy, however GI was not available and for that reason general surgery was consulted who did repeat endoscopy was still evidence of blood clot and bleeding. Will transfuse blood and hopefully will have more definitive treatment plan from the gastroenterology/surgery for the treatment and controlled the bleeding. Heme: DVT prophylaxis per routine ID: Continue antibiotics and plan to de-escalation Renal; urine out put and renal function reviewed Endorcine: blood glucose is monitored Lines: all lines checked and no evidence of infections Skin: skin care to prevent pressure ulcers per nursing routine care I spent 35 min of Critical Care time with this patient. It involved decision making of high complexity to assess, manipulate, and support vital organ system failure and/or to prevent further life threatening deterioration of the patient's condition. The time involved in the performance of separately reportable procedures was not counted toward critical care time. <Yaakov Torres - Last Filed: 09/13/18 13:08> Date of Encounter: 09/13/18 Time of Encounter: 12:54 Assessment and Plan (1) GI bleed Current Visit: Yes Status: Acute -Presented with multiple episodes of melena and coffee-ground emesis -Hgb 6.3 on arrival -Received total 3 units PRBC -EGD 09/10/18: Large fresh clot seen in fundus along with old blood. No active bleeding -EGD 09/11/18: Again demonstrated large clot in fundus with suspicion bleeding source under fundal clot -Hgb 8.5 - Hgb 7.6 today -Continue PPI and octreotide dc GI was unable to come to perform the EGD, general surgery was contacted and Dr. Pichardo came perform EGD at bedside which showed normal esophagus, normal duodenum, a clotted blood in the cardia and hematin and in the cardia this was injected. Patient is received a total of 3 units of RBCs, with one currently being transfused Qualifiers: GI bleed type/associated pathology: unspecified gastrointestinal hemorrhage type Qualified Code(s): K92.2 - Gastrointestinal hemorrhage, unspecified (2) SPIKE (acute kidney injury) Current Visit: Yes Status: Acute -Likely 2/2 hypovolemia -Cr 1.56 on arrival -Renal function worsening and Cr 2.41 on 09/12/18, today is 2.68 with continued worsening function consider consult to nephrology -Continue IVF, avoid nephrotoxins and trend renal function - renal ultrasound ordered - urine creatinine, sodium ordered (3) Cirrhosis Current Visit: No Status: Chronic -Hx of cirrhosis 2/2 alcohol abuse -CT abd/plv 09/10/18 with large gastric and retroperitoneal varicies -MELD-Na 16, DF 29 -Ammonia 56 -GI following Qualifiers: Hepatic cirrhosis type: alcoholic cirrhosis Ascites presence: unspecified Qualified Code(s): K70.30 - Alcoholic cirrhosis of liver without ascites (4) Alcohol abuse Current Visit: No Status: Acute - CIWA protocols in place - continue precedex - continue with banana bag (5) DM (diabetes mellitus), type 2 Current Visit: No Status: Chronic -SSI and accucheks Qualifiers: Diabetes mellitus usp insulin use: without terminal worker use Diabetes mellitus complication status: without complication Qualified Code(s): E11.9 - Type 2 diabetes mellitus without complications (6) DVT prophylaxis Current Visit: No Status: Acute SCDs (7) Leukocytosis Current Visit: Yes Status: Acute Likely reactive as no further signs of infection noted Qualifiers: Leukocytosis type: unspecified Qualified Code(s): D72.829 - Elevated white blood cell count, unspecified Subjective Principal diagnosis: UGI bleed Interval history: Further history is unable to be obtained, as patient is really sedated and intubated. Objective PUL Vital signs: Last Vital Signs Temp 98.7 F 09/13/18 04:00 Pulse 70 09/13/18 06:00 Resp 19 09/13/18 07:20 BP 99/56 09/13/18 06:14 Pulse Ox 97 09/13/18 07:20 General appearance: no acute distress Eyes: nonicteric ENT: oropharynx dry Mallampati (class): 3 Neck: supple Effort: normal Auscultation: bilateral: diminished breath sounds Cardiovascular: regular rate and rhythm Gastrointestinal: normoactive bowel sounds, non-tender, non-distended Integumentary: normal Extremities: no cyanosis, pink and warm, pulses normal Musculoskeletal: no deformities unable to assess due to mental status Ventilator Settings Ventilator Settings: Ventilator Settings, Last 8 Hours Ventilator Tidal Volume 500 Setting Ventilator Tidal Volume 550 Setting Ventilator Tidal Volume 550 Setting Ventilator Tidal Volume 550 Setting Ventilator Tidal Volume 550 Setting Ventilator Tidal Volume 550 Setting Ventilator Tidal Volume 550 Setting Ventilator Tidal Volume 550 Setting Ventilator Tidal Volume 550 Setting Ventilator Tidal Volume 550 Setting Ventilator Tidal Volume 550 Setting Ventilator Tidal Volume 550 Setting Ventilator Respiratory Rate 12 Setting Ventilator Respiratory Rate 12 Setting Ventilator Respiratory Rate 12 Setting Ventilator Respiratory Rate 12 Setting Ventilator Respiratory Rate 12 Setting Ventilator Respiratory Rate 12 Setting Ventilator Respiratory Rate 12 Setting Ventilator Respiratory Rate 12 Setting Ventilator Respiratory Rate 12 Setting Ventilator Respiratory Rate 12 Setting Ventilator Respiratory Rate 12 Setting Actual Respiratory Rate 18 Actual Respiratory Rate 18 Actual Respiratory Rate 18 Actual Respiratory Rate 20 Actual Respiratory Rate 22 Actual Respiratory Rate 18 Actual Respiratory Rate 24 Actual Respiratory Rate 23 Actual Respiratory Rate 19 Actual Respiratory Rate 22 Positive End Expiratory 5 Pressure Positive End Expiratory 5 Pressure Positive End Expiratory 5 Pressure Positive End Expiratory 5 Pressure Positive End Expiratory 5 Pressure Positive End Expiratory 5 Pressure Positive End Expiratory 5 Pressure Positive End Expiratory 5 Pressure Positive End Expiratory 5 Pressure Positive End Expiratory 5 Pressure Positive End Expiratory 5 Pressure Peak Inspiratory Airway 13 Pressure Peak Inspiratory Airway 21 Pressure Peak Inspiratory Airway 21 Pressure Peak Inspiratory Airway 5.7 Pressure Peak Inspiratory Airway 10 Pressure Peak Inspiratory Airway 7.3 Pressure Peak Inspiratory Airway 18 Pressure Peak Inspiratory Airway 13 Pressure Peak Inspiratory Airway 16 Pressure Peak Inspiratory Airway 14 Pressure Results - Laboratory Findings CBC and BMP: 09/13/18 03:36 09/13/18 03:36 ABG ABG pH 7.32 pH Units (7.32-7.45) 09/13/18 05:47 ABG pCO2 35 mmHg (35-45) 09/13/18 05:47 ABG pO2 86 mmHg (85-104) 09/13/18 05:47 ABG O2 Saturation 96 % (95-98) 09/13/18 05:47 PT/INR, D-dimer PT 15.4 Seconds (9.4-12.1) H 09/11/18 05:18 Abnormal lab findings: Abnormal lab results WBC 24.4 K/mcL (4.3-11.1) H 09/13/18 03:36 RBC 2.22 M/mcL (4.19-5.50) L 09/13/18 03:36 Hgb 7.6 g/dL (12.9-16.9) L 09/13/18 03:36 Hct 22.6 % (37.5-50.1) L 09/13/18 03:36 MCV 101.8 fL (83.0-100.0) H 09/13/18 03:36 MCH 34.2 pg (28.0-33.3) H 09/13/18 03:36 RDW 17.2 % (11.5-14.5) H 09/13/18 03:36 Plt Count 85 K/mcL (140-400) L 09/13/18 03:36 MPV 12.6 fL (9.4-12.4) H 09/13/18 03:36 6.0 % (0-4) H 09/12/18 06:33 4.0 % (0) H 09/12/18 06:33 21.0 K/mcL (1.6-8.9) H 09/13/18 03:36 5.9 K/mcL (0.6-4.6) H 09/12/18 06:33 2.0 K/mcL (0.0-1.3) H 09/12/18 06:33 Nucleated RBCs/100 WBC 22.8 /100 WBC (0) H 09/13/18 03:36 Decreased (Normal) L 09/13/18 03:36 Immature Plt Fraction 8.3 % (1.1-6.1) H 09/13/18 03:36 1+ (Not Present) A 09/12/18 06:33 2+ (Not Present) A 09/12/18 06:33 Present (Not Present) A 09/12/18 06:33 PT 15.4 Seconds (9.4-12.1) H 09/11/18 05:18 APTT 24.1 Seconds (26.0-36.0) L 09/11/18 05:18 ABG pH 7.31 pH Units (7.32-7.45) L 09/11/18 05:21 ABG pO2 199 mmHg (85-104) H 09/11/18 05:21 ABG HCO3 18 mEq/L (21-27) L 09/13/18 05:47 ABG Total CO2 19 mEq/L (20-26) L 09/13/18 05:47 ABG O2 Saturation 100 % (95-98) H 09/11/18 05:21 ABG Base Excess -7 mEq/L (-2 to 3) L 09/13/18 05:47 Sodium 146 mEq/L (136-145) H 09/13/18 03:36 Potassium 5.7 mEq/L (3.5-5.1) H D 09/11/18 06:07 Chloride 119 mEq/L (98-107) H 09/13/18 03:36 Carbon Dioxide 19 mEq/L (23-29) L 09/13/18 03:36 BUN 89 mg/dL (8-23) H 09/13/18 03:36 2.68 mg/dL (0.70-1.30) H 09/13/18 03:36 Est GFR ( Amer) 29 (> 60) L 09/13/18 03:36 Est GFR (Non-Af Amer) 24 (> 60) L 09/13/18 03:36 33 (6-26) H 09/13/18 03:36 Glucose 161 mg/dL (70-105) H 09/13/18 03:36 POC Glucose 159 mg/dL (70-99) H 09/13/18 03:25 333 (280-300) H 09/13/18 03:36 Calcium 6.7 mg/dL (8.6-10.3) L 09/13/18 03:36 2.7 mg/dL (0.3-1.0) H 09/12/18 06:33 AST 125 Units/L (13-39) H 09/12/18 06:33 ALT 107 Units/L (7-52) H 09/12/18 06:33 56 mcmol/L (16-53) H 09/10/18 11:19 0.09 ng/mL (< 0.04) H* 09/10/18 23:52 4.5 g/dL (6.4-8.9) L 09/12/18 06:33 2.8 g/dL (3.5-5.7) L 09/12/18 06:33 1.7 g/dL (2.4-3.5) L 09/12/18 06:33 Stool Occult Bld Scrn Positive (Negative) A 09/10/18 11:33 Crossmatch See Detail 09/10/18 11:19 - Clinical Findings Intake & Output: Intake & Output 09/12/18 09/13/18 09/13/18 23:59 07:59 15:59 Intake Total 1241 / 2251 657 / 657 Output Total 650 / 1450 300 / 300 Balance 591 / 801 357 / 357 Weight 117 kg
[2018-09-13] MEDS ORDERED: *HR* EPINEPHrine 1 MG/10 ML SYRINGE ONE (09:27)
[2018-09-13] MEDS: Thiamine (B-1) 100 MG in D5% in Water 50 ML IVPB SCH (09:53)
[2018-09-13] MEDS: Piperacillin/Tazobactam 3.375 GM in 0.9 % Sodium Chloride Mini Bag 100 ML IVPB SCH ×3 (09:54→23:39)
[2018-09-13] MEDS: Chlorhexidine Rinse 15 ML MOUTHWASH MM SCH ×2 (09:54→19:53)
[2018-09-13] MEDS ORDERED: 0.9 % Sodium Chloride 500 ML ONE (10:39)
[2018-09-13 12:23] LABS: Creatinine,Urine 104 mg/dL; Sodium, Urine < 10.0 mEq/L
[2018-09-14] MEDS: Pantoprazole 40 MG in 0.9 % Sodium Chloride Mini Bag 100 ML IVC SCH ×5 (01:04→23:01)
[2018-09-14] MEDS: Dexmedetomidine HCl 400 MCG/100 ML MLS IVC SCH ×4 (03:25→22:33)
[2018-09-14 03:31] LABS: Nucleated Red Blood Cells 19.6 /100 WBC (0)
[2018-09-14 03:33] LABS: Hematocrit 27.6 % (37.5-50.1); Hemoglobin 9.1 g/dL (12.9-16.9); Immature Platelets 8.2 % (1.1-6.1); Mean Corpuscular Volume 97.2 fL (83.0-100.0); Mean Platelet Volume 12.3 fL (9.4-12.4); Red Blood Count 2.84 M/mcL (4.19-5.50)
[2018-09-14 03:37] LABS: Platelet Count 59 K/mcL (140-400)
[2018-09-14] MEDS: Ipratropium/Albuterol Neb 3 ML IH SCH ×6 (03:39→23:04)
[2018-09-14] MEDS: Insulin LISPRO 300 UNITS/3 ML VIAL SQ SCH ×6 (03:40→23:09)
[2018-09-14] MEDS: Artificial Tears SOLN 15 ML BOTTLE BOTH EYES SCH ×6 (03:40→23:01)
[2018-09-14 03:53] LABS: Albumin 2.4 g/dL (3.5-5.7); Albumin/Globulin Ratio 1.4 (1.1-2.2); Bilirubin,Indirect 1.2 mg/dL (0.0-1.2); Bilirubin,Total 4.2 mg/dL (0.3-1.0); Calcium 6.8 mg/dL (8.6-10.3); Globulin 1.7 g/dL (2.4-3.5); Potassium 4.3 mEq/L (3.5-5.1); Total Protein 4.1 g/dL (6.4-8.9)
[2018-09-14] MEDS: FentaNYL (PF) 1,000 MCG in 0.9 % Sodium Chloride 80 ML IVC SCH ×3 (04:08→22:33)
[2018-09-14 04:16] LABS: Anisocytosis 1+ (Not Present); Lymphocytes # 1.1 K/mcL (0.6-4.6); Macrocytosis Present (Not Present); Monocytes # 1.1 K/mcL (0.0-1.3); Neutrophils # 11.2 K/mcL (1.6-8.9); Polychromasia 1+ (Not Present)
[2018-09-14 04:17] LABS: Platelet Estimate Decreased (Normal)
[2018-09-14 05:19] LABS: ABG Base Excess -9 mEq/L (-2 to 3); ABG HCO3 18 mEq/L (21-27); ABG Oxygen Saturation 85 % (95-98); ABG PCO2 41 mmHg (35-45); ABG PH 7.25 pH Units (7.32-7.45); ABG PO2 58 mmHg (85-104); ABG TCO2 19 mEq/L (20-26); Blood Gas Modality ASSIST CONTROL; Blood Gas PEEP 5 cm H2O; Blood Gas Respiration Rate 12; Blood Gas VT 580 cc
[2018-09-14] MEDS: Chlorhexidine Rinse 15 ML MOUTHWASH MM SCH ×2 (07:57→20:14)
[2018-09-14] MEDS: Piperacillin/Tazobactam 3.375 GM in 0.9 % Sodium Chloride Mini Bag 100 ML IVPB SCH ×3 (07:57→23:01)
[2018-09-14] MEDS: Thiamine (B-1) 100 MG in D5% in Water 50 ML IVPB SCH (09:26)
[2018-09-14 10:39] LABS: INR 1.3; Prothrombin Time 14.3 Seconds (9.4-12.1)
[2018-09-14 10:42] LABS: Activated Partial Thrombo Time 27.9 Seconds (26.0-36.0)
[2018-09-14] MEDS: Lactulose Oral Soln 20 GM/30 ML UDC PO SCH ×3 (11:58→20:20)
[2018-09-14] MEDS: Octreotide 400 MCG in 0.9 % Sodium Chloride 100 ML IVC SCH ×2 (12:05→20:15)
[2018-09-14] MEDS ORDERED: Heparin 1,000 UNITS/500 mL 500 ML ONE (12:14)
[2018-09-14] MEDS ORDERED: 0.9 % Sodium Chloride 500 ML ONE (12:14)
--- NOTE | 2018-09-14 12:27 | Pulmonology Progress Note ---
Date of Encounter: 09/14/18 Time of Encounter: 09:00 Assessment and Plan (1) Acute respiratory failure with hypoxia Current Visit: Yes Status: Acute Patient presenting with acute respiratory failure with hypoxia now complicated by bilateral airspace disease possible Pneumonia versus hydrostatic pulmonary edema. (2) GI bleed Current Visit: Yes Status: Acute I reviewed the CT scan abdomen pelvis. Dr. Montgomery interventional radiologist patient has significant Gastro renal shunt, spleno renal shunt which is leading the gastric versus most likely source of the bleeding in the gastric fundus. We will restart octreotide. To continue proton pump inhibitor. Patient is an ideal candidate for balloon occluded retrograde transvenous obliteration(BRTO). Qualifiers: GI bleed type/associated pathology: unspecified gastrointestinal hemorrhage type Qualified Code(s): K92.2 - Gastrointestinal hemorrhage, unspecified (3) Cirrhosis Current Visit: Yes Status: Acute Patient has alcoholics cirrhosis with questionable hepatitis C patient with meld around 25 with the most likely bleeding from gastric varices patient is high risk candidate with the TIPS procedure will pursue with BRTO. Qualifiers: Hepatic cirrhosis type: alcoholic cirrhosis Ascites presence: without ascites Qualified Code(s): K70.30 - Alcoholic cirrhosis of liver without ascites (4) Pneumonia Current Visit: Yes Status: Acute Patient has increased secretion from endotracheal tube will send for culture with Gram stain to continue broad-spectrum antibiotics. Qualifiers: Pneumonia type: due to unspecified organism Laterality: bilateral Lung location: unspecified part of lung Qualified Code(s): J18.9 - Pneumonia, unspecified organism (5) DVT prophylaxis Current Visit: Yes Status: Acute To continue with SCDs. Subjective Principal diagnosis: UGI bleed Objective PUL Vital signs: Last Vital Signs Temp 97.8 F 09/14/18 11:25 Pulse 60 09/14/18 12:00 Resp 19 09/14/18 12:00 BP 92/61 09/14/18 12:00 Pulse Ox 92 09/14/18 12:00 Ventilator Settings Ventilator Settings: Ventilator Settings, Last 8 Hours Ventilator Tidal Volume 580 Setting Ventilator Tidal Volume 580 Setting Ventilator Tidal Volume 580 Setting Ventilator Tidal Volume 580 Setting Ventilator Tidal Volume 580 Setting Ventilator Tidal Volume 580 Setting Ventilator Tidal Volume 580 Setting Ventilator Tidal Volume 580 Setting Ventilator Respiratory Rate 12 Setting Ventilator Respiratory Rate 12 Setting Ventilator Respiratory Rate 12 Setting Ventilator Respiratory Rate 12 Setting Ventilator Respiratory Rate 12 Setting Ventilator Respiratory Rate 12 Setting Ventilator Respiratory Rate 12 Setting Ventilator Respiratory Rate 12 Setting Actual Respiratory Rate 18 Actual Respiratory Rate 18 Actual Respiratory Rate 19 Actual Respiratory Rate 18 Actual Respiratory Rate 18 Actual Respiratory Rate 14 Actual Respiratory Rate 14 Positive End Expiratory 8 Pressure Positive End Expiratory 8 Pressure Positive End Expiratory 5 Pressure Positive End Expiratory 5 Pressure Positive End Expiratory 5 Pressure Positive End Expiratory 5 Pressure Positive End Expiratory 5 Pressure Positive End Expiratory 5 Pressure Peak Inspiratory Airway 27 Pressure Peak Inspiratory Airway 29 Pressure Peak Inspiratory Airway 8 Pressure Peak Inspiratory Airway 23 Pressure Peak Inspiratory Airway 18 Pressure Results - Laboratory Findings CBC and BMP: 09/14/18 03:04 09/14/18 03:04 ABG ABG pH 7.25 pH Units (7.32-7.45) L 09/14/18 05:15 ABG pCO2 41 mmHg (35-45) 09/14/18 05:15 ABG pO2 58 mmHg (85-104) L 09/14/18 05:15 ABG O2 Saturation 85 % (95-98) L 09/14/18 05:15 PT/INR, D-dimer PT 14.3 Seconds (9.4-12.1) H 09/14/18 09:39 Abnormal lab findings: Abnormal lab results WBC 13.3 K/mcL (4.3-11.1) H 09/14/18 03:04 RBC 2.84 M/mcL (4.19-5.50) L 09/14/18 03:04 Hgb 9.1 g/dL (12.9-16.9) L D 09/14/18 03:04 Hct 27.6 % (37.5-50.1) L 09/14/18 03:04 MCV 101.8 fL (83.0-100.0) H 09/13/18 03:36 MCH 34.2 pg (28.0-33.3) H 09/13/18 03:36 RDW 19.0 % (11.5-14.5) H 09/14/18 03:04 Plt Count 59 K/mcL (140-400) L 09/14/18 03:04 MPV 12.6 fL (9.4-12.4) H 09/13/18 03:36 8.0 % (0-4) H 09/14/18 03:04 4.0 % (0) H 09/12/18 06:33 11.2 K/mcL (1.6-8.9) H 09/14/18 03:04 5.9 K/mcL (0.6-4.6) H 09/12/18 06:33 2.0 K/mcL (0.0-1.3) H 09/12/18 06:33 Nucleated RBCs/100 WBC 19.6 /100 WBC (0) H 09/14/18 03:04 Decreased (Normal) L 09/14/18 03:04 Immature Plt Fraction 8.2 % (1.1-6.1) H 09/14/18 03:04 1+ (Not Present) A 09/14/18 03:04 1+ (Not Present) A 09/14/18 03:04 Present (Not Present) A 09/14/18 03:04 PT 14.3 Seconds (9.4-12.1) H 09/14/18 09:39 APTT 24.1 Seconds (26.0-36.0) L 09/11/18 05:18 ABG pH 7.25 pH Units (7.32-7.45) L 09/14/18 05:15 ABG pO2 58 mmHg (85-104) L 09/14/18 05:15 ABG HCO3 18 mEq/L (21-27) L 09/14/18 05:15 ABG Total CO2 19 mEq/L (20-26) L 09/14/18 05:15 ABG O2 Saturation 85 % (95-98) L 09/14/18 05:15 ABG Base Excess -9 mEq/L (-2 to 3) L 09/14/18 05:15 Sodium 149 mEq/L (136-145) H 09/14/18 03:04 Potassium 5.7 mEq/L (3.5-5.1) H D 09/11/18 06:07 Chloride 121 mEq/L (98-107) H 09/14/18 03:04 Carbon Dioxide 19 mEq/L (23-29) L 09/14/18 03:04 BUN 88 mg/dL (8-23) H 09/14/18 03:04 2.69 mg/dL (0.70-1.30) H 09/14/18 03:04 Est GFR ( Amer) 29 (> 60) L 09/14/18 03:04 Est GFR (Non-Af Amer) 24 (> 60) L 09/14/18 03:04 33 (6-26) H 09/14/18 03:04 Glucose 165 mg/dL (70-105) H 09/14/18 03:04 POC Glucose 170 mg/dL (70-99) H 09/14/18 11:28 339 (280-300) H 09/14/18 03:04 Calcium 6.8 mg/dL (8.6-10.3) L 09/14/18 03:04 4.2 mg/dL (0.3-1.0) H 09/14/18 03:04 3.0 mg/dL (0.0-0.2) H 09/14/18 03:04 AST 112 Units/L (13-39) H 09/14/18 03:04 ALT 112 Units/L (7-52) H 09/14/18 03:04 56 mcmol/L (16-53) H 09/10/18 11:19 0.09 ng/mL (< 0.04) H* 09/10/18 23:52 4.1 g/dL (6.4-8.9) L 09/14/18 03:04 2.4 g/dL (3.5-5.7) L 09/14/18 03:04 1.7 g/dL (2.4-3.5) L 09/14/18 03:04 Stool Occult Bld Scrn Positive (Negative) A 09/10/18 11:33 Crossmatch See Detail 09/10/18 11:19 - Clinical Findings Intake & Output: Intake & Output 09/13/18 09/14/18 09/14/18 23:59 07:59 15:59 Intake Total 865 / 3566 700 / 1001 301 / 1001 Output Total 200 / 1375 600 / 800 200 / 800 Balance 665 / 2191 100 / 201 101 / 201 Weight 117.2 kg Consult Discharge Plan - Plan Referrals: [facility] [Primary Care Provider] - Critical Care Time Critical Care Time: Yes Total Critical Care Time: 50 Attestation: I spent 50 minutes of Critical Care time with this patient. It involved decision making of high complexity to assess, manipulate, and support vital organ system failure and/or to prevent further life threatening deterioration of the patient's condition. The time involved in the performance of separately reportable procedures was not counted toward critical care time.
--- NOTE | 2018-09-14 14:16 | AcuteCare Surgery Consult Note ---
Date of Encounter: 09/13/18 Time of Encounter: 08:00 Assessment and Plan (1) Upper gastrointestinal hemorrhage Current Visit: Yes Status: Acute 68M with UGIB who continues to drop his hgb with known clot along the cardia of the stomach (per old endoscopy reports); I performed the EGD (please see provation note) and found an adherent clot in the same location as before. No active bleeding. i did call Dr. Dale and appreciated his assistance via the [employer] function. I did inject with 1cc of epinephrine x 4 around the clot per his recommendations. NPO IVF PPI gtt trend h/h repeat scope with Dr. Dale hold chemical dvt prophylaxis cares per ICU, GI History of Present Illness Consult date: 09/13/18 Reason for consult: other (upper GI bleed) History of present illness: 68M PMH significant for hep C, cirrhosis, esophageal varices, alcohol abuse (24 beers a day, hard liquor) who presented with an UGIB. He was scoped about [address] Sweet and found to have a small gastric varice. As of the last 2 days, he was scoped by Dr. Dale and found to have a semi adherent clot in the same area as the varice from 2 years prior. In addition he continues to drop his hgb giving concern of continued bleeding. he is currently intubated for airway control. Acute care surgery was consulted today because of an unfortunate series of events that rendered GI to be physically available. Past Med Surg Social Fam HX - Past Medical History Medical history: arthritis, cirrhosis, COPD, diabetes, GERD, GI bleed, hepatitis, hyperlipidemia, hypertension, kidney stones, liver disease, osteoporosis, other Additional medical history: basal cellcsacinoma right preauricular MOHS,skin cancer,depression/anxiety,cirrhosis,hepatitis C Psychiatric history: anxiety, bipolar, depression, PTSD, other - Past Surgical History Surgical History: other Additional surgical history: septoplasty/bilateral inferior turbinate,reductions/lesion removed from uvula and right tonsil fossa - Social History Smoking Status: Current every day smoker Smokeless Tobacco Status: No Alcohol use: heavy Drug use: prescription drug abuse - Family History Mother Living Status: Medications and Allergies Aspirin 81 mg PO DAILY 01/06/16 [History] Cholecalciferol (D-3) [Vitamin D] 3,000 unit PO DAILY 12/09/16 [History] Multivit-Min/FA/Lycopen/Lutein [A Thru Z Select Multivit Tab] 1 tab PO DAILY 12/09/16 [History] Oxycodone HCl [Oxaydo] 5 mg PO BID PRN 12/09/16 [History] traZODone [TraZODone] 50 mg PO HS PRN 12/09/16 [History] Insulin Glargine [Lantus] 35 unit SQ DAILY 09/10/18 [History] Lactulose [Enulose] 30 gm PO TID 09/10/18 [History] Losartan [Cozaar] 25 mg PO DAILY 09/10/18 [History] Morphine Sulfate [Arymo ER] 30 mg PO Q12H 09/10/18 [History] Naproxen [EC-Naprosyn] 500 mg PO BID 09/10/18 [History] Venlafaxine XR (24 HR) [Effexor XR] 150 mg PO DAILY 09/10/18 [History] Allergy/AdvReac Type Severity Reaction Status Date / Time sertraline [From Zoloft] Allergy Nausea Verified 04/08/18 14:04 Review of Systems All systems PM: 12 point ROS negative besides HPI findings General Surgery Exam Initial Vital Signs Temp Pulse Resp BP Pulse Ox 98.6 F 115 26 135/66 100 09/10/18 11:05 09/10/18 11:05 09/10/18 11:05 09/10/18 11:09/10/18 11:05 - General physical appearance no distress - Eyes PERRL - ENT normocephalic - Neck trachea midline, no lymphadectomy - Respiratory other (equal chest rise and fall) - Cardiovascular Cardiovascular exam: Present: RRR - Abdomen Abdomen general surgery: Present: soft, non tender - Integumentary Integumentary general surgery: Present: warm and dry - Neurologic Present: other (intubated, sedated) Exam Initial Vital Signs Temp Pulse Resp BP Pulse Ox 98.6 F 115 26 135/66 100 09/10/18 11:05 09/10/18 11:05 09/10/18 11:05 09/10/18 11:05 09/10/18 11:05 Results - Labs 09/14/18 03:04 09/14/18 03:04 Abnormal lab results WBC 13.3 K/mcL (4.3-11.1) H 09/14/18 03:04 RBC 2.84 M/mcL (4.19-5.50) L 09/14/18 03:04 Hgb 9.1 g/dL (12.9-16.9) L D 09/14/18 03:04 Hct 27.6 % (37.5-50.1) L 09/14/18 03:04 MCV 101.8 fL (83.0-100.0) H 09/13/18 03:36 MCH 34.2 pg (28.0-33.3) H 09/13/18 03:36 RDW 19.0 % (11.5-14.5) H 09/14/18 03:04 Plt Count 59 K/mcL (140-400) L 09/14/18 03:04 MPV 12.6 fL (9.4-12.4) H 09/13/18 03:36 8.0 % (0-4) H 09/14/18 03:04 4.0 % (0) H 09/12/18 06:33 11.2 K/mcL (1.6-8.9) H 09/14/18 03:04 5.9 K/mcL (0.6-4.6) H 09/12/18 06:33 2.0 K/mcL (0.0-1.3) H 09/12/18 06:33 Nucleated RBCs/100 WBC 19.6 /100 WBC (0) H 09/14/18 03:04 Decreased (Normal) L 09/14/18 03:04 Immature Plt Fraction 8.2 % (1.1-6.1) H 09/14/18 03:04 1+ (Not Present) A 09/14/18 03:04 1+ (Not Present) A 09/14/18 03:04 Present (Not Present) A 09/14/18 03:04 PT 14.3 Seconds (9.4-12.1) H 09/14/18 09:39 APTT 24.1 Seconds (26.0-36.0) L 09/11/18 05:18 ABG pH 7.25 pH Units (7.32-7.45) L 09/14/18 05:15 ABG pO2 58 mmHg (85-104) L 09/14/18 05:15 ABG HCO3 18 mEq/L (21-27) L 09/14/18 05:15 ABG Total CO2 19 mEq/L (20-26) L 09/14/18 05:15 ABG O2 Saturation 85 % (95-98) L 09/14/18 05:15 ABG Base Excess -9 mEq/L (-2 to 3) L 09/14/18 05:15 Sodium 149 mEq/L (136-145) H 09/14/18 03:04 Potassium 5.7 mEq/L (3.5-5.1) H D 09/11/18 06:07 Chloride 121 mEq/L (98-107) H 09/14/18 03:04 Carbon Dioxide 19 mEq/L (23-29) L 09/14/18 03:04 BUN 88 mg/dL (8-23) H 09/14/18 03:04 2.69 mg/dL (0.70-1.30) H 09/14/18 03:04 Est GFR ( Amer) 29 (> 60) L 09/14/18 03:04 Est GFR (Non-Af Amer) 24 (> 60) L 09/14/18 03:04 33 (6-26) H 09/14/18 03:04 Glucose 165 mg/dL (70-105) H 09/14/18 03:04 POC Glucose 170 mg/dL (70-99) H 09/14/18 11:28 339 (280-300) H 09/14/18 03:04 Calcium 6.8 mg/dL (8.6-10.3) L 09/14/18 03:04 4.2 mg/dL (0.3-1.0) H 09/14/18 03:04 3.0 mg/dL (0.0-0.2) H 09/14/18 03:04 AST 112 Units/L (13-39) H 09/14/18 03:04 ALT 112 Units/L (7-52) H 09/14/18 03:04 56 mcmol/L (16-53) H 09/10/18 11:19 0.09 ng/mL (< 0.04) H* 09/10/18 23:52 4.1 g/dL (6.4-8.9) L 09/14/18 03:04 2.4 g/dL (3.5-5.7) L 09/14/18 03:04 1.7 g/dL (2.4-3.5) L 09/14/18 03:04 Stool Occult Bld Scrn Positive (Negative) A 09/10/18 11:33 Crossmatch See Detail 09/10/18 11:19 Diabetes panel 09/14/18 Range/Units 03:04 Sodium 149 H (136-145) mEq/L Potassium 4.3 (3.5-5.1) mEq/L Chloride 121 H (98-107) mEq/L Carbon Dioxide 19 L (23-29) mEq/L BUN 88 H (8-23) mg/dL Creatinine 2.69 H (0.70-1.30) mg/dL Glucose 165 H (70-105) mg/dL Calcium 6.8 L (8.6-10.3) mg/dL AST 112 H (13-39) Units/L ALT 112 H (7-52) Units/L Alkaline Phosphatase 80 (34-104) Units/L Albumin 2.4 L (3.5-5.7) g/dL Calcium panel 09/14/18 Range/Units 03:04 Calcium 6.8 L (8.6-10.3) mg/dL Albumin 2.4 L (3.5-5.7) g/dL Pituitary panel 09/14/18 Range/Units 03:04 Sodium 149 H (136-145) mEq/L Potassium 4.3 (3.5-5.1) mEq/L Chloride 121 H (98-107) mEq/L Carbon Dioxide 19 L (23-29) mEq/L BUN 88 H (8-23) mg/dL Creatinine 2.69 H (0.70-1.30) mg/dL Glucose 165 H (70-105) mg/dL Calcium 6.8 L (8.6-10.3) mg/dL Adrenal panel 09/14/18 Range/Units 03:04 Sodium 149 H (136-145) mEq/L Potassium 4.3 (3.5-5.1) mEq/L Chloride 121 H (98-107) mEq/L Carbon Dioxide 19 L (23-29) mEq/L BUN 88 H (8-23) mg/dL Creatinine 2.69 H (0.70-1.30) mg/dL Glucose 165 H (70-105) mg/dL Calcium 6.8 L (8.6-10.3) mg/dL Total Bilirubin 4.2 H (0.3-1.0) mg/dL AST 112 H (13-39) Units/L ALT 112 H (7-52) Units/L Alkaline Phosphatase 80 (34-104) Units/L Albumin 2.4 L (3.5-5.7) g/dL All other labs normal. Consult Discharge Plan - Plan [facility]errals: [facility] [Primary Care Provider] -
[2018-09-14] MEDS ORDERED: Sodium Tetradecyl Sulfate 2 ML VIAL IVP ONE (14:45)
[2018-09-14] MEDS ORDERED: Isovue-300 50 ML VIAL IVP ONE ×3 (14:45)
--- NOTE | 2018-09-14 15:01 | Nephrology Consult Note ---
Date of Encounter: 09/14/18 Time of Encounter: 13:00 Assessment and Plan (1) SPIKE (acute kidney injury) Current Visit: Yes Status: Acute FeNa 0.2%. Pre-renal pathology in setting of volume depletion secondary to GI hemorrhage, intractable nausea and vomiting, poor PO intake, cirrhosis, and chronic NSAID use at home. Worsening creatinine of 1.56 on admission now at 2.69. - Renal dose antibiotics (Zosyn). - Good UOP. - Will start maintenance IVF 0.45% NaCl with 50 meq Bicarb at 125 mls/hr. - Avoid nephrotoxins. - Renal u/s pending. - If patient's renal function does not improve despite fluid support and improving BP status and if renal u/s is normal, might need to consider Hepatorenal syndrome. (2) Metabolic acidosis Current Visit: Yes Status: Acute Normal AG of 8. - 50 meq Bicarb in 0.45% NaCl 125 mls/hr. History of Present Illness - Chief Complaint Gi bleed - History of Present Illness Patient is a 68 YO M with a PMH of COPD, diabetes, GERD, GI bleed, hepatitis, hypertension, hyperlipidemia, arthritis, and osteoporosis that presented to the ER on 09/10/18 for concern for GI bleed. Was c/o several days of intractable nausea and vomiting, with production of dark, coffee-ground appearing emesis. Had lightheadedness and likely loss of consciousness over the last few days prior to presentation. History of alcohol abuse, consuming approximately 24 beers a day, as well as a half a fifth of vodka. Last drink 4-5 days prior to presentation. Demonstrated symptoms of alcohol withdrawal, requiring administration of multiple doses of valium. Was intubated. Hgb 6.3 on arrival. EGD showed large fresh clot seen in fundus along with old blood with no active bleeding. Repeat EGD next day again demonstrated large clot in fundus with suspicion bleeding source under fundal clot. Nephrology consulted due to worsening renal function. Losartan was held due to SPIKE. Past Med Surg Social Fam HX - Past Medical History Medical history: arthritis, cirrhosis, COPD, diabetes, GERD, GI bleed, hepatitis, hyperlipidemia, hypertension, kidney stones, liver disease, osteoporosis, other Additional medical history: basal cellcsacinoma right preauricular MOHS,skin cancer,depression/anxiety,cirrhosis,hepatitis C Psychiatric history: anxiety, bipolar, depression, PTSD, other - Past Surgical History Surgical History: other Additional surgical history: septoplasty/bilateral inferior turbinate,re ductions/lesion removed from uvula and right tonsil fossa - Social History Smoking Status: Current every day smoker Smokeless Tobacco Status: No Alcohol use: heavy Drug use: prescription drug abuse - Family History Mother Living Status: Medications and Allergies Aspirin 81 mg PO DAILY 01/06/16 [History] Cholecalciferol (D-3) [Vitamin D] 3,000 unit PO DAILY 12/09/16 [History] Multivit-Min/FA/Lycopen/Lutein [A Thru Z Select Multivit Tab] 1 tab PO DAILY 12/09/16 [History] Oxycodone HCl [Oxaydo] 5 mg PO BID PRN 12/09/16 [History] traZODone [TraZODone] 50 mg PO HS PRN 12/09/16 [History] Insulin Glargine [Lantus] 35 unit SQ DAILY 09/10/18 [History] Lactulose [Enulose] 30 gm PO TID 09/10/18 [History] Losartan [Cozaar] 25 mg PO DAILY 09/10/18 [History] Morphine Sulfate [Arymo ER] 30 mg PO Q12H 09/10/18 [History] Naproxen [EC-Naprosyn] 500 mg PO BID 09/10/18 [History] Venlafaxine XR (24 HR) [Effexor XR] 150 mg PO DAILY 09/10/18 [History] Allergy/AdvReac Type Severity Reaction Status Date / Time sertraline [From Zoloft] Allergy Nausea Verified 04/08/18 14:04 Review of Systems ROS unobtainable: due to endotracheal tube, due to mental status Exam - Vital Signs Vital signs: Initial Vital Signs Temp Pulse Resp BP Pulse Ox 98.6 F 115 26 135/66 100 09/10/18 11:05 09/10/18 11:05 09/10/18 11:05 09/10/18 11:05 09/10/18 11:05 Vital Signs - Last 8 Hours Temp Pulse Resp BP Pulse Ox 09/14/18 14:41 54 23 121/62 93 09/14/18 14:36 54 19 112/66 95 09/14/18 14:31 55 17 126/71 94 05/13/19 14:26 55 129/63 89 09/14/18 14:21 55 14 134/74 88 09/14/18 14:16 56 22 132/67 91 09/14/18 14:11 56 22 139/73 96 09/14/18 14:06 56 133/67 91 09/14/18 14:01 56 20 138/77 91 09/14/18 13:56 56 18 107/57 92 09/14/18 13:52 56 114/52 93 09/14/18 13:46 56 18 115/61 93 09/14/18 13:42 56 18 108/55 93 09/14/18 13:38 56 19 98/55 92 09/14/18 12:00 60 18 92/61 92 09/14/18 11:25 97.8 F 09/14/18 11:00 60 18 96/60 90 09/14/18 10:00 63 18 97/59 89 09/14/18 09:00 68 19 89/53 89 09/14/18 08:00 97.8 F 70 18 88/53 94 09/14/18 07:45 97.8 F 09/14/18 07:00 70 14 89/51 91 Intake and Output 09/13/18 09/14/18 09/14/18 23:59 07:59 15:59 Intake Total 865 / 3566 700 / 1101 401 / 1101 Output Total 200 / 1375 600 / 800 200 / 800 Balance 665 / 2191 100 / 301 201 / 301 Intake: IV Fluids 500 / 2851 700 / 1101 401 / 1101 PRECEDEX Premix 400 mcg In 100 100 / 300 100 / 200 100 / 200 ml @ 0.2 MCG/KG/HR 5.736 mls/hr IVC .[id number] [facility] Rx#: [id number] FentaNYL (PF) 1,000 MCG In 0.9 100 / 300 100 / 100 % Sodium Chloride 80 ML @ 50 MCG/HR 5 mls/hr IVC CONT [facility] Rx #:[id number] Protonix 40 MG In 0.9 % Sodium 100 / 500 200 / 300 100 / 300 Chloride (Mini-Bag +) 100 ML @ 20 mls/hr IVC .Q5H [facility] Rx#: [id number] Diprivan 1,000 mg In 100 ml @ 5 100 / 400 200 / 250 50 / 250 MCG/KG/MIN 3.441 mls/hr IVC . Q24H [facility] Rx#:[id number] Zosyn 3.375 GM In 0.9 % Sodium 100 / 300 100 / 200 100 / 200 Chloride (Mini-Bag +) 100 ML @ 25 mls/hr IVPB Q8HR [facility] Rx#: [id number] Vitamin B-1 100 MG In Dextrose 51 / 51 5% 50 ML @ 50 mls/hr IVPB DAILY [facility] Rx#:[id number] Oral 0 / 0 Blood Product 365 / 715 Rbcs Leuko Poor As-1 Unit 365 / 365 [id number] Output: Catheter 200 / 1375 600 / 800 200 / 800 Other: Weight 117.2 kg Blood Glucose* 128 155 170 Patient Weight 09/14/18 23:59 Weight 117.2 kg - General Appearance General appearance: well-developed, appears started age, intubated EENT: mucous membranes moist Neck: no JVD Respiratory: clear Cardiology: no murmurs, no rub, no gallops, regular rate, regular rhythm, normal S1, normal S2 Additional Comments: +2 Pitting edema of LE b/l. Pulses +2/4 and symmetrical in LE. Gastrointestinal: normoactive bowel sounds, no tenderness, no guarding, no organomegaly, no masses Additional Comments: No fluid shifting. Integumentary: warm and dry Neurologic: no asterixis Musculoskeletal: no deformities, no cyanosis, no clubbing Additional Comments: Intubated. Results - Lab Results 09/14/18 03:04 09/14/18 03:04 Most recent lab results 09/14/18 09/14/18 03:04 05:15 ABG pH 7.25 L ABG pCO2 41 ABG pO2 58 L ABG HCO3 18 L ABG O2 Saturation 85 L Calcium 6.8 L Consult Discharge Plan - Plan [facility]errals: [facility] [Primary Care Provider] -
--- NOTE | 2018-09-14 15:03 | IR Procedure Note ---
Date of procedure: 09/14/18 Consent Obtained: Verbal consent Timeout: Correct patient and procedure verified, Correct site verified, Time out performed, Skin prep completed Local anesthetic: Lidocaine 1% Indications: Gastric varices Procedure Performed: BRTO Was there an clinical assistant professor present: No Site/Technique: rt femoral vein access, splenorenal shunt embolized with coils, sotradechol Results/Findings: adequate obliteration of varices Estimated blood loss (cc): 2 Complications: None; Tolerated procedure well Post Procedure Treatment Plan: dc to ICU Specimen: none
[2018-09-14] MEDS ORDERED: *HR* Heparin 5,000 UNIT/ML VIAL ONE (17:14)
--- NOTE | 2018-09-14 17:43 | Procedure Note ---
<Miguel Lima - Last Filed: 09/14/18 17:40> Date of procedure: 09/14/18 Pre-op diagnosis: Acute renal failure Post-op diagnosis: same Procedure: A time-out was completed verifying correct patient, procedure, site, positioning, and special equipment if applicable. The patient was placed in a dependent position appropriate for temporary dialysis catheter placement based on the vein to be cannulated. The patients right neck was prepped and draped in sterile fashion. A triple lumen 12.[place] catheter was introduced into the the right internal jugular vein using the Seldinger technique and under ultrasound guidance. The catheter was threaded smoothly over the guide wire and appropriate blood return was obtained. Each lumen of the catheter was evacuated of air and flushed with sterile saline. The catheter was then sutured in place to the skin and a sterile dressing applied. Perfusion to the extremity distal to the point of catheter insertion was checked and found to be adequate. Dr Rossi was present for the entire procedure. Post procedure cxr ordered. Anesthesia: IV sedation Surgeon: Miguel Lima Was there an facilities maintenance assistant present: Yes General Counsel: Jack Rossi Estimated blood loss (cc): 5 Specimen: N/A Pathology: none sent Condition: critical Disposition: ICU <Jack Rossi - Last Filed: 09/14/18 18:23> Procedure: I was present during the entire procedure assisted to Dr. Lima and critical portions of the procedure to 15 cm trialysis catheter was inserted into right internal jugular vein.
[2018-09-14] MEDS: Sodium Bicarbonate 50 MEQ in 0.45 % Sodium Chloride 1,000 ML IVC SCH (18:15)
[2018-09-14] MEDS ORDERED: 0.9 % Sodium Chloride 1,000 ML IVC ONE (23:35)
[2018-09-14] MEDS ORDERED: 0.9 % Sodium Chloride 1,000 ML ONE (23:36)
[2018-09-15] LABS: Hemoglobin 8.6 g/dL (12.9-16.9)
[2018-09-15] MEDS: Norepinephrine 4 MG in D5% in Water 250 ML IVC SCH ×3 (00:01→15:35)
[2018-09-15 00:06] LABS: INR 1.3; Prothrombin Time 14.8 Seconds (9.4-12.1)
[2018-09-15 00:09] LABS: Activated Partial Thrombo Time 34.5 Seconds (26.0-36.0)
[2018-09-15 00:26] LABS: ABG Base Excess -10 mEq/L (-2 to 3); ABG HCO3 17 mEq/L (21-27); ABG Oxygen Saturation 96 % (95-98); ABG PCO2 45 mmHg (35-45); ABG PH 7.19 pH Units (7.32-7.45); ABG PO2 102 mmHg (85-104); ABG TCO2 19 mEq/L (20-26); Blood Gas Modality PRVC; Blood Gas PEEP 8 cm H2O; Blood Gas Respiration Rate 18; Blood Gas VT 580 cc
[2018-09-15] MEDS ORDERED: Sodium Bicarbonate 50 MEQ/50 ML VIAL ONE (00:43)
[2018-09-15] MEDS ORDERED: Levofloxacin 750 MG/150 ML 750 MG/150 ML BAG IVPB SCH (01:00)
[2018-09-15] MEDS ORDERED: Vancomycin 1,750 MG in 0.9 % Sodium Chloride 250 ML IVPB SCH (01:00)
[2018-09-15] MEDS ORDERED: Sodium Bicarbonate 50 MEQ/50 ML VIAL IVP ONE (01:08)
[2018-09-15] MEDS: Albumin 25% 25gram/100mL 25 GM/100 ML IV.SOLN IVC SCH ×2 (01:32→03:02)
--- NOTE | 2018-09-15 01:49 | Event Note ---
<Alexia Patel - Last Filed: 09/15/18 04:12> Date of Encounter: 09/15/18 Time of Encounter: 01:19 Nursing staff reported that patient had sudden drop in BP, from 110s systolic down to low 70s. Patient was examined at the bedside; physical exam was remarkable only for mild abdominal distention. 1L fluid bolus was administered, with minimal improvement in blood pressure. Concern for sepsis vs. acute GI hemorrhage. Orders placed for levophed, 2 units PRBC, albumin, stat chest xray, and stat laboratory studies. Repeat blood cultures were obtained, and antibiotic coverage was broadened to include vancomycin and levaquin. Stat ABG was ordered, and demonstrated pH 7.19, PCO2 45, PO2 102, and HCO3 17. Patient was adm inistered 1 amp of bicarb, with plans to repeat ABG ~0400. <Sudheer Hahn - Last Filed: 09/15/18 06:44> Date of Encounter: 09/15/18 I was notified of the above findings and clinical concerns for both sepsis and/or significant GI hemorrhage. I evaluated patient and contacted Dr. Rossi and discussed the case with him as well. Treatment was rendered as a jin, and I discussed this case repeatedly with Dr. Patel and reassessed the patient multiple times throughout the night.
[2018-09-15] MEDS: Sodium Bicarbonate 50 MEQ in 0.45 % Sodium Chloride 1,000 ML IVC SCH ×3 (02:33→19:33)
[2018-09-15] MEDS: Dexmedetomidine HCl 400 MCG/100 ML MLS IVC SCH ×5 (03:02→21:25)
[2018-09-15] MEDS ORDERED: 0.9 % Sodium Chloride 250 ML ONE (03:29)
[2018-09-15 03:41] LABS: Hematocrit 24.7 % (37.5-50.1); Mean Corpuscular Volume 99.6 fL (83.0-100.0); Red Blood Count 2.48 M/mcL (4.19-5.50)
[2018-09-15 03:43] LABS: Immature Platelets 10.5 % (1.1-6.1); Mean Corpuscular HGB Conc 32.4 g/dL (31.6-35.5); Mean Corpuscular Hemoglobin 32.3 pg (28.0-33.3); Mean Platelet Volume 12.7 fL (9.4-12.4); Nucleated Red Blood Cells 57.8 /100 WBC (0); Red Cell Distribution Width 19.5 % (11.5-14.5)
[2018-09-15 03:45] LABS: Platelet Count 55 K/mcL (140-400)
[2018-09-15 04:01] LABS: Calcium 6.9 mg/dL (8.6-10.3); Magnesium 3.2 mg/dL (1.6-2.6); Phosphorous 6.9 mg/dL (2.7-4.5); Potassium 4.6 mEq/L (3.5-5.1)
[2018-09-15 04:22] LABS: Anisocytosis 2+ (Not Present); Lymphocytes # 0.8 K/mcL (0.6-4.6); Microcytosis Present (Not Present); Monocytes # 0.3 K/mcL (0.0-1.3); Neutrophils # 6.9 K/mcL (1.6-8.9); Platelet Estimate Decreased (Normal); Polychromasia 2+ (Not Present)
--- NOTE | 2018-09-15 04:36 | Pulmonology Progress Note ---
Date of Encounter: 09/15/18 Time of Encounter: 04:30 Assessment and Plan (1) Acute respiratory failure with hypoxia Current Visit: Yes Status: Acute Patient presenting with acute respiratory failure with hypoxia now complicated by bilateral airspace disease possible Pneumonia versus hydrostatic pulmonary edema. 09/15 related fluid removal through dialysis for fluid patient hydrostatic pulmonary edema gets better (2) GI bleed Current Visit: Yes Status: Acute I reviewed the CT scan abdomen pelvis. Dr. Montgomery interventional radiologist patient has significant Gastro renal shunt, spleno renal shunt which is leading the gastric versus most likely source of the bleeding in the gastric fundus. We will restart octreotide. To continue proton pump inhibitor. Patient is an idea l candidate for balloon occluded retrograde transvenous obliteration(BRTO). 09/15 patient does not show any clinical evidence of active GI bleed patient is supported by balloon occluded retrograde transvenous obliteration. Qualifiers: GI bleed type/associated pathology: unspecified gastrointestinal hemorrhage type Qualified Code(s): K92.2 - Gastrointestinal hemorrhage, unspecified (3) Cirrhosis Current Visit: Yes Status: Acute Patient has alcoholics cirrhosis with questionable hepatitis C patient with meld around 25 with the most likely bleeding from gastric varices patient is high risk candidate with the TIPS procedure will pursue with BRTO. 09/15 Patient had BRTO. Qualifiers: Hepatic cirrhosis type: alcoholic cirrhosis Ascites presence: without ascites Qualified Code(s): K70.30 - Alcoholic cirrhosis of liver without ascites (4) GI bleed Current Visit: Yes Status: Acute Patient does not exhibit any signs of GI bleed to continue to trend hemoglobin. Qualifiers: GI bleed type/associated pathology: unspecified gastrointestinal hemorrhage type Qualified Code(s): K92.2 - Gastrointestinal hemorrhage, unspecified (5) Pneumonia Current Visit: Yes Status: Acute Patient has increased secretion from endotracheal tube will send for culture with Gram stain to continue broad-spectrum antibiotics. Qualifiers: Pneumonia type: due to unspecified organism Laterality: bilateral Lung location: unspecified part of lung Qualified Code(s): J18.9 - Pneumonia, unspecified organism (6) DVT prophylaxis Current Visit: Yes Status: Acute To continue with SCDs. Subjective Principal diagnosis: UGI bleed Interval history: Patient had balloon occluded retrograde transvenous obliteration of gastrorenal shunt. Patient bleed from gastritis severe sepsis decently controlled. Patient liver function is deranged patient will get dialysis today. Objective PUL Vital signs: Last Vital Signs Temp 99.1 F 09/15/18 04:20 Pulse 81 09/15/18 03:48 Resp 22 09/15/18 03:48 BP 98/64 09/15/18 03:48 Pulse Ox 100 09/15/18 03:48 General appearance: no acute distress Effort: mildly labored Auscultation: bilateral: diminished breath sounds (Basilar) Cardiovascular: regular rate and rhythm Gastrointestinal: hypoactive bowel sounds Integumentary: normal Extremities: no edema unable to assess due to mental status other Ventilator Settings Ventilator Settings: Ventilator Settings, Last 8 Hours Ventilator Tidal Volume 580 Setting Ventilator Tidal Volume 580 Setting Ventilator Tidal Volume 580 Setting Ventilator Tidal Volume 580 Setting Ventilator Tidal Volume 580 Setting Ventilator Tidal Volume 580 Setting Ventilator Tidal Volume 580 Setting Ventilator Tidal Volume 580 Setting Ventilator Tidal Volume 580 Setting Ventilator Respiratory Rate 18 Setting Ventilator Respiratory Rate 18 Setting Ventilator Respiratory Rate 18 Setting Ventilator Respiratory Rate 18 Setting Ventilator Respiratory Rate 18 Setting Ventilator Respiratory Rate 18 Setting Ventilator Respiratory Rate 18 Setting Ventilator Respiratory Rate 18 Setting Ventilator Respiratory Rate 18 Setting Actual Respiratory Rate 22 Actual Respiratory Rate 21 Actual Respiratory Rate 22 Actual Respiratory Rate 22 Actual Respiratory Rate 23 Actual Respiratory Rate 23 Actual Respiratory Rate 18 Actual Respiratory Rate 26 Positive End Expiratory 8 Pressure Positive End Expiratory 8 Pressure Positive End Expiratory 8 Pressure Positive End Expiratory 8 Pressure Positive End Expiratory 8 Pressure Positive End Expiratory 8 Pressure Positive End Expiratory 8 Pressure Positive End Expiratory 8 Pressure Positive End Expiratory 8 Pressure Peak Inspiratory Airway 25 Pressure Peak Inspiratory Airway 26 Pressure Peak Inspiratory Airway 24 Pressure Peak Inspiratory Airway 27 Pressure Peak Inspiratory Airway 29 Pressure Peak Inspiratory Airway 29 Pressure Peak Inspiratory Airway 28 Pressure Peak Inspiratory Airway 19 Pressure Results - Laboratory Findings CBC and BMP: 09/15/18 11:30 09/15/18 03:25 ABG ABG pH 7.19 pH Units (7.32-7.45) L* 09/15/18 00:18 ABG pCO2 45 mmHg (35-45) 09/15/18 00:18 ABG pO2 102 mmHg (85-104) 09/15/18 00:18 ABG O2 Saturation 96 % (95-98) 09/15/18 00:18 PT/INR, D-dimer PT 14.8 Seconds (9.4-12.1) H 09/14/18 23:50 Abnormal lab findings: Abnormal lab results WBC 13.3 K/mcL (4.3-11.1) H 09/14/18 03:04 RBC 2.48 M/mcL (4.19-5.50) L 09/15/18 03:25 Hgb 8.0 g/dL (12.9-16.9) L 09/15/18 03:25 Hct 24.7 % (37.5-50.1) L 09/15/18 03:25 MCV 101.8 fL (83.0-100.0) H 09/13/18 03:36 MCH 34.2 pg (28.0-33.3) H 09/13/18 03:36 RDW 19.5 % (11.5-14.5) H 09/15/18 03:25 Plt Count 55 K/mcL (140-400) L 09/15/18 03:25 MPV 12.7 fL (9.4-12.4) H 09/15/18 03:25 38.0 % (0-4) H 09/15/18 03:25 4.0 % (0) H 09/12/18 06:33 11.2 K/mcL (1.6-8.9) H 09/14/18 03:04 5.9 K/mcL (0.6-4.6) H 09/12/18 06:33 2.0 K/mcL (0.0-1.3) H 09/12/18 06:33 Nucleated RBCs/100 WBC 57.8 /100 WBC (0) H 09/15/18 03:25 Decreased (Normal) L 09/15/18 03:25 Immature Plt Fraction 10.5 % (1.1-6.1) H 09/15/18 03:25 2+ (Not Present) A 09/15/18 03:25 2+ (Not Present) A 09/15/18 03:25 Present (Not Present) A 09/15/18 03:25 Present (Not Present) A 09/14/18 03:04 PT 14.8 Seconds (9.4-12.1) H 09/14/18 23:50 APTT 24.1 Seconds (26.0-36.0) L 09/11/18 05:18 ABG pH 7.19 pH Units (7.32-7.45) L* 09/15/18 00:18 ABG pO2 58 mmHg (85-104) L 09/14/18 05:15 ABG HCO3 17 mEq/L (21-27) L 09/15/18 00:18 ABG Total CO2 19 mEq/L (20-26) L 09/15/18 00:18 ABG O2 Saturation 85 % (95-98) L 09/14/18 05:15 ABG Base Excess -10 mEq/L (-2 to 3) L 09/15/18 00:18 Sodium 150 mEq/L (136-145) H 09/15/18 03:25 Potassium 5.7 mEq/L (3.5-5.1) H D 09/11/18 06:07 Chloride 120 mEq/L (98-107) H 09/15/18 03:25 Carbon Dioxide 19 mEq/L (23-29) L 09/15/18 03:25 BUN 97 mg/dL (8-23) H 09/15/18 03:25 3.16 mg/dL (0.70-1.30) H 09/15/18 03:25 Est GFR ( Amer) 24 (> 60) L 09/15/18 03:25 Est GFR (Non-Af Amer) 20 (> 60) L 09/15/18 03:25 31 (6-26) H 09/15/18 03:25 Glucose 131 mg/dL (70-105) H 09/15/18 03:25 POC Glucose 136 mg/dL (70-99) H 09/15/18 03:27 342 (280-300) H 09/15/18 03:25 Lactic Acid 2.4 mmol/L (0.5-2.2) H 09/15/18 03:25 Calcium 6.9 mg/dL (8.6-10.3) L 09/15/18 03:25 Phosphorus 6.9 mg/dL (2.7-4.5) H 09/15/18 03:25 Magnesium 3.2 mg/dL (1.6-2.6) H 09/15/18 03:25 4.2 mg/dL (0.3-1.0) H 09/14/18 03:04 3.0 mg/dL (0.0-0.2) H 09/14/18 03:04 AST 112 Units/L (13-39) H 09/14/18 03:04 ALT 112 Units/L (7-52) H 09/14/18 03:04 56 mcmol/L (16-53) H 09/10/18 11:19 0.09 ng/mL (< 0.04) H* 09/10/18 23:52 4.1 g/dL (6.4-8.9) L 09/14/18 03:04 2.4 g/dL (3.5-5.7) L 09/14/18 03:04 1.7 g/dL (2.4-3.5) L 09/14/18 03:04 Stool Occult Bld Scrn Positive (Negative) A 09/10/18 11:33 Crossmatch See Detail 09/14/18 23:50 - Microbiology Findings Microbiology Findings: Microbiology, Last 48 Hours 09/15/18 02:16 Blood Culture - Preliminary Peripheral Venipuncture Culture is incubating and being continuously monitored for growth. Final report to follow. 09/15/18 02:16 Blood Culture - Preliminary Peripheral Venipuncture Culture is incubating and being continuously monitored for growth. Final report to follow. 09/14/18 21:00 Sputum Culture - Preliminary Aspirate - Clinical Findings Intake & Output: Intake & Output 09/14/18 09/14/18 09/15/18 15:59 23:59 07:59 Intake Total 501 / 1905 704 / 1905 1250 / 1250 Output Total 200 / 1150 350 / 1150 200 / 200 Balance 301 / 755 354 / 755 1050 / 1050 Consult Discharge Plan - Plan [facility]: [facility] [Primary Care Provider] -
[2018-09-15] MEDS: Ipratropium/Albuterol Neb 3 ML IH SCH ×6 (04:47→23:42)
[2018-09-15] MEDS: Insulin LISPRO 300 UNITS/3 ML VIAL SQ SCH ×6 (04:58→23:46)
[2018-09-15] MEDS: Artificial Tears SOLN 15 ML BOTTLE BOTH EYES SCH ×6 (04:58→23:46)
[2018-09-15] MEDS: Octreotide 400 MCG in 0.9 % Sodium Chloride 100 ML IVC SCH ×3 (04:58→20:57)
[2018-09-15] MEDS: Pantoprazole 40 MG in 0.9 % Sodium Chloride Mini Bag 100 ML IVC SCH ×4 (05:32→20:58)
[2018-09-15] MEDS: FentaNYL (PF) 1,000 MCG in 0.9 % Sodium Chloride 80 ML IVC SCH ×3 (05:37→20:16)
[2018-09-15] MEDS: Chlorhexidine Rinse 15 ML MOUTHWASH MM SCH ×2 (08:50→19:34)
[2018-09-15] MEDS: Piperacillin/Tazobactam 3.375 GM in 0.9 % Sodium Chloride Mini Bag 100 ML IVPB SCH ×2 (08:50→19:34)
[2018-09-15] MEDS: Lactulose Oral Soln 20 GM/30 ML UDC PO SCH ×3 (08:50→19:34)
[2018-09-15] MEDS: Thiamine (B-1) 100 MG in D5% in Water 50 ML IVPB SCH (08:50)
[2018-09-15] MEDS ORDERED: 0.9 % Sodium Chloride 250 ML IVC PRN (10:36)
[2018-09-15] MEDS ORDERED: *HR* Heparin 10,000 UNIT/10 ML VIAL IV PRN (10:36)
[2018-09-15] MEDS ORDERED: 0.9 % Sodium Chloride 1,000 ML PRIME SCH (10:45)
[2018-09-15 11:47] LABS: Hematocrit 29.4 % (37.5-50.1); Hemoglobin 9.4 g/dL (12.9-16.9)
[2018-09-15 12:03] LABS: Albumin 2.7 g/dL (3.5-5.7); Albumin/Globulin Ratio 1.8 (1.1-2.2); Bilirubin,Direct 4.1 mg/dL (0.0-0.2); Bilirubin,Indirect 1.5 mg/dL (0.0-1.2); Bilirubin,Total 5.6 mg/dL (0.3-1.0); Globulin 1.5 g/dL (2.4-3.5); Total Protein 4.2 g/dL (6.4-8.9)
[2018-09-15 12:10] LABS: Hepatitis B Surface Antibody < 3.10 mIU/mL
[2018-09-15 12:21] LABS: Hepatitis B Surface Antigen Nonreactive (Nonreactive)
--- NOTE | 2018-09-15 12:39 | Nephrology Progress Note ---
Date of Encounter: 09/15/18 Time of Encounter: 12:39 - Assessment and Plan (1) SPIKE (acute kidney injury) Current Visit: Yes Status: Acute The patient has multifactorial acute kidney injury and receive additional contrast dye during his interventional radiology procedure yesterday. His renal function continues to worsen he has a metabolic acidosis as well as azotemia. We will start hemodialysis. We will attempt intermittent hemodialysis. The patient was seen while on dialysis, however he did not tolerate it well per report. For the patient's metabolic acidosis will continue his sodium bicarbonate drip. Agree with hypotonic solution for his mild hypernatremia. Patient remains intubated and critically ill. 31 minutes in the care of this critically ill patient. (2) Cirrhosis Current Visit: Yes Status: Acute Qualifiers: Hepatic cirrhosis type: other cirrhosis Qualified Code(s): K74.69 - Other cirrhosis of liver (3) Esophageal varices Current Visit: Yes Status: Acute Qualifiers: Esophageal varices type: unspecified type Esophageal varices bleeding: with bleeding Qualified Code(s): I85.01 - Esophageal varices with bleeding (4) GI bleed Current Visit: Yes Status: Acute Qualifiers: GI bleed type/associated pathology: unspecified gastrointestinal hemorrhage type Qualified Code(s): K92.2 - Gastrointestinal hemorrhage, unspecified (5) Anemia Current Visit: No Status: Acute Qualifiers: Anemia type: unspecified type Qualified Code(s): D64.9 - Anemia, unspecified (6) DM (diabetes mellitus), type 2 Current Visit: No Status: Chronic Qualifiers: Diabetes mellitus long-term insulin use: without long-term use Diabetes mellitus complication status: without complication Qualified Code(s): E11.9 - Type 2 diabetes mellitus without complications (7) Hypertension Current Visit: No Status: Chronic Qualifiers: Hypertension type: essential hypertension Qualified Code(s): I10 - Essential (primary) hypertension (8) Obesity (BMI 30-39.9) Current Visit: No Status: Chronic Subjective Principal diagnosis: UGI bleed Interval history: Patient with worsening multifactorial SPIKE. He is intubated and critically ill. ROS is unobtainable. Objective - Vital Signs Vital signs: Vital Signs Temp Pulse Resp BP Pulse Ox 09/15/18 12:00 96.9 F L 78 20 98/56 95 09/15/18 11:36 97 09/15/18 11:00 96.9 F L 76 20 97/60 96 09/15/18 10:00 78 22 111/73 98 09/15/18 09:14 20 102/67 98 09/15/18 09:00 80 26 113/66 97 09/15/18 08:33 97.5 F L 09/15/18 08:00 97.5 F L 80 20 110/69 98 09/15/18 07:38 19 109/67 98 09/15/18 07:00 80 21 112/69 98 09/15/18 06:50 80 22 114/75 98 09/15/18 06:00 82 21 114/69 98 09/15/18 05:00 82 21 109/72 100 09/15/18 04:50 80 24 104/71 100 09/15/18 04:48 82 26 102/61 100 09/15/18 04:35 82 21 92/63 09/15/18 04:20 99.1 F 09/15/18 04:00 82 21 92/63 100 09/15/18 03:48 99.1 F 81 22 98/64 100 09/15/18 03:33 83 24 86/63 66 09/15/18 03:00 82 22 98/64 100 09/15/18 02:00 83 22 76/61 98 09/15/18 01:42 23 79/61 97 09/15/18 01:00 82 22 96/68 99 09/15/18 00:05 78 09/15/18 00:00 97.7 F 76 22 86/55 97 09/14/18 23:06 23 74/53 94 09/14/18 23:00 76 23 74/53 93 09/14/18 22:00 75 18 89/61 92 09/14/18 21:00 75 26 116/64 96 09/14/18 20:11 75 09/14/18 20:05 25 117/66 91 09/14/18 20:00 76 27 118/72 96 09/14/18 19:00 77 28 114/64 97 09/14/18 18:00 67 27 114/72 90 09/14/18 17:05 27 87/55 94 09/14/18 17:00 58 18 87/55 94 09/14/18 16:00 54 18 88/56 95 09/14/18 15:40 23 101/61 98 09/14/18 15:00 54 09/14/18 14:41 54 23 121/62 93 09/14/18 14:36 54 19 112/66 95 09/14/18 14:31 55 17 126/71 94 09/14/18 14:26 55 129/63 89 09/14/18 14:21 55 14 134/74 88 09/14/18 14:16 56 22 132/67 91 09/14/18 14:11 56 22 139/73 96 09/14/18 14:06 56 133/67 91 09/14/18 14:01 56 20 138/77 91 09/14/18 13:56 56 18 107/57 92 09/14/18 13:52 56 114/52 93 09/14/18 13:46 56 18 115/61 93 09/14/18 13:42 56 18 108/55 93 09/14/18 13:38 56 19 98/55 92 Intake and Output 09/14/18 09/15/18 09/15/18 23:59 07:59 15:59 Intake Total 704 / 1905 3958 / 5502 1544 / 5502 Output Total 350 / 1150 200 / 300 100 / 300 Balance 354 / 755 3758 / 5202 1444 / 5202 Intake: IV Fluids 704 / 1905 3258 / 4802 1544 / 4802 0.9 % Sodium Chloride 1,000 ML 1000 / 1000 @ 999 mls/hr IVC .Q1H1M ONE Rx# :[id number] Flexbumin 25 gm In 100 ml @ 60 200 / 200 mls/hr IVC .Q1H40M [facility] Rx#: [id number] PRECEDEX Premix 400 mcg In 100 200 / 400 200 / 300 100 / 300 ml @ 0.2 MCG/KG/HR 5.736 mls/hr IVC .[id number] Y[facility]NA Rx#: [id number] FentaNYL (PF) 1,000 MCG In 0.9 100 / 300 100 / 100 % Sodium Chloride 80 ML @ 50 MCG/HR 5 mls/hr IVC CONT [facility]NA Rx #:[id number] Levophed 4 MG In Dextrose 5% 254 / 444 190 / 444 250 ML @ 8 MCG/MIN 30.48 mls/hr IVC CONT YANNA Rx#:[id number] SandoSTATIN 400 MCG In 0.9 % 104 / 104 104 / 208 104 / 208 Sodium Chloride 100 ML @ 50 MCG /HR 13 mls/hr IVC .Q8H [facility]NA Rx#: [id number] Protonix 40 MG In 0.9 % Sodium 200 / 500 100 / 200 100 / 200 Chloride (Mini-Bag +) 100 ML @ 20 mls/hr IVC .Q5H [facility]NA Rx#: [id number] Sodium Bicarbonate 50 MEQ In 0. 1050 / 2100 1050 / 2100 45% Sodium Chloride 1000 Ml 1000 Ml 1,000 ML @ 125 mls/hr IVC .Q8H24M [facility] Rx#:[id number] Levaquin Premix 750mg/150 mL 150 / 150 750 mg In 150 ml @ 100 mls/hr IVPB Q48H [facility] Rx#:[id number] Zosyn 3.375 GM In 0.9 % Sodium 100 / 300 100 / 100 Chloride (Mini-Bag +) 100 ML @ 25 mls/hr IVPB Q8HR [facility]NA Rx#: [id number] Blood Product 700 / 700 Rbcs Leuko Poor As-1 Unit 350 / 350 [id number] Rbcs Leuko Poor As-1 Unit 350 / 350 [id number] Output: Catheter 350 / 1150 200 / 300 100 / 300 Other: Weight 110.7 kg Blood Glucose* 163 136 183 Patient Weight 09/15/18 23:59 Weight 110.7 kg - General Appearance General appearance: Present: well-developed, well-nourished, sedated on ventilator, intubated EENT: Present: ATNC Neck: Present: supple Cardiology: Present: edema, regular rate Dialysis Vascular Access: Venous Catheter Integumentary: Present: warm and dry Additional Comments: intubated Musculoskeletal: Present: no cyanosis - Lab 09/16/18 03:15 09/16/18 03:15 Most recent lab results 09/15/18 03:25 Calcium 6.9 L Phosphorus 6.9 H Magnesium 3.2 H Consult Discharge Plan - Plan [facility]errals: [facility] [Primary Care Provider] -
[2018-09-15] MEDS ORDERED: *HR* Heparin 5,000 UNIT/ML VIAL ONE (15:06)
--- NOTE | 2018-09-15 16:14 | Procedure Note ---
Date of procedure: 09/15/18 Pre-op diagnosis: Hemodialysis catheter replacement Post-op diagnosis: same Procedure: Date: 09/15/18 Time: 1600 Indication: HD catheter replacement Resident: Yaakov Torres DO Attending: Dr. Enid Jones time-out was completed verifying correct patient, procedure, site, positioning, and special equipment if applicable. The patient was placed in a dependent position appropriate for HD line placement based on the vein to be cannulated. The patients right neck was prepped and draped in sterile fashion. 1. A guide wire was threaded through the current HD catheter. The old HD catheter was removed. Then the replacement triple lumen 12 [place]ese HD catheter was introduced into the the RIJ . The catheter was threaded smoothly over the guide wire and appropriate blood return was obtained. Each lumen of the catheter was evacuated of air and flushed with sterile saline. The catheter was then sutured in place to the skin and a sterile dressing applied. Perfusion to the extremity distal to the point of catheter insertion was checked and found to be adequate. Dr. Lima was present for the entire procedure. Estimated Blood Loss: <5ml The patient tolerated the procedure well and there were no complications. Anesthesia: none Was there an public relations assistant present: Yes Skin Tanner: Miguel Lima Estimated blood loss (cc): 5 Specimen: N/A Pathology: none sent Disposition: no change
[2018-09-15 16:22] LABS: ABG Base Excess -9 mEq/L (-2 to 3); ABG HCO3 17 mEq/L (21-27); ABG Oxygen Saturation 99 % (95-98); ABG PCO2 41 mmHg (35-45); ABG PH 7.24 pH Units (7.32-7.45); ABG PO2 137 mmHg (85-104); ABG TCO2 19 mEq/L (20-26); Blood Gas Modality ASSIST CONTROL; Blood Gas PEEP 8 cm H2O; Blood Gas Respiration Rate 18; Blood Gas VT 580 cc
[2018-09-16] MEDS: Pantoprazole 40 MG in 0.9 % Sodium Chloride Mini Bag 100 ML IVC SCH ×2 (00:33→05:50)
[2018-09-16] MEDS: Dexmedetomidine HCl 400 MCG/100 ML MLS IVC SCH ×2 (02:46→10:10)
[2018-09-16] MEDS: FentaNYL (PF) 1,000 MCG in 0.9 % Sodium Chloride 80 ML IVC SCH ×2 (02:49→14:56)
[2018-09-16 03:46] LABS: Nucleated Red Blood Cells 12.4 /100 WBC (0)
[2018-09-16 03:48] LABS: Calcium 6.8 mg/dL (8.6-10.3); Hemoglobin 9.3 g/dL (12.9-16.9); Immature Platelets 17.3 % (1.1-6.1); Magnesium 3.2 mg/dL (1.6-2.6); Mean Corpuscular HGB Conc 32.1 g/dL (31.6-35.5); Mean Corpuscular Hemoglobin 31.3 pg (28.0-33.3); Mean Corpuscular Volume 97.6 fL (83.0-100.0); Mean Platelet Volume 13.5 fL (9.4-12.4); Phosphorous 9.8 mg/dL (2.7-4.5); Potassium 4.7 mEq/L (3.5-5.1); Red Blood Count 2.97 M/mcL (4.19-5.50); Red Cell Distribution Width 19.9 % (11.5-14.5)
[2018-09-16] MEDS: Artificial Tears SOLN 15 ML BOTTLE BOTH EYES SCH ×6 (03:52→23:03)
[2018-09-16] MEDS: Insulin LISPRO 300 UNITS/3 ML VIAL SQ SCH ×5 (03:52→23:08)
[2018-09-16 04:02] LABS: Platelet Count 54 K/mcL (140-400)
[2018-09-16] MEDS: Ipratropium/Albuterol Neb 3 ML IH SCH ×6 (04:21→23:07)
[2018-09-16 04:34] LABS: Lymphocytes # 0.9 K/mcL (0.6-4.6); Monocytes # 0.9 K/mcL (0.0-1.3); Neutrophils # 20.5 K/mcL (1.6-8.9)
[2018-09-16 04:35] LABS: Anisocytosis 2+ (Not Present); Macrocytosis Present (Not Present); Platelet Estimate Decreased (Normal); Polychromasia 2+ (Not Present)
[2018-09-16] MEDS: Sodium Bicarbonate 50 MEQ in 0.45 % Sodium Chloride 1,000 ML IVC SCH ×3 (04:51→20:03)
[2018-09-16] MEDS: Octreotide 400 MCG in 0.9 % Sodium Chloride 100 ML IVC SCH (04:52)
[2018-09-16 05:42] LABS: ABG Base Excess -9 mEq/L (-2 to 3); ABG HCO3 19 mEq/L (21-27); ABG Oxygen Saturation 94 % (95-98); ABG PCO2 49 mmHg (35-45); ABG PO2 88 mmHg (85-104); ABG TCO2 20 mEq/L (20-26); Blood Gas Modality PRVC; Blood Gas PEEP 8 cm H2O; Blood Gas Respiration Rate 18; Blood Gas VT 580 cc
[2018-09-16] MEDS: Norepinephrine 4 MG in D5% in Water 250 ML IVC SCH ×3 (05:52→19:33)
--- NOTE | 2018-09-16 06:54 | Pulmonology Progress Note ---
<JanieMiguel Tono - Last Filed: 09/16/18 12:42> Date of Encounter: 09/16/18 Time of Encounter: 06:54 Assessment and Plan (1) Upper gastrointestinal hemorrhage Current Visit: Yes Status: Acute -Presented with multiple episodes of melena and coffee-ground emesis -Hgb 6.3 on arrival -Received total 7 units PRBC -EGD 09/10/18: Large fresh clot seen in fundus along with old blood. No active bleeding -EGD 09/11/18: Again demonstrated large clot in fundus with suspicion bleeding source under fundal clot -EGD 09/13/18 with blood found in cardia injected with epi achieving hemostasis -BRTO 09/14/18 via IR for fundal varices -Hgb 9.3 today -Octreotide dc tomorrow after 72 hours -Transition PPI infusion to IV (2) SPIKE (acute kidney injury) Current Visit: Yes Status: Acute -Likely 2/2 hypovolemia -Cr 1.56 on arrival -Renal function worsening and Cr 4, BUN 108 -Continue IVF, avoid nephrotoxins and trend renal function -Vanc able to dc 09/16/18 -Temp dialysis catheter placed 09/14/18 -Exchanged over wire RIJ temp dialysis catheter -Dialysis today after only able to get 40 min dialysis yesterday due to temp dialysis catheter (3) Alcohol abuse Current Visit: No Status: Acute -Extensive alcohol hx -CIWA with ativan caused further agitation in ED -Continue precedex, banana bag (4) Cirrhosis Current Visit: No Status: Chronic -Hx of cirrhosis 2/2 alcohol abuse -CT abd/plv 09/10/18 with large gastric and retroperitoneal varices -MELD 25, DF 29 -Ammonia 56 -GI following -BRTO via IR for fundal varices 09/14/18 Qualifiers: Hepatic cirrhosis type: alcoholic cirrhosis Ascites presence: unspecified Qualified Code(s): K70.30 - Alcoholic cirrhosis of liver without ascites (5) DM (diabetes mellitus), type 2 Current Visit: No Status: Chronic -SSI and accucheks Qualifiers: 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: without custodial use Diabetes mellitus complication status: without complication Qualified Code(s): E11.9 - Type 2 diabetes mellitus without complications (6) Leukocytosis Current Visit: Yes Status: Acute -Acute increase overnight wbc from 8 to 22.8 -Sputum culture 09/14/18 prelim pos gram neg rods -Dc vanc 09/16/18 -Continue levofloxacin and pip/tazo renally dosed Qualifiers: Leukocytosis type: unspecified Qualified Code(s): D72.829 - Elevated white blood cell count, unspecified (7) DVT prophylaxis Current Visit: No Status: Acute -SCDs Subjective Principal diagnosis: UGI bleed Interval history: No acute events overnight. Remains intubated and sedated. Dialysis catheter exchanged yesterday. Objective PUL Vital signs: Last Vital Signs Temp 97.4 F L 09/16/18 04:00 Pulse 80 09/16/18 06:00 Resp 21 09/16/18 06:00 BP 83/60 09/16/18 06:00 Pulse Ox 100 09/16/18 06:00 General appearance: no acute distress, other (intubated and sedated ) Eyes: nonicteric ENT: oropharynx dry Effort: normal Auscultation: bilateral: diminished breath sounds, rhonchi Cardiovascular: regular rate and rhythm Gastrointestinal: hypoactive bowel sounds, soft, non-tender, other (mildly diste nded ) Integumentary: other (scrotal hematoma ) Extremities: no cyanosis, pink and warm, pulses normal, edema other (intubated and sedated ) other (intubated and sedated ) Ventilator Settings Ventilator Settings: Ventilator Settings, Last 8 Hours Ventilator Tidal Volume 580 Setting Ventilator Tidal Volume 580 Setting Ventilator Tidal Volume 580 Setting Ventilator Tidal Volume 580 Setting Ventilator Tidal Volume 580 Setting Ventilator Tidal Volume 580 Setting Ventilator Tidal Volume 580 Setting Ventilator Tidal Volume 580 Setting Ventilator Tidal Volume 580 Setting Ventilator Tidal Volume 580 Setting Ventilator Tidal Volume 580 Setting Ventilator Respiratory Rate 18 Setting Ventilator Respiratory Rate 18 Setting Ventilator Respiratory Rate 18 Setting Ventilator Respiratory Rate 18 Setting Ventilator Respiratory Rate 18 Setting Ventilator Respiratory Rate 18 Setting Ventilator Respiratory Rate 18 Setting Ventilator Respiratory Rate 18 Setting Ventilator Respiratory Rate 18 Setting Ventilator Respiratory Rate 18 Setting Ventilator Respiratory Rate 18 Setting Actual Respiratory Rate 21 Actual Respiratory Rate 19 Actual Respiratory Rate 23 Actual Respiratory Rate 23 Actual Respiratory Rate 22 Actual Respiratory Rate 23 Actual Respiratory Rate 19 Actual Respiratory Rate 22 Actual Respiratory Rate 22 Actual Respiratory Rate 21 Actual Respiratory Rate 23 Positive End Expiratory 8 Pressure Positive End Expiratory 8 Pressure Positive End Expiratory 8 Pressure Positive End Expiratory 8 Pressure Positive End Expiratory 8 Pressure Positive End Expiratory 8 Pressure Positive End Expiratory 8 Pressure Positive End Expiratory 8 Pressure Positive End Expiratory 8 Pressure Positive End Expiratory 8 Pressure Positive End Expiratory 8 Pressure Peak Inspiratory Airway 26 Pressure Peak Inspiratory Airway 29 Pressure Peak Inspiratory Airway 28 Pressure Peak Inspiratory Airway 26 Pressure Peak Inspiratory Airway 27 Pressure Peak Inspiratory Airway 28 Pressure Peak Inspiratory Airway 34 Pressure Peak Inspiratory Airway 30 Pressure Peak Inspiratory Airway 31 Pressure Peak Inspiratory Airway 29 Pressure Peak Inspiratory Airway 30 Pressure Results - Laboratory Findings CBC and BMP: 09/16/18 03:15 09/16/18 03:15 ABG ABG pH 7.20 pH Units (7.32-7.45) L* 09/16/18 05:36 ABG pCO2 49 mmHg (35-45) H 09/16/18 05:36 ABG pO2 88 mmHg (85-104) 09/16/18 05:36 ABG O2 Saturation 94 % (95-98) L 09/16/18 05:36 PT/INR, D-dimer PT 14.8 Seconds (9.4-12.1) H 09/14/18 23:50 Abnormal lab findings: Abnormal lab results WBC 22.8 K/mcL (4.3-11.1) H D 09/16/18 03:15 RBC 2.97 M/mcL (4.19-5.50) L 09/16/18 03:15 Hgb 9.3 g/dL (12.9-16.9) L 09/16/18 03:15 Hct 29.0 % (37.5-50.1) L 09/16/18 03:15 MCV 101.8 fL (83.0-100.0) H 09/13/18 03:36 MCH 34.2 pg (28.0-33.3) H 09/13/18 03:36 RDW 19.9 % (11.5-14.5) H 09/16/18 03:15 Plt Count 54 K/mcL (140-400) L 09/16/18 03:15 MPV 13.5 fL (9.4-12.4) H 09/16/18 03:15 8.0 % (0-4) H 09/16/18 03:15 2.0 % (0) H 09/16/18 03:15 4.0 % (0) H 09/12/18 06:33 20.5 K/mcL (1.6-8.9) H 09/16/18 03:15 5.9 K/mcL (0.6-4.6) H 09/12/18 06:33 2.0 K/mcL (0.0-1.3) H 09/12/18 06:33 Nucleated RBCs/100 WBC 12.4 /100 WBC (0) H 09/16/18 03:15 Decreased (Normal) L 09/16/18 03:15 Immature Plt Fraction 17.3 % (1.1-6.1) H 09/16/18 03:15 2+ (Not Present) A 09/16/18 03:15 2+ (Not Present) A 09/16/18 03:15 Present (Not Present) A 09/15/18 03:25 Present (Not Present) A 09/16/18 03:15 PT 14.8 Seconds (9.4-12.1) H 09/14/18 23:50 APTT 24.1 Seconds (26.0-36.0) L 09/11/18 05:18 ABG pH 7.20 pH Units (7.32-7.45) L* 09/16/18 05:36 ABG pCO2 49 mmHg (35-45) H 09/16/18 05:36 ABG pO2 137 mmHg (85-104) H 09/15/18 05:19 ABG HCO3 19 mEq/L (21-27) L 09/16/18 05:36 ABG Total CO2 19 mEq/L (20-26) L 09/15/18 05:19 ABG O2 Saturation 94 % (95-98) L 09/16/18 05:36 ABG Base Excess -9 mEq/L (-2 to 3) L 09/16/18 05:36 Sodium 146 mEq/L (136-145) H 09/16/18 03:15 Potassium 5.7 mEq/L (3.5-5.1) H D 09/11/18 06:07 Chloride 111 mEq/L (98-107) H 09/16/18 03:15 Carbon Dioxide 20 mEq/L (23-29) L 09/16/18 03:15 BUN 108 mg/dL (8-23) H 09/16/18 03:15 4.00 mg/dL (0.70-1.30) H 09/16/18 03:15 Est GFR ( Amer) 18 (> 60) L 09/16/18 03:15 Est GFR (Non-Af Amer) 15 (> 60) L 09/16/18 03:15 27 (6-26) H 09/16/18 03:15 Glucose 119 mg/dL (70-105) H 09/16/18 03:15 POC Glucose 121 mg/dL (70-99) H 09/15/18 23:43 337 (280-300) H 09/16/18 03:15 Lactic Acid 3.0 mmol/L (0.5-2.2) H 09/15/18 11:30 Calcium 6.8 mg/dL (8.6-10.3) L 09/16/18 03:15 Phosphorus 9.8 mg/dL (2.7-4.5) H 09/16/18 03:15 Magnesium 3.2 mg/dL (1.6-2.6) H 09/16/18 03:15 5.6 mg/dL (0.3-1.0) H 09/15/18 11:30 4.1 mg/dL (0.0-0.2) H 09/15/18 11:30 1.5 mg/dL (0.0-1.2) H 09/15/18 11:30 AST 80 Units/L (13-39) H 09/15/18 11:30 ALT 77 Units/L (7-52) H 09/15/18 11:30 56 mcmol/L (16-53) H 09/10/18 11:19 0.09 ng/mL (< 0.04) H* 09/10/18 23:52 4.2 g/dL (6.4-8.9) L 09/15/18 11:30 2.7 g/dL (3.5-5.7) L 09/15/18 11:30 1.5 g/dL (2.4-3.5) L 09/15/18 11:30 Stool Occult Bld Scrn Positive (Negative) A 09/10/18 11:33 Vancomycin Trough 13 mcg/mL (5-10) H 09/15/18 11:30 Hep Bs Antibody < 3.10 mIU/mL (10.00-) L 09/15/18 11:30 Crossmatch See Detail 09/14/18 23:50 - Microbiology Findings Microbiology Findings: Microbiology, Last 48 Hours 09/10/18 12:31 Blood Culture - Final Peripheral Venipuncture No growth. Final report. 09/10/18 12:32 Blood Culture - Final Peripheral Venipuncture No growth. Final report. 09/15/18 02:16 Blood Culture - Preliminary Peripheral Venipuncture Culture is incubating and being continuously monitored for growth. Final report to follow. 09/15/18 02:16 Blood Culture - Preliminary Peripheral Venipuncture Culture is incubating and being continuously monitored for growth. Final report to follow. 09/14/18 21:00 Sputum Culture - Preliminary Aspirate - Clinical Findings Intake & Output: Intake & Output 09/15/18 09/15/18 09/16/18 15:59 23:59 07:59 Intake Total 2359 / 8131 1814 / 8131 1648 / 1648 Output Total 445 / 770 125 / 770 25 / 25 Balance 1914 / 7361 1689 / 7361 1623 / 1623 Weight 126.3 kg 126.3 kg Consult Discharge Plan - Plan [facility]errals: [facility] [Primary Care Provider[facility] - <Jack Rossi - Last Filed: 09/16/18 22:01> Date of Encounter: 09/16/18 Assessment and Plan (1) Acute respiratory failure with hypoxia Current Visit: Yes Status: Acute (2) GI bleed Current Visit: Yes Status: Acute Qualifiers: GI bleed type/associated pathology: unspecified gastrointestinal hemorrhage type Qualified Code(s): K92.2 - Gastrointestinal hemorrhage, unspecified (3) Cirrhosis Current Visit: Yes Status: Acute Qualifiers: Hepatic cirrhosis type: alcoholic cirrhosis Ascites presence: without ascites Qualified Code(s): K70.30 - Alcoholic cirrhosis of liver without ascites (4) GI bleed Current Visit: Yes Status: Acute Qualifiers: GI bleed type/associated pathology: unspecified gastrointestinal hemorrhage type Qualified Code(s): K92.2 - Gastrointestinal hemorrhage, unspecified (5) Pneumonia Current Visit: Yes Status: Acute Qualifiers: Pneumonia type: due to unspecified organism Laterality: bilateral Lung location: unspecified part of lung Qualified Code(s): J18.9 - Pneumonia, unspecified organism (6) DVT prophylaxis Current Visit: Yes Status: Acute Objective PUL Vital signs: Last Vital Signs Temp 95.7 F L 09/16/18 19:20 Pulse 60 09/16/18 21:00 Resp 24 09/16/18 21:00 BP 117/61 09/16/18 21:00 Pulse Ox 100 09/16/18 21:00 Ventilator Settings Ventilator Settings: Ventilator Settings, Last 8 Hours Ventilator Tidal Volume 620 Setting Ventilator Tidal Volume 620 Setting Ventilator Tidal Volume 620 Setting Ventilator Tidal Volume 620 Setting Ventilator Tidal Volume 620 Setting Ventilator Tidal Volume 620 Setting Ventilator Tidal Volume 620 Setting Ventilator Tidal Volume 620 Setting Ventilator Tidal Volume 620 Setting Ventilator Tidal Volume 620 Setting Ventilator Tidal Volume 620 Setting Ventilator Respiratory Rate 24 Setting Ventilator Respiratory Rate 24 Setting Ventilator Respiratory Rate 24 Setting Ventilator Respiratory Rate 24 Setting Ventilator Respiratory Rate 24 Setting Ventilator Respiratory Rate 24 Setting Ventilator Respiratory Rate 24 Setting Ventilator Respiratory Rate 24 Setting Ventilator Respiratory Rate 24 Setting Ventilator Respiratory Rate 24 Setting Ventilator Respiratory Rate 24 Setting Actual Respiratory Rate 24 Actual Respiratory Rate 24 Actual Respiratory Rate 24 Actual Respiratory Rate 24 Positive End Expiratory 8 Pressure Positive End Expiratory 8 Pressure Positive End Expiratory 8 Pressure Positive End Expiratory 8 Pressure Positive End Expiratory 8 Pressure Positive End Expiratory 8 Pressure Positive End Expiratory 8 Pressure Positive End Expiratory 8 Pressure Positive End Expiratory 8 Pressure Positive End Expiratory 8 Pressure Positive End Expiratory 8 Pressure Peak Inspiratory Airway 35 Pressure Peak Inspiratory Airway 35 Pressure Peak Inspiratory Airway 35 Pressure Peak Inspiratory Airway 35 Pressure Peak Inspiratory Airway 34 Pressure Peak Inspiratory Airway 36 Pressure Peak Inspiratory Airway 35 Pressure Peak Inspiratory Airway 35 Pressure Peak Inspiratory Airway 35 Pressure Peak Inspiratory Airway 35 Pressure Peak Inspiratory Airway 38 Pressure Results - Laboratory Findings CBC and BMP: 09/16/18 03:15 09/16/18 03:15 ABG ABG pH 7.25 pH Units (7.32-7.45) L 09/16/18 13:48 ABG pCO2 46 mmHg (35-45) H 09/16/18 13:48 ABG pO2 54 mmHg (85-104) L 09/16/18 13:48 ABG O2 Saturation 82 % (95-98) L 09/16/18 13:48 PT/INR, D-dimer PT 14.8 Seconds (9.4-12.1) H 09/14/18 23:50 Abnormal lab findings: Abnormal lab results WBC 22.8 K/mcL (4.3-11.1) H D 09/16/18 03:15 RBC 2.97 M/mcL (4.19-5.50) L 09/16/18 03:15 Hgb 9.3 g/dL (12.9-16.9) L 09/16/18 03:15 Hct 29.0 % (37.5-50.1) L 09/16/18 03:15 MCV 101.8 fL (83.0-100.0) H 09/13/18 03:36 MCH 34.2 pg (28.0-33.3) H 09/13/18 03:36 RDW 19.9 % (11.5-14.5) H 09/16/18 03:15 Plt Count 54 K/mcL (140-400) L 09/16/18 03:15 MPV 13.5 fL (9.4-12.4) H 09/16/18 03:15 8.0 % (0-4) H 09/16/18 03:15 2.0 % (0) H 09/16/18 03:15 4.0 % (0) H 09/12/18 06:33 20.5 K/mcL (1.6-8.9) H 09/16/18 03:15 5.9 K/mcL (0.6-4.6) H 09/12/18 06:33 2.0 K/mcL (0.0-1.3) H 09/12/18 06:33 Nucleated RBCs/100 WBC 12.4 /100 WBC (0) H 09/16/18 03:15 Decreased (Normal) L 09/16/18 03:15 Immature Plt Fraction 17.3 % (1.1-6.1) H 09/16/18 03:15 2+ (Not Present) A 09/16/18 03:15 2+ (Not Present) A 09/16/18 03:15 Present (Not Present) A 09/15/18 03:25 Present (Not Present) A 09/16/18 03:15 PT 14.8 Seconds (9.4-12.1) H 09/14/18 23:50 APTT 24.1 Seconds (26.0-36.0) L 09/11/18 05:18 ABG pH 7.25 pH Units (7.32-7.45) L 09/16/18 13:48 ABG pCO2 46 mmHg (35-45) H 09/16/18 13:48 ABG pO2 54 mmHg (85-104) L 09/16/18 13:48 ABG HCO3 20 mEq/L (21-27) L 09/16/18 13:48 ABG Total CO2 19 mEq/L (20-26) L 09/15/18 05:19 ABG O2 Saturation 82 % (95-98) L 09/16/18 13:48 ABG Base Excess -7 mEq/L (-2 to 3) L 09/16/18 13:48 Sodium 146 mEq/L (136-145) H 09/16/18 03:15 Potassium 5.7 mEq/L (3.5-5.1) H D 09/11/18 06:07 Chloride 111 mEq/L (98-107) H 09/16/18 03:15 Carbon Dioxide 20 mEq/L (23-29) L 09/16/18 03:15 BUN 108 mg/dL (8-23) H 09/16/18 03:15 4.00 mg/dL (0.70-1.30) H 09/16/18 03:15 Est GFR ( Amer) 18 (> 60) L 09/16/18 03:15 Est GFR (Non-Af Amer) 15 (> 60) L 09/16/18 03:15 27 (6-26) H 09/16/18 03:15 Glucose 119 mg/dL (70-105) H 09/16/18 03:15 POC Glucose 120 mg/dL (70-99) H 09/16/18 17:34 337 (280-300) H 09/16/18 03:15 Lactic Acid 2.3 mmol/L (0.5-2.2) H 09/16/18 08:25 Calcium 6.8 mg/dL (8.6-10.3) L 09/16/18 03:15 Phosphorus 9.8 mg/dL (2.7-4.5) H 09/16/18 03:15 Magnesium 3.2 mg/dL (1.6-2.6) H 09/16/18 03:15 5.6 mg/dL (0.3-1.0) H 09/15/18 11:30 4.1 mg/dL (0.0-0.2) H 09/15/18 11:30 1.5 mg/dL (0.0-1.2) H 09/15/18 11:30 AST 80 Units/L (13-39) H 09/15/18 11:30 ALT 77 Units/L (7-52) H 09/15/18 11:30 56 mcmol/L (16-53) H 09/10/18 11:19 0.09 ng/mL (< 0.04) H* 09/10/18 23:52 4.2 g/dL (6.4-8.9) L 09/15/18 11:30 2.7 g/dL (3.5-5.7) L 09/15/18 11:30 1.5 g/dL (2.4-3.5) L 09/15/18 11:30 Stool Occult Bld Scrn Positive (Negative) A 09/10/18 11:33 Vancomycin Trough 13 mcg/mL (5-10) H 09/15/18 11:30 Hep Bs Antibody < 3.10 mIU/mL (10.00-) L 09/15/18 11:30 Crossmatch See Detail 09/14/18 23:50 - Microbiology Findings Microbiology Findings: Microbiology, Last 48 Hours 09/14/18 21:00 Sputum Culture - Preliminary Aspirate Gram Negative Walt 09/10/18 12:31 Blood Culture - Final Peripheral Venipuncture No growth. Final report. 09/10/18 12:32 Blood Culture - Final Peripheral Venipuncture No growth. Final report. 09/15/18 02:16 Blood Culture - Preliminary Peripheral Venipuncture Culture is incubating and being continuously monitored for growth. Final report to follow. 09/15/18 02:16 Blood Culture - Preliminary Peripheral Venipuncture Culture is incubating and being continuously monitored for growth. Final report to follow. - Clinical Findings Intake & Output: Intake & Output 09/16/18 09/16/18 09/16/18 07:59 15:59 23:59 Intake Total 1648 / 5071 1859 / 5071 1564 / 5071 Output Total 354 / 533 129 / 533 Balance 1598 / 4538 1505 / 4538 1435 / 4538 Weight 126.3 kg 126.3 kg 126.3 kg - Attending Attestation I saw and evaluated this patient and my medical decision-making was reviewed with the Resident Physician. I agree with the documented findings, disposition and treatment plan as described except to the extent set forth below. We independently had [id number] contact with the patient I spent 50 minutes of Critical Care time with this patient. It involved decision making of high complexity to assess, manipulate, and support vital organ system failure and/or to prevent further life threatening deterioration of the patient's condition. The time involved in the performance of separately reportable procedures was not counted toward critical care time. Patient seen and examined at bedside Labs, radiology, chart personally reviewed. Management was reviewed during multidisciplinary critical care rounds. 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 Pulm: Patient V/Q mismatch is stable sputum growing gram-negative rods to cover with broad-spectrum antibiotics. Cards: Patient is on levophed septic shock secondary to pneumonia. FEN-GI: Patient has an OG access now to start on the tube feeds as tolerated Renal: Has acute kidney injury patient started on CVVH ID: To cover with broad-spectrum antibiotics for pneumonia. Heme/Onc: Labs reviewed. Endo: Glucose Monitored Integ/MSK: Skin Care per routine ICU Nursing Protocol to prevent ulcers. Lines: All lines examined without evidence of infection : Dispo: critically ill CODE: Full Code to consult Palliative care . Spoke with power of deputy county attorney says that patient never wanted to be on life support would like to discuss goals of care with palliative care team.
[2018-09-16] MEDS ORDERED: Aminoglycoside Consult 1 EACH MC ONE (07:49)
[2018-09-16] MEDS: Piperacillin/Tazobactam 3.375 GM in 0.9 % Sodium Chloride Mini Bag 100 ML IVPB SCH ×3 (08:16→23:08)
[2018-09-16] MEDS: Chlorhexidine Rinse 15 ML MOUTHWASH MM SCH ×2 (08:16→20:04)
[2018-09-16] MEDS: Lactulose Oral Soln 20 GM/30 ML UDC PO SCH ×3 (08:18→20:04)
[2018-09-16] MEDS: Thiamine (B-1) 100 MG in D5% in Water 50 ML IVPB SCH (08:24)
--- NOTE | 2018-09-16 10:29 | Nephrology Progress Note ---
Date of Encounter: 09/16/18 Time of Encounter: 09:15 - Assessment and Plan (1) SPIKE (acute kidney injury) Current Visit: Yes Status: Acute FeNa 0.2%. Pre-renal pathology in setting of volume depletion secondary to GI hemorrhage, intractable nausea and vomiting, poor PO intake, cirrhosis, and chronic NSAID use at home. S/P placement of HD catheter on 09/14/18. Renal u/s showed the right kidney measures 10.9 cm in length and the left kidney measures 11.4 cm in length. No evidence of hydronephrosis or intrarenal stones. Renal venogram showed Large varices were noted flowing through splenorenal shunt. S/P emolization of splenorenal shunts with coils. Creatinine is still continuing to rise: 2.69 -> 3.16 -> 4.00. GFR. Cannot r/o ATN at this point due to hypo- perfusion in setting of sepsis and cirrhosis. - Patient's renal function continuing to decline despite on dialysis and IVF. Recommend to start on BIB. - Continue IVF. - Avoid nephrotoxins. - Renal dose antibiotics. (2) Metabolic acidosis Current Visit: Yes Status: Acute Ph 7.2. HCO3 at 19 (improving). - Continue IVF 0.45% NaCl with 50 meq Bicarb at 125 mls/hr. Subjective Principal diagnosis: UGI bleed Interval history: Patient was still intubated today. Objective - Vital Signs Vital signs: Vital Signs Temp Pulse Resp BP Pulse Ox 09/16/18 09:04 24 86/51 100 09/16/18 09:00 82 24 86/51 100 09/16/18 08:00 82 22 87/51 100 09/16/18 07:36 23 89/50 100 09/16/18 07:33 98.4 F 09/16/18 07:00 81 23 91/53 100 09/16/18 06:00 80 21 83/50 100 09/16/18 05:00 80 21 98/49 100 09/16/18 04:26 23 96/55 100 09/16/18 04:00 97.4 F L 78 23 96/55 100 09/16/18 03:32 79 09/16/18 03:00 78 22 102/57 99 09/16/18 02:25 23 90/60 100 09/16/18 02:00 76 19 90/60 90 09/16/18 01:00 78 23 90/57 96 09/16/18 00:00 97.5 F L 78 22 91/52 91 09/15/18 23:48 78 09/15/18 23:45 21 88/56 98 09/15/18 23:00 77 23 94/57 98 09/15/18 22:00 77 22 93/56 100 09/15/18 21:00 77 23 81/54 99 09/15/18 20:43 22 92/50 98 09/15/18 20:00 79 23 83/49 97 09/15/18 19:56 82 09/15/18 19:44 97.6 F 09/15/18 19:00 82 23 82/54 96 09/15/18 18:10 19 84/55 95 09/15/18 18:00 84 20 92/49 61 09/15/18 17:00 87 22 101/61 95 09/15/18 16:06 25 106/61 93 09/15/18 16:00 87 20 106/61 93 09/15/18 15:51 97.5 F L 09/15/18 15:00 79 20 102/56 93 09/15/18 14:15 98 F 20 100/61 09/15/18 14:05 86/52 09/15/18 14:00 80 22 90/61 94 09/15/18 13:58 19 85/57 95 09/15/18 13:45 96/53 09/15/18 13:30 105/60 09/15/18 13:15 97.9 F 20 89/56 09/15/18 13:00 79 24 104/58 94 09/15/18 12:00 96.9 F L 79 20 98/56 95 09/15/18 11:36 97 09/15/18 11:00 96.9 F L 76 20 97/60 96 Intake and Output 09/15/18 09/16/18 09/16/18 23:59 07:59 15:59 Intake Total 2063 Output Total 125 / 770 50 / 50 Balance 1939 / 8111 1598 / 1842 1841 Intake: IV Fluids 2063 PRECEDEX Premix 400 mcg In 100 200 / 500 100 / 190 90 / 190 ml @ 0.2 MCG/KG/HR 5.736 mls/hr IVC .[id number] [facility] Rx#: [id number] FentaNYL (PF) 1,000 MCG In 0.9 100 / 300 100 / 175 75 / 175 % Sodium Chloride 80 ML @ 50 MCG/HR 5 mls/hr IVC CONT [facility] Rx #:[id number] Levophed 4 MG In Dextrose 5% 60 / 568 194 / 273 79 / 273 250 ML @ 8 MCG/MIN 30.48 mls/hr IVC CONT [facility] Rx#:[id number] SandoSTATIN 400 MCG In 0.9 % 104 / 312 104 / 104 Sodium Chloride 100 ML @ 50 MCG /HR 13 mls/hr IVC .Q8H [facility] Rx#: [id number] Protonix 40 MG In 0.9 % Sodium 200 / 400 100 / 100 Chloride (Mini-Bag +) 100 ML @ 20 mls/hr IVC .Q5H [facility] Rx#: [id number] Sodium Bicarbonate 50 MEQ In 0. 1050 / 3150 1050 / 1050 45% Sodium Chloride 1000 Ml 1000 Ml 1,000 ML @ 125 mls/hr IVC .Q8H24M [facility] Rx#:[id number] Zosyn 3.375 GM In 0.9 % Sodium 100 / 100 Chloride (Mini-Bag +) 100 ML @ 25 mls/hr IVPB Q12H [facility] Rx#: [id number] Vancocin 1,000 MG In 0.9 % 250 / 250 Sodium Chloride 250 ML @ 167 mls/hr IVPB ONCE ONE Rx#: [id number] Output: Catheter 125 / 575 50 / 50 Other: Weight 126.3 kg 126.3 kg Blood Glucose* 102 153 Patient Weight 09/16/18 23:59 Weight 126.3 kg - General Appearance General appearance: Present: appears started age, obese, intubated EENT: Present: mucous membranes moist Neck: Present: no JVD Respiratory: Present: clear Cardiology: Present: no murmurs, no rub, no gallops, edema (+2 pitting edema of LE b/l.), regular rate, regular rhythm, normal S1, normal S2 Gastrointestinal: Present: normoactive bowel sounds, no tenderness, rebound tenderness, no guarding, no organomegaly, no masses, obese, distended Additional Comments: No shifting fluid. Integumentary: Present: warm and dry Neurologic: Present: no focal deficit, no asterixis Musculoskeletal: Present: no deformities, no erythema, no cyanosis, no clubbing - Lab 09/16/18 03:15 09/16/18 03:15 Most recent lab results 09/16/18 09/16/18 03:15 05:36 ABG pH 7.20 L* ABG pCO2 49 H ABG pO2 88 ABG HCO3 19 L ABG O2 Saturation 94 L Calcium 6.8 L Phosphorus 9.8 H Magnesium 3.2 H Consult Discharge Plan - Plan [facility]errals[facility] [Primary Care Provider] -
[2018-09-16] MEDS ORDERED: 0.9 % Sodium Chloride 1,000 ML PRIME ONE ×2 (10:52)
[2018-09-16] MEDS ORDERED: *HR* Alteplase (Cathflo) 2 MG VIAL IVP PRN (10:52)
[2018-09-16] MEDS ORDERED: 0.9 % Sodium Chloride 1,000 ML PRIME SCH (11:00)
[2018-09-16] MEDS: PrismaSATE BGK 4/2.5 5,000 ML CRRT SCH ×12 (13:28→23:03)
--- NOTE | 2018-09-16 13:50 | Gastroenterology Progress Note ---
<Jean Carlos Lazaro - Last Filed: 09/16/18 13:47> Date of Encounter: 09/16/18 Time of Encounter: 10:00 - Assessment and plan (1) Anemia Current Visit: No Status: Acute Assessment and plan: Hgb 6.3 on admission. Hgb stable at 9.3 today. Continue to monitor CBC and transfuse PRBC as needed. EGD 09/20/2018 Dr. Dale: Large fresh clot seen in the fundus along with old blood, red blood in the cardia as well. EGD 09/11/2018 Dr. Dale: LA grade A reflux esophagitis, large clot in fundus of stomach, large amount of dark old blood in the fundus and body screening view. EGD 09/13/2018 Dr. Pichardo: Hematin (altered blood/coffee-ground like material) in the cardia area injected with epinephrine BRTO of 09/14/2018 gastric varices obliterated. No further bleeding noted. Qualifiers: Anemia type: unspecified type Qualified Code(s): D64.9 - Anemia, unspecified (2) Cirrhosis Current Visit: No Status: Chronic Assessment and plan: MELD-Na 16, Child-Carpio class C, DF 29.1 on admission. Today MELD-Na 16, Child-Carpio class C, DF 17.6. AFP 6 on 02/13/2017. Check AFP and RUQ US to r/o HCC. Recommend 2-4 BMs daily, use Lactulose PRN. Lifestyle Changes: 1. Total abstinence from alcohol including social drinking. 2. No smoking. 3. Gradual loss of weight. 4. Drink at least 3 cups of coffee due to its antioxidant effects in the liver, it reduces risk of HCC and advance fibrosis. 5. If needed, use less than 2 g/day of Tylenol (in divided doses). 6. Vaccination for Hep A, B, Pneumococcus if not already received and yearly influenza vaccination by PCP. 7. Avoid NSAIDS as can cause kidney damage. 8. Avoid benzodiazepines and other sedatives such as anti-histamines, narcotics etc. as can cause encephalopathy or confusion. 9. Take a late carbohydrate meal supplement as it reduces glucose production from protein breakdown and thus improves nutrition. 10. In cirrhosis, statins are safe to use and also improve portal hypertension a nd decrease risk of HCC. 11. Screening: Hepatocellular cancer screening: US of liver and AFP every 6 months. Qualifiers: Hepatic cirrhosis type: alcoholic cirrhosis Ascites presence: unspecified Qualified Code(s): K70.30 - Alcoholic cirrhosis of liver without ascites (3) Alcohol abuse Current Visit: No Status: Acute Assessment and plan: Total abstinence from alcohol including social drinking. (4) Upper gastrointestinal hemorrhage Current Visit: Yes Status: Acute Assessment and plan: EGD 09/20/2018 Dr. Dale: Large fresh clot seen in the fundus along with old blood, red blood in the cardia as well. EGD 09/11/2018 Dr. Dale: LA grade A reflux esophagitis, large clot in fundus of stomach, large amount of dark old blood in the fundus and body screening view. EGD 09/13/2018 Dr. Pichardo: Hematin (altered blood/coffee-ground like material) in the cardia area injected with epinephrine BRTO of 09/14/2018 gastric varices obliterated. - Time Spent With Patient Total time spent is greater than 50% in coordination of care (as documented) at patient's floor/unit and/or counseling patient: - Subjective Interval history: Patient is intubated and sedated. - Constitutional Vitals: Temp Pulse Resp BP Pulse Ox 98.5 F 78 24 96/55 99 09/16/18 10:43 09/16/18 12:00 09/16/18 12:00 09/16/18 12:00 09/16/18 12:00 Exam: Intubated and sedated. - Head Head exam: Present: atraumatic, normocephalic - Eye Eye exam: Present: normal appearance, sclera anicteric - ENT ENT exam: Present: mucous membranes dry Additional comments: ET tube in place. - Neck Neck exam general surgery: Present: normal inspection, trachea midline - Respiratory Additional comments: Mechanical breath sounds. - Cardiovascular Cardiovascular exam: Present: RRR, +S1, +S2 - GI/Abdominal GI/Abdominal exam: Present: distended, soft, no peritoneal signs. Absent: firm, guarding, tenderness - Rectal Rectal exam: Present: deferred - Extremities Exam Extremities exam: Present: pedal edema, warm - Skin Skin exam: Present: dry, intact, normal color, warm Results - Labs CBC & Chem 7: 09/16/18 03:15 09/16/18 03:15 Labs: Last Result 09/16/18 03:15 Calcium 6.8 L Entire Visit 09/16/18 03:15 Hgb 9.3 L Hct 29.0 L - ABG ABG results: ABG ABG pH 7.20 pH Units (7.32-7.45) L* 09/16/18 05:36 ABG pCO2 49 mmHg (35-45) H 09/16/18 05:36 ABG pO2 88 mmHg (85-104) 09/16/18 05:36 ABG O2 Saturation 94 % (95-98) L 09/16/18 05:36 PT/INR, D-dimer PT 14.8 Seconds (9.4-12.1) H 09/14/18 23:50 - Impressions Impressions Embolization 09/14/18 00:00 IMPRESSION: Successful BRTO procedure for the purpose of obliterating gastric varices. The procedure was done through access into the spontaneous splenorenal shunt. D/ : / 09/14/2018 15:39:14 Stacy Montgomery MD / kim Interpreting Provider: Stacy Montgomery MD Embolization 09/14/18 00:00 IMPRESSION: Successful BRTO procedure for the purpose of obliterating gastric varices. The procedure was done through access into the spontaneous splenorenal shunt. D/ : / 09/14/2018 15:39:14 Stacy Montgomery MD / kim Interpreting Provider: Stacy Montgomery MD Renal Venogram 09/14/18 00:00 IMPRESSION: Successful BRTO procedure for the purpose of obliterating gastric varices. The procedure was done through access into the spontaneous splenorenal shunt. D/ : / 09/14/2018 15:39:14 Stacy Montgomery MD / kim Interpreting Provider: Stacy Montgomery MD Venogram 09/14/18 00:00 IMPRESSION: Successful BRTO procedure for the purpose of obliterating gastric varices. The procedure was done through access into the spontaneous splenorenal shunt. D/ / 09/14/2018 15:39:14 Stacy Montgomery MD / [email or web address] Interpreting Provider: Stacy Montgomery MD Chest X-Ray 09/15/18 03:45 IMPRESSION: Support devices appear in appropriate position. Left upper lobe airspace disease slightly increased in the short interval. D/ / Jean Carlos Chamberlain MD / Jean Carlos Chamberlain MD Interpreting Provider: Jean Carlos Chamberlain MD Chest X-Ray 09/15/18 17:05 IMPRESSION: 1. Right IJ catheter tip at the cavoatrial junction. ETT tip 3 cm above the perfecto. 2. Patchy bilateral lung opacities, increased compared to prior study may represent multifocal pneumonia or pulmonary edema. D/ / Carson Murray MD / Carson Murray MD Interpreting Provider: Carson Murray MD Consult Discharge Plan - Plan [facility]errals: [facility] [Primary Care Provider] - <Rashad Sweet - Last Filed: 09/16/18 18:09> Date of Encounter: 09/16/18 Time of Encounter: 17:40 - Time Spent With Patient Total time spent is greater than 50% in coordination of care (as documented) at patient's floor/unit and/or counseling patient: - Constitutional Vitals: Temp Pulse Resp BP Pulse Ox 94.0 F L 63 24 119/59 100 09/16/18 16:00 09/16/18 17:00 09/16/18 17:32 09/16/18 17:32 09/16/18 17:32 Results - Labs CBC & Chem 7: 09/16/18 03:15 09/16/18 03:15 - ABG ABG results: ABG ABG pH 7.25 pH Units (7.32-7.45) L 09/16/18 13:48 ABG pCO2 46 mmHg (35-45) H 09/16/18 13:48 ABG pO2 54 mmHg (85-104) L 09/16/18 13:48 ABG O2 Saturation 82 % (95-98) L 09/16/18 13:48 PT/INR, D-dimer PT 14.8 Seconds (9.4-12.1) H 09/14/18 23:50 - Impressions Impressions Embolization 09/14/18 00:00 IMPRESSION: Successful BRTO procedure for the purpose of obliterating gastric varices. The procedure was done through access into the spontaneous splenorenal shunt. D/ : / 09/14/2018 15:39:14 Stacy Montgomery MD / kim Interpreting Provider: Stacy Montgomery MD Embolization 09/14/18 00:00 IMPRESSION: Successful BRTO procedure for the purpose of obliterating gastric varices. The procedure was done through access into the spontaneous splenorenal shunt. D/ : / 09/14/2018 15:39:14 Stacy Montgomery MD / kim Interpreting Provider: Stacy Montgomery MD Renal Venogram 09/14/18 00:00 IMPRESSION: Successful BRTO procedure for the purpose of obliterating gastric varices. The procedure was done through access into the spontaneous splenorenal shunt. D/ /14/2018 15:39:14 Stacy Montgomery MD / kim Interpreting Provider: Stacy Montgomery MD Venogram 09/14/18 00:00 IMPRESSION: Successful BRTO procedure for the purpose of obliterating gastric varices. The procedure was done through access into the spontaneous splenorenal shunt. D/ / 09/14/2018 15:39:14 Stacy Montgomery MD / kim Interpreting Provider: Stacy Montgomery MD X-Ray 09/16/18 14:40 IMPRESSION: A new gastric tube loops in the gastric fundus, with the tip and sideport are located. The position is technically appropriate, although repositioning could be considered. D/ / Jean Carlos Eddy MD / Jean Carlos Eddy MD Interpreting Provider: Jean Carlos Eddy MD - Attending Attestation I have personally performed a face to face evaluation on this patient. I have reviewed and agree with the care plan. History and Exam by me shows: PT seen currently on the vent. G-tube in place with old dark blood. Assessments: Patient 68-year-old male with the cirrhosis now with respiratory failure and also with acute renal failure currently on [facility]. Hemoglobin is currently stable. ReC: Continue supportive care, over all prognosis is poor
[2018-09-16 13:53] LABS: ABG Base Excess -7 mEq/L (-2 to 3); ABG HCO3 20 mEq/L (21-27); ABG Oxygen Saturation 82 % (95-98); ABG PCO2 46 mmHg (35-45); ABG PH 7.25 pH Units (7.32-7.45); ABG PO2 54 mmHg (85-104); ABG TCO2 21 mEq/L (20-26); Blood Gas Modality AF; Blood Gas PEEP 8 cm H2O; Blood Gas Respiration Rate 24; Blood Gas VT 620 cc
[2018-09-17] MEDS: *HR* Heparin 5,000 UNIT/ML VIAL IV PRN (02:30)
[2018-09-17] MEDS: PrismaSATE BGK 4/2.5 5,000 ML CRRT SCH ×21 (02:38→23:49)
[2018-09-17] MEDS: Artificial Tears SOLN 15 ML BOTTLE BOTH EYES SCH ×6 (03:06→23:50)
[2018-09-17] MEDS: Sodium Bicarbonate 50 MEQ in 0.45 % Sodium Chloride 1,000 ML IVC SCH (03:22)
[2018-09-17] MEDS: Norepinephrine 4 MG in D5% in Water 250 ML IVC SCH ×2 (03:26→20:21)
[2018-09-17] MEDS: Ipratropium/Albuterol Neb 3 ML IH SCH ×6 (03:39→23:16)
[2018-09-17 03:48] LABS: Mean Corpuscular Volume 94.8 fL (83.0-100.0)
[2018-09-17 03:49] LABS: Albumin 2.5 g/dL (3.5-5.7); Albumin/Globulin Ratio 1.4 (1.1-2.2); Bilirubin,Direct 4.9 mg/dL (0.0-0.2); Bilirubin,Indirect 2.1 mg/dL (0.0-1.2); Calcium 6.6 mg/dL (8.6-10.3); Globulin 1.8 g/dL (2.4-3.5); Magnesium 2.6 mg/dL (1.6-2.6); Phosphorous 4.9 mg/dL (2.7-4.5); Potassium 4.4 mEq/L (3.5-5.1); Total Protein 4.3 g/dL (6.4-8.9)
[2018-09-17 03:50] LABS: Hematocrit 29.1 % (37.5-50.1); Hemoglobin 9.6 g/dL (12.9-16.9); Immature Platelets 17.9 % (1.1-6.1); Mean Corpuscular Hemoglobin 31.3 pg (28.0-33.3); Mean Platelet Volume 12.3 fL (9.4-12.4); Nucleated Red Blood Cells 4.8 /100 WBC (0); Red Blood Count 3.07 M/mcL (4.19-5.50); Red Cell Distribution Width 19.9 % (11.5-14.5)
[2018-09-17 04:10] LABS: Platelet Count 69 K/mcL (140-400)
[2018-09-17 04:56] LABS: Anisocytosis 1+ (Not Present); Eosinophils # 0.5 K/mcL (0.0-0.6); Lymphocytes # 0.5 K/mcL (0.6-4.6); Macrocytosis Present (Not Present); Neutrophils # 21.8 K/mcL (1.6-8.9); Platelet Estimate Decreased (Normal); Poikilocytosis 1+ (Not Present)
[2018-09-17] MEDS: Insulin LISPRO 300 UNITS/3 ML VIAL SQ SCH ×4 (05:04→23:52)
[2018-09-17 05:46] LABS: ABG Base Excess 1 mEq/L (-2 to 3); ABG HCO3 26 mEq/L (21-27); ABG Oxygen Saturation 96 % (95-98); ABG PCO2 41 mmHg (35-45); ABG PO2 84 mmHg (85-104); ABG TCO2 27 mEq/L (20-26); Blood Gas Modality PRVC; Blood Gas PEEP 8 cm H2O; Blood Gas Respiration Rate 24; Blood Gas VT 620 cc
[2018-09-17] MEDS: Piperacillin/Tazobactam 3.375 GM in 0.9 % Sodium Chloride Mini Bag 100 ML IVPB SCH (07:46)
[2018-09-17] MEDS: Thiamine (B-1) 100 MG in D5% in Water 50 ML IVPB SCH (07:49)
[2018-09-17] MEDS: Pantoprazole 40 MG VIAL IVP SCH (07:56)
[2018-09-17] MEDS: Lactulose Oral Soln 20 GM/30 ML UDC PO SCH (07:56)
[2018-09-17] MEDS ORDERED: Amiodarone Premix 150 MG/100 ML BAG IVPB ONE ×2 (08:57→09:01)
[2018-09-17] MEDS ORDERED: Amiodarone Premix 360 MG/200 ML BAG IVC ONE (09:01)
[2018-09-17] MEDS: Chlorhexidine Rinse 15 ML MOUTHWASH MM SCH ×2 (09:03→20:27)
[2018-09-17] MEDS: Amiodarone Premix 360 MG/200 ML BAG IVC SCH ×2 (09:32→20:21)
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
[2018-09-17] MEDS: Dexmedetomidine HCl 400 MCG/100 ML MLS IVC SCH ×2 (11:54→22:13)
--- NOTE | 2018-09-17 12:45 | Nephrology Progress Note ---
Date of Encounter: 09/17/18 Time of Encounter: 12:44 - Assessment and Plan (1) SPIKE (acute kidney injury) Current Visit: Yes Status: Acute (2) Cirrhosis Current Visit: Yes Status: Acute Qualifiers: Hepatic cirrhosis type: other cirrhosis Qualified Code(s): K74.69 - Other cirrhosis of liver (3) Esophageal varices Current Visit: Yes Status: Acute Qualifiers: Esophageal varices type: unspecified type Esophageal varices bleeding: with bleeding Qualified Code(s): I85.01 - Esophageal varices with bleeding (4) GI bleed Current Visit: Yes Status: Acute Qualifiers: GI bleed type/associated pathology: unspecified gastrointestinal hemorrhage type Qualified Code(s): K92.2 - Gastrointestinal hemorrhage, unspecified (5) Anemia Current Visit: No Status: Acute Qualifiers: Anemia type: unspecified type Qualified Code(s): D64.9 - Anemia, unspecified (6) DM (diabetes mellitus), type 2 Current Visit: No Status: Chronic Qualifiers: Diabetes mellitus mcfp insulin use: without mcfp use Diabetes mellitus complication status: without complication Qualified Code(s): E11.9 - Type 2 diabetes mellitus without complications (7) Hypertension Current Visit: No Status: Chronic Qualifiers: Hypertension type: essential hypertension Qualified Code(s): I10 - Essential (primary) hypertension (8) Obesity (BMI 30-39.9) Current Visit: No Status: Chronic Subjective Principal diagnosis: UGI bleed Interval history: Patient with worsening multifactorial SPIKE. He is intubated and critically ill. ROS is unobtainable. Objective - Vital Signs Vital signs: Vital Signs Temp Pulse Resp BP Pulse Ox 09/17/18 12:21 25 87/57 100 09/17/18 12:19 25 100 09/17/18 12:00 97.5 F L 85 25 112/74 100 09/17/18 11:00 94 25 100/52 100 09/17/18 10:00 95 25 72/60 100 09/17/18 09:00 95 27 95/71 100 09/17/18 08:00 96.7 F L 105 24 93/69 100 09/17/18 07:27 27 114/49 99 09/17/18 06:59 91 27 110/60 99 09/17/18 06:00 96 26 112/62 99 09/17/18 05:01 95 25 110/65 98 09/17/18 04:02 98 28 139/63 98 09/17/18 03:43 25 146/54 98 09/17/18 03:02 70 09/17/18 03:01 98 F 72 24 98/44 100 09/17/18 02:00 78 24 122/52 100 09/17/18 01:14 25 114/58 99 09/17/18 01:00 70 25 122/58 100 09/17/18 00:00 77 24 113/54 99 09/16/18 23:23 77 09/16/18 23:09 24 108/55 99 09/16/18 23:00 96.9 F L 72 24 115/55 100 09/16/18 22:01 65 24 113/54 100 09/16/18 21:00 60 24 117/61 100 09/16/18 20:19 24 117/61 100 09/16/18 19:20 95.7 F L 61 24 124/51 100 09/16/18 19:00 62 24 115/50 100 09/16/18 18:00 62 24 123/60 100 09/16/18 17:32 24 119/59 100 09/16/18 17:00 63 24 119/59 99 09/16/18 16:00 94.0 F L 65 24 114/64 100 09/16/18 15:36 24 126/68 98 09/16/18 15:00 68 24 97/59 99 09/16/18 14:00 75 24 103/61 98 09/16/18 13:00 77 24 109/58 99 Intake and Output 09/16/18 09/17/18 09/17/18 23:59 07:59 15:59 Intake Total 1564 / 5252 1428 / 2264 836 / 2264 Output Total 139 / 598 205 / 340 135 / 340 Balance 1425 / 4654 1223 / 1924 701 / 1924 Intake: IV Fluids 1464 / 5152 1428 / 2149 721 / 2149 PrismaSATE BGK 4/2.5 5,000 ML @ 0 / 0 0 / 0 0 / 0 1500 mls/hr CRRT CONT [facility] Rx#: [id number] PRECEDEX Premix 400 mcg In 100 60 / 260 0 / 40 40 / 40 ml @ 0.2 MCG/KG/HR 5.736 mls/hr IVC .[id number] [facility] Rx#: [id number] FentaNYL (PF) 1,000 MCG In 0.9 100 / 100 % Sodium Chloride 80 ML @ 50 MCG/HR 5 mls/hr IVC CONT [facility] Rx #:[id number] Levophed 4 MG In Dextrose 5% 254 / 883 278 / 308 30 / 308 250 ML @ 8 MCG/MIN 30.48 mls/hr IVC CONT [facility] Rx#:[id number] Sodium Bicarbonate 50 MEQ In 0. 1050 / 3150 1050 / 1450 400 / 1450 45% Sodium Chloride 1000 Ml 1000 Ml 1,000 ML @ 125 mls/hr IVC .[id number] [facility] Rx#:[id number] Amiodarone Premix 150mg/100mL 100 / 100 150 mg In 100 ml @ 300 mls/hr IVPB ONCE ONE Rx#:[id number] Zosyn 3.375 GM In 0.9 % Sodium 100 / 100 100 / 100 Chloride (Mini-Bag +) 100 ML @ 25 mls/hr IVPB Q8HR [facility] Rx#: [id number] Vitamin B-1 100 MG In Dextrose 51 / 51 5% 50 ML @ 50 mls/hr IVPB DAILY [facility] Rx#:[id number] 0.9 % Sodium Chloride 1,000 ML 0 / 0 @ Per Protocol PRIME .Q0M [facility] Rx#:[id number] Oral 0 / 0 0 / 0 0 / 0 Tube Feeding 15 / 15 Free Water 100 / 100 100 / 100 Free Water Intake Amount 0 / 0 Output: Catheter 39 / 198 45 / 80 35 / 80 Gastric Drainage 100 / 400 160 / 260 100 / 260 Other: Weight 126.3 kg 129 kg 129 kg Fluid Removed by Prismaflex 179 135 177 Patient Weight 09/17/18 23:59 Weight 129 kg - Lab 09/17/18 03:15 09/17/18 03:15 Most recent lab results 09/17/18 09/17/18 03:15 05:43 ABG pH 7.40 ABG pCO2 41 ABG pO2 84 L ABG HCO3 26 ABG O2 Saturation 96 Calcium 6.6 L Phosphorus 4.9 H Magnesium 2.6 Consult Discharge Plan - Plan Referrals: [facility] [Primary Care Provider] -
[2018-09-17] MEDS: Lactulose Oral Soln 20 GM/30 ML UDC GTUBE SCH ×9 (12:49→23:55)
[2018-09-17] MEDS: FentaNYL (PF) 1,000 MCG in 0.9 % Sodium Chloride 80 ML IVC SCH ×2 (12:59→19:44)
[2018-09-17] MEDS ORDERED: Levofloxacin 500 MG/100 ML 500 MG/100 ML BAG IVPB SCH (13:00)
[2018-09-17] MEDS: Levofloxacin 750 MG/150 ML 750 MG/150 ML BAG IVPB SCH (16:15)
[2018-09-17] MEDS ORDERED: *HR* Heparin 5,000 UNIT/ML VIAL ONE (17:14)
--- NOTE | 2018-09-17 17:15 | Nephrology Progress Note ---
Date of Encounter: 09/17/18 Time of Encounter: 14:45 - Assessment and Plan (1) SPIKE (acute kidney injury) Current Visit: Yes Status: Acute FeNa 0.2%. Pre-renal pathology in setting of volume depletion secondary to GI hemorrhage, intractable nausea and vomiting, poor PO intake, cirrhosis, and chronic NSAID use at home. S/P placement of HD catheter on 09/14/18. Renal u/s showed the right kidney measures 10.9 cm in length and the left kidney measures 11.4 cm in length. No evidence of hydronephrosis or intrarenal stones. Renal venogram showed Large varices were noted flowing through splenorenal shunt. S/P emolization of splenorenal shunts with coils. Currently undergoing BBI. Creatinine improved from 4 -> 2.64. - Patient's renal function improving on BIB. - Continue IVF. - Avoid nephrotoxins. - Renal dose antibiotics. (2) Metabolic acidosis Current Visit: Yes Status: Resolved Resolved. pH 7.4 HCO3 26. - Discontinued sodium bicarb infusion. (3) Cirrhosis Current Visit: Yes Status: Acute Qualifiers: Hepatic cirrhosis type: other cirrhosis Qualified Code(s): K74.69 - Other cirrhosis of liver (4) Esophageal varices Current Visit: Yes Status: Acute Qualifiers: Esophageal varices type: unspecified type Esophageal varices bleeding: with bleeding Qualified Code(s): I85.01 - Esophageal varices with bleeding (5) GI bleed Current Visit: Yes Status: Acute Qualifiers: GI bleed type/associated pathology: unspecified gastrointestinal hemorrhage type Qualified Code(s): K92.2 - Gastrointestinal hemorrhage, unspecified (6) Anemia Current Visit: No Status: Acute Qualifiers: Anemia type: unspecified type Qualified Code(s): D64.9 - Anemia, unspecified (7) DM (diabetes mellitus), type 2 Current Visit: No Status: Chronic Qualifiers: 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 Objective - Vital Signs Vital signs: Vital Signs Temp Pulse Resp BP Pulse Ox 09/17/18 17:00 86 27 101/63 97 09/17/18 16:00 97.9 F 85 27 115/60 96 09/17/18 15:43 29 132/63 99 09/17/18 15:00 87 27 123/59 98 09/17/18 14:00 67 24 96/46 100 09/17/18 13:00 58 24 101/65 100 09/17/18 12:21 25 87/57 100 09/17/18 12:19 25 100 09/17/18 12:00 97.5 F L 85 25 112/74 100 09/17/18 11:00 94 25 100/52 100 09/17/18 10:00 95 25 72/60 100 09/17/18 09:00 95 27 95/71 100 09/17/18 08:00 96.7 F L 105 24 93/69 100 09/17/18 07:27 27 114/49 99 09/17/18 06:59 91 27 110/60 99 09/17/18 06:00 96 26 112/62 99 09/17/18 05:01 95 25 110/65 98 09/17/18 04:02 98 28 139/63 98 09/17/18 03:43 25 146/54 98 09/17/18 03:02 70 09/17/18 03:01 98 F 72 24 98/44 100 09/17/18 02:00 78 24 122/52 100 09/17/18 01:14 25 114/58 99 09/17/18 01:00 70 25 122/58 100 09/17/18 00:00 77 24 113/54 99 09/16/18 23:23 77 09/16/18 23:09 24 108/55 99 09/16/18 23:00 96.9 F L 72 24 115/55 100 09/16/18 22:01 65 24 113/54 100 09/16/18 21:00 60 24 117/61 100 09/16/18 20:19 24 117/61 100 09/16/18 19:20 95.7 F L 61 24 124/51 100 09/16/18 19:00 62 24 115/50 100 09/16/18 18:00 62 24 123/60 100 09/16/18 17:32 24 119/59 100 Intake and Output 09/17/18 09/17/18 09/17/18 07:59 15:59 23:59 Intake Total 1428 / 2643.0 1131.3 / 2643.0 83.7 / 2643.0 Output Total 205 / 363 154 / 363 4 / 363 Balance 1223 / 2280.0 977.3 / 2280.0 79.7 / 2280.0 Intake: IV Fluids 1428 / 2432.0 958.3 / 2432.0 45.7 / 2432.0 PrismaSATE BGK 4/2.5 5,000 ML @ 0 / 0 0 / 0 0 / 0 1500 mls/hr CRRT CONT [facility] Rx#: [id number] PRECEDEX Premix 400 mcg In 100 0 / 55.0 47.3 / 55.0 7.7 / 55.0 ml @ 0.2 MCG/KG/HR 5.736 mls/hr IVC .[id number] [facility] Rx#: [id number] FentaNYL (PF) 1,000 MCG In 0.9 100 / 118 18 / 118 % Sodium Chloride 80 ML @ 50 MCG/HR 5 mls/hr IVC CONT [facility] Rx #:[id number] Levophed 4 MG In Dextrose 5% 278 / 458 160 / 458 20 / 458 250 ML @ 8 MCG/MIN 30.48 mls/hr IVC CONT [facility] Rx#:[id number] Sodium Bicarbonate 50 MEQ In 0. 1050 / 1450 400 / 1450 45% Sodium Chloride 1000 Ml 1000 Ml 1,000 ML @ 125 mls/hr IVC .Q8H24M [facility] Rx#:[id number] Amiodarone Premix 150mg/100mL 100 / 100 150 mg In 100 ml @ 300 mls/hr IVPB ONCE ONE Rx#:[id number] Zosyn 3.375 GM In 0.9 % Sodium 100 / 200 100 / 200 Chloride (Mini-Bag +) 100 ML @ 25 mls/hr IVPB Q8HR [facility] Rx#: [id number] Vitamin B-1 100 MG In Dextrose 51 / 51 5% 50 ML @ 50 mls/hr IVPB DAILY [facility] Rx#:[id number] 0.9 % Sodium Chloride 1,000 ML 0 / 0 @ Per Protocol PRIME .Q0M [facility] Rx#:[id number] Oral 0 / 0 0 / 0 Tube Feeding 73 / 111 38 / 111 Free Water 100 / 100 Free Water Intake Amount 0 / 0 0 / 0 Output: Catheter 45 / 103 54 / 103 4 / 103 Gastric Drainage 160 / 260 100 / 260 Other: Weight 129 kg 129 kg 129 kg Fluid Removed by Prismaflex 135 83 73 Patient Weight 09/17/18 23:59 Weight 129 kg - General Appearance General appearance: Present: appears started age, obese EENT: Present: mucous membranes moist Neck: Present: no JVD Respiratory: Present: clear Cardiology: Present: no rub, no gallops, edema (+1 pitting pedal edema b/l), regular rate, regular rhythm, normal S1, normal S2 Gastrointestinal: Present: normoactive bowel sounds, no tenderness, no guarding, no organomegaly, no masses Additional Comments: No shifting fluid. Integumentary: Present: warm and dry Neurologic: Present: no focal deficit, no asterixis Musculoskeletal: Present: no deformities, no cyanosis, no clubbing Additional Comments: Intubated. - Lab 09/17/18 03:15 09/17/18 03:15 Most recent lab results 09/17/18 05:43 ABG pH 7.40 ABG pCO2 41 ABG pO2 84 L ABG HCO3 26 ABG O2 Saturation 96 Consult Discharge Plan - Plan [facility]errals: [facility] [Primary Care Provider] -
--- NOTE | 2018-09-17 17:47 | Pulmonology Progress Note ---
Date of Encounter: 09/17/18 Time of Encounter: 08:00 Assessment and Plan (1) Acute respiratory failure with hypoxia Current Visit: Yes Status: Acute Patient presenting with acute respiratory failure with hypoxia now complicated by bilateral airspace disease possible Pneumonia versus hydrostatic pulmonary edema. 09/17 patient is on CVVH now he developed ventilator associated pneumonia growing Escherichia coli patient is on broad-spectrum antibiotics (2) GI bleed Current Visit: Yes Status: Acute I reviewed the CT scan abdomen pelvis. 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 We will restart octreotide. To continue proton pump inhibitor. Patient is an ideal candidate for balloon occluded retrograde transvenous obliteration(BRTO). 09/17 patient had the gastric varices is had BRTO has old blood from the OG access hemoglobin is stable Qualifiers: GI bleed type/associated pathology: unspecified gastrointestinal hemorrhage type Qualified Code(s): K92.2 - Gastrointestinal hemorrhage, unspecified (3) Cirrhosis Current Visit: Yes Status: Acute Patient has alcoholics cirrhosis with questionable hepatitis C patient with meld around 25 with the most likely bleeding from gastric varices patient is high risk candidate with the TIPS procedure will pursue with BRTO. 09/17 patient has significant encephalopathy increasing the dose of lactulose. Getting the full dose every hour lactulose regimen till he gets his bowel movement. Qualifiers: Hepatic cirrhosis type: alcoholic cirrhosis Ascites presence: without ascites Qualified Code(s): K70.30 - Alcoholic cirrhosis of liver without ascites (4) GI bleed Current Visit: Yes Status: Acute Patient does not exhibit any signs of GI bleed to continue to trend hemoglobin. Qualifiers: GI bleed type/associated pathology: unspecified gastrointestinal hemorrhage type Qualified Code(s): K92.2 - Gastrointestinal hemorrhage, unspecified (5) Encephalopathy acute Current Visit: Yes Status: Acute Toxic/metabolic encephalopathy secondary to cirrhosis with pulmonary h ypertension. Complicated by GI bleed that was not the encephalopathy. Lactulose regimen (6) Pneumonia Current Visit: Yes Status: Acute Patient has increased secretion from endotracheal tube will send for culture with Gram stain to continue broad-spectrum antibiotics. 09/17 patient developed ventilator associated pneumonia sputum growing Escherichia coli. To continue broad-spectrum antibiotics de-escalate according to clinical response. Qualifiers: Pneumonia type: due to unspecified organism Laterality: bilateral Lung location: unspecified part of lung Qualified Code(s): J18.9 - Pneumonia, unspecified organism (7) DVT prophylaxis Current Visit: Yes Status: Acute To continue with SCDs. Subjective Principal diagnosis: UGI bleed Interval history: Patient had balloon occluded retrograde transvenous obliteration of gastrorenal shunt. Patient bleed from gastritis severe sepsis decently controlled. Patient liver function is deranged patient will get dialysis today. 09/17 patient is still has encephalopathy metabolic acidosis getting better with the dialysis. Objective PUL Vital signs: Last Vital Signs Temp 97.9 F 09/17/18 16:00 Pulse 86 09/17/18 17:00 Resp 27 09/17/18 17:00 BP 101/63 09/17/18 17:00 Pulse Ox 97 09/17/18 17:00 General appearance: no acute distress ENT: oropharynx moist Auscultation: bilateral: diminished breath sounds (Basilar diminished breath sounds) Cardiovascular: irregular rhythm Gastrointestinal: hypoactive bowel sounds Extremities: no cyanosis, edema unable to assess due to mental status Ventilator Settings Ventilator Settings: Ventilator Settings, Last 8 Hours Ventilator Tidal Volume 620 Setting Ventilator Tidal Volume 620 Setting Ventilator Tidal Volume 620 Setting Ventilator Tidal Volume 620 Setting Ventilator Tidal Volume 620 Setting Ventilator Tidal Volume 620 Setting Ventilator Tidal Volume 620 Setting Ventilator Tidal Volume 620 Setting Ventilator Tidal Volume 620 Setting Ventilator Tidal Volume 620 Setting Ventilator Respiratory Rate 24 Setting Ventilator Respiratory Rate 24 Setting Ventilator Respiratory Rate 24 Setting Ventilator Respiratory Rate 24 Setting Ventilator Respiratory Rate 24 Setting Ventilator Respiratory Rate 24 Setting Ventilator Respiratory Rate 24 Setting Ventilator Respiratory Rate 24 Setting Ventilator Respiratory Rate 24 Setting Ventilator Respiratory Rate 24 Setting Actual Respiratory Rate 27 Actual Respiratory Rate 27 Positive End Expiratory 8 Pressure Positive End Expiratory 8 Pressure Positive End Expiratory 8 Pressure Positive End Expiratory 8 Pressure Positive End Expiratory 8 Pressure Positive End Expiratory 8 Pressure Positive End Expiratory 8 Pressure Positive End Expiratory 8 Pressure Positive End Expiratory 8 Pressure Positive End Expiratory 8 Pressure Peak Inspiratory Airway 32 Pressure Peak Inspiratory Airway 23 Pressure Peak Inspiratory Airway 33 Pressure Peak Inspiratory Airway 33 Pressure Peak Inspiratory Airway 34 Pressure Peak Inspiratory Airway 34 Pressure Peak Inspiratory Airway 33 Pressure Peak Inspiratory Airway 32 Pressure Peak Inspiratory Airway 35 Pressure Peak Inspiratory Airway 34 Pressure Results - Laboratory Findings CBC and BMP: 09/17/18 03:15 09/17/18 03:15 ABG ABG pH 7.40 pH Units (7.32-7.45) 09/17/18 05:43 ABG pCO2 41 mmHg (35-45) 09/17/18 05:43 ABG pO2 84 mmHg (85-104) L 09/17/18 05:43 ABG O2 Saturation 96 % (95-98) 09/17/18 05:43 PT/INR, D-dimer PT 14.8 Seconds (9.4-12.1) H 09/14/18 23:50 Abnormal lab findings: Abnormal lab results WBC 24.2 K/mcL (4.3-11.1) H 09/17/18 03:15 RBC 3.07 M/mcL (4.19-5.50) L 09/17/18 03:15 Hgb 9.6 g/dL (12.9-16.9) L 09/17/18 03:15 Hct 29.1 % (37.5-50.1) L 09/17/18 03:15 MCV 101.8 fL (83.0-100.0) H 09/13/18 03:36 MCH 34.2 pg (28.0-33.3) H 09/13/18 03:36 RDW 19.9 % (11.5-14.5) H 09/17/18 03:15 Plt Count 69 K/mcL (140-400) L 09/17/18 03:15 MPV 13.5 fL (9.4-12.4) H 09/16/18 03:15 18.0 % (0-4) H 09/17/18 03:15 2.0 % (0) H 09/17/18 03:15 4.0 % (0) H 09/12/18 06:33 21.8 K/mcL (1.6-8.9) H 09/17/18 03:15 0.5 K/mcL (0.6-4.6) L 09/17/18 03:15 2.0 K/mcL (0.0-1.3) H 09/12/18 06:33 Nucleated RBCs/100 WBC 4.8 /100 WBC (0) H 09/17/18 03:15 Decreased (Normal) L 09/17/18 03:15 Immature Plt Fraction 17.9 % (1.1-6.1) H 09/17/18 03:15 2+ (Not Present) A 09/16/18 03:15 1+ (Not Present) A 09/17/18 03:15 1+ (Not Present) A 09/17/18 03:15 Present (Not Present) A 09/15/18 03:25 Present (Not Present) A 09/17/18 03:15 PT 14.8 Seconds (9.4-12.1) H 09/14/18 23:50 APTT 24.1 Seconds (26.0-36.0) L 09/11/18 05:18 ABG pH 7.25 pH Units (7.32-7.45) L 09/16/18 13:48 ABG pCO2 46 mmHg (35-45) H 09/16/18 13:48 ABG pO2 84 mmHg (85-104) L 09/17/18 05:43 ABG HCO3 20 mEq/L (21-27) L 09/16/18 13:48 ABG Total CO2 27 mEq/L (20-26) H 09/17/18 05:43 ABG O2 Saturation 82 % (95-98) L 09/16/18 13:48 ABG Base Excess -7 mEq/L (-2 to 3) L 09/16/18 13:48 Sodium 146 mEq/L (136-145) H 09/16/18 03:15 Potassium 5.7 mEq/L (3.5-5.1) H D 09/11/18 06:07 Chloride 109 mEq/L (98-107) H 09/17/18 03:15 Carbon Dioxide 20 mEq/L (23-29) L 09/16/18 03:15 BUN 65 mg/dL (8-23) H 09/17/18 03:15 2.64 mg/dL (0.70-1.30) H 09/17/18 03:15 Est GFR ( Amer) 29 (> 60) L 09/17/18 03:15 Est GFR (Non-Af Amer) 24 (> 60) L 09/17/18 03:15 27 (6-26) H 09/16/18 03:15 Glucose 121 mg/dL (70-105) H 09/17/18 03:15 POC Glucose 127 mg/dL (70-99) H 09/17/18 17:11 308 (280-300) H 09/17/18 03:15 Lactic Acid 2.3 mmol/L (0.5-2.2) H 09/16/18 08:25 Calcium 6.6 mg/dL (8.6-10.3) L 09/17/18 03:15 Phosphorus 4.9 mg/dL (2.7-4.5) H 09/17/18 03:15 Magnesium 3.2 mg/dL (1.6-2.6) H 09/16/18 03:15 7.0 mg/dL (0.3-1.0) H 09/17/18 03:15 4.9 mg/dL (0.0-0.2) H 09/17/18 03:15 2.1 mg/dL (0.0-1.2) H 09/17/18 03:15 AST 170 Units/L (13-39) H 09/17/18 03:15 ALT 88 Units/L (7-52) H 09/17/18 03:15 56 mcmol/L (16-53) H 09/10/18 11:19 0.09 ng/mL (< 0.04) H* 09/10/18 23:52 4.3 g/dL (6.4-8.9) L 09/17/18 03:15 2.5 g/dL (3.5-5.7) L 09/17/18 03:15 1.8 g/dL (2.4-3.5) L 09/17/18 03:15 Stool Occult Bld Scrn Positive (Negative) A 09/10/18 11:33 Vancomycin Trough 13 mcg/mL (5-10) H 09/15/18 11:30 Hep Bs Antibody < 3.10 mIU/mL (10.00-) L 09/15/18 11:30 Crossmatch See Detail 09/14/18 23:50 - Microbiology Findings Microbiology Findings: Microbiology, Last 48 Hours 09/14/18 21:00 Sputum Culture - Preliminary Aspirate Escherichia coli - Clinical Findings Intake & Output: Intake & Output 09/17/18 09/17/18 09/17/18 07:59 15:59 23:59 Intake Total 1428 / 2643.0 1131.3 / 2643.0 83.7 / 2643.0 Output Total 205 / 363 154 / 363 4 / 363 Balance 1223 / 2280.0 977.3 / 2280.0 79.7 / 2280.0 Weight 129 kg 129 kg 129 kg Consult Discharge Plan - Plan [facility]errals: [facility] [Primary Care Provider] - Critical Care Time Critical Care Time: Yes Total Critical Care Time: 45 Attestation: I spent 45 minutes of Critical Care time with this patient. It involved decision making of high complexity to assess, manipulate, and support vital organ system failure and/or to prevent further life threatening deterioration of the patient's condition. The time involved in the performance of separately reportable procedures was not counted toward critical care time.
--- NOTE | 2018-09-17 18:17 | Electrocardiograph Report ---
[address] [address] Test Date: 2018-09-17 Pat Name: Lito Oro Department: 109 Room: [facility] Gender: M Foxing Closer: : 1950 Requested By: Miguel Lima Order Number: [id number] Reading MD: Anaid Springer Measurements Intervals [place] Rate: 77 P: 43 [place]: 200 QRS: -11 QRSD: 120 T: 77 QT: 417 QTc: 449 Interpretive Statements SINUS RHYTHM WITH FREQUENT SUPRAVENTRICULAR PREMATURE COMPLEXES MODERATE INTRAVENTRICULAR CONDUCTION DELAY NONSPECIFIC T-WAVE ABNORMALITY ABNORMAL RHYTHM ECG Electronically Signed On 09-17-2018 18:15:35 EDT by Anaid Springer
[2018-09-18 02:50] LABS: ABG Base Excess 1 mEq/L (-2 to 3); ABG HCO3 26 mEq/L (21-27); ABG Oxygen Saturation 98 % (95-98); ABG PCO2 39 mmHg (35-45); ABG PH 7.42 pH Units (7.32-7.45); ABG PO2 102 mmHg (85-104); ABG TCO2 27 mEq/L (20-26); Blood Gas Modality PRVC; Blood Gas PEEP 8 cm H2O; Blood Gas Respiration Rate 24; Blood Gas VT 620 cc
[2018-09-18] MEDS: Lactulose Oral Soln 20 GM/30 ML UDC GTUBE SCH ×7 (02:54→08:56)
[2018-09-18] MEDS: FentaNYL (PF) 1,000 MCG in 0.9 % Sodium Chloride 80 ML IVC SCH ×4 (03:01→21:42)
[2018-09-18] MEDS: Artificial Tears SOLN 15 ML BOTTLE BOTH EYES SCH ×5 (03:02→19:53)
[2018-09-18] MEDS: PrismaSATE BGK 4/2.5 5,000 ML CRRT SCH ×18 (03:10→22:47)
[2018-09-18] MEDS: Norepinephrine 4 MG in D5% in Water 250 ML IVC SCH ×4 (03:40→20:15)
[2018-09-18] MEDS: Ipratropium/Albuterol Neb 3 ML IH SCH ×6 (03:42→23:47)
[2018-09-18 04:45] LABS: ABG Base Excess 1 mEq/L (-2 to 3); ABG HCO3 26 mEq/L (21-27); ABG Oxygen Saturation 96 % (95-98); ABG PCO2 42 mmHg (35-45); ABG PH 7.41 pH Units (7.32-7.45); ABG PO2 85 mmHg (85-104); ABG TCO2 28 mEq/L (20-26); Blood Gas Modality ASSIST CONTROL; Blood Gas PEEP 8 cm H2O; Blood Gas Respiration Rate 24; Blood Gas VT 620 cc
[2018-09-18 04:47] LABS: Mean Platelet Volume 12.7 fL (9.4-12.4)
[2018-09-18 04:49] LABS: Hematocrit 31.1 % (37.5-50.1); Hemoglobin 10.1 g/dL (12.9-16.9); Mean Corpuscular HGB Conc 32.5 g/dL (31.6-35.5); Mean Corpuscular Hemoglobin 30.5 pg (28.0-33.3); Nucleated Red Blood Cells 2.1 /100 WBC (0); Red Blood Count 3.31 M/mcL (4.19-5.50); Red Cell Distribution Width 19.7 % (11.5-14.5)
[2018-09-18 05:00] LABS: Platelet Count 67 K/mcL (140-400)
[2018-09-18 05:05] LABS: Calcium 7.3 mg/dL (8.6-10.3); Magnesium 2.6 mg/dL (1.6-2.6); Phosphorous 2.8 mg/dL (2.7-4.5); Potassium 4.1 mEq/L (3.5-5.1)
[2018-09-18 05:06] LABS: Albumin 2.6 g/dL (3.5-5.7); Albumin/Globulin Ratio 1.3 (1.1-2.2); Bilirubin,Direct 5.7 mg/dL (0.0-0.2); Bilirubin,Indirect 2.5 mg/dL (0.0-1.2); Bilirubin,Total 8.2 mg/dL (0.3-1.0); Total Protein 4.6 g/dL (6.4-8.9)
[2018-09-18] MEDS: Insulin LISPRO 300 UNITS/3 ML VIAL SQ SCH ×3 (06:26→18:09)
[2018-09-18 07:12] LABS: Anisocytosis 1+ (Not Present); Hypochromasia Present (Not Present); Lymphocytes # 2.2 K/mcL (0.6-4.6); Monocytes # 0.6 K/mcL (0.0-1.3); Neutrophils # 25.1 K/mcL (1.6-8.9); Platelet Estimate Decreased (Normal); Polychromasia 1+ (Not Present)
[2018-09-18 07:13] LABS: Macrocytosis Present (Not Present)
[2018-09-18] MEDS: Pantoprazole 40 MG in 0.9 % Sodium Chloride Mini Bag 100 ML IVC SCH (08:14)
[2018-09-18] MEDS: Octreotide 400 MCG in 0.9 % Sodium Chloride 100 ML IVC SCH (08:14)
[2018-09-18] MEDS: Pantoprazole 40 MG VIAL IVP SCH (08:55)
[2018-09-18] MEDS: Chlorhexidine Rinse 15 ML MOUTHWASH MM SCH ×2 (08:55→20:46)
[2018-09-18] MEDS: Amiodarone Premix 360 MG/200 ML BAG IVC SCH ×2 (08:55→20:51)
[2018-09-18] MEDS: Thiamine (B-1) 100 MG in D5% in Water 50 ML IVPB SCH (08:56)
[2018-09-18] MEDS: Dexmedetomidine HCl 400 MCG/100 ML MLS IVC SCH ×2 (09:05→17:47)
[2018-09-18] MEDS: Lactulose Oral Soln 20 GM/30 ML UDC PO SCH ×3 (09:48→20:46)
[2018-09-18] MEDS ORDERED: *HR* Heparin 5,000 UNIT/ML VIAL ONE ×3 (09:51→18:45)
[2018-09-18] MEDS: *HR* Heparin 5,000 UNIT/ML VIAL IV PRN (10:26)
--- NOTE | 2018-09-18 10:41 | Palliative Progress Note ---
Date of Encounter: 09/18/18 Time of Encounter: 10:35 - Assessment and plan (1) Generalized pain Current Visit: Yes Status: Acute Assessment and plan: Fentanyl per ICU protocol - currently at 150mcg/hr. (2) Altered mental status Current Visit: No Status: Acute Assessment and plan: Improved this am, will follow simple commands. Lactulose continues. Qualifiers: Altered mental status type: transient alteration of awareness Qualified Code(s): R40.4 - Transient alteration of awareness (3) Goals of care, counseling/discussion Current Visit: Yes Status: Acute Assessment and plan: Spoke with ELIZABETH David and gave clinical update. She is aware and pleased his mental status is improved, but did inform here that WBC continuing to elevate, and CT Chest/ABD/Pelvis would be completed as well as cultures, understands he is still critical. She will try to visit later today. Code status was changed to DNR-Arrest yesterday. 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 (4) Palliative care encounter Current Visit: Yes Status: Acute (5) Toxic metabolic encephalopathy Current Visit: No Status: Acute (6) Chronic liver disease and cirrhosis Current Visit: No Status: Chronic (7) Gastrointestinal hemorrhage with melena Current Visit: No Status: Acute Assessment and plan: Hgb stable at 10.1. (8) SPIKE (acute kidney injury) Current Visit: Yes Status: Acute Assessment and plan: Remains on CRRT. Nephrology following closely. (9) Acute respiratory failure with hypoxia Current Visit: Yes Status: Acute - Time Spent With Patient Total time spent is greater than 50% in coordination of care (as documented) at patient's floor/unit and/or counseling patient: - Subjective Interval history: Patient remains lightly sedated on ventilator. Improved mental status this am, and does open eyes and respond when name called, nods head, and followed command to wiggle his toes. Jaundiced. Increasing leukocytosis at 27.9 this am. Liver enzymes have increased as well. Still requiring vasopressor support. - Constitutional Vitals: Abnormal lab results WBC 27.9 K/mcL (4.3-11.1) H 09/18/18 04:30 RBC 3.31 M/mcL (4.19-5.50) L 09/18/18 04:30 Hgb 10.1 g/dL (12.9-16.9) L 09/18/18 04:30 Hct 31.1 % (37.5-50.1) L 09/18/18 04:30 MCV 101.8 fL (83.0-100.0) H 09/13/18 03:36 MCH 34.2 pg (28.0-33.3) H 09/13/18 03:36 RDW 19.7 % (11.5-14.5) H 09/18/18 04:30 Plt Count 67 K/mcL (140-400) L 09/18/18 04:30 MPV 12.7 fL (9.4-12.4) H 09/18/18 04:30 6.0 % (0-4) H 09/18/18 04:30 2.0 % (0) H 09/17/18 03:15 4.0 % (0) H 09/12/18 06:33 25.1 K/mcL (1.6-8.9) H 09/18/18 04:30 0.5 K/mcL (0.6-4.6) L 09/17/18 03:15 2.0 K/mcL (0.0-1.3) H 09/12/18 06:33 Nucleated RBCs/100 WBC 2.1 /100 WBC (0) H 09/18/18 04:30 Decreased (Normal) L 09/18/18 04:30 Immature Plt Fraction 17.9 % (1.1-6.1) H 09/17/18 03:15 1+ (Not Present) A 09/18/18 04:30 Present (Not Present) A 09/18/18 04:30 1+ (Not Present) A 09/17/18 03:15 1+ (Not Present) A 09/18/18 04:30 Present (Not Present) A 09/15/18 03:25 Present (Not Present) A 09/18/18 04:30 PT 14.8 Seconds (9.4-12.1) H 09/14/18 23:50 APTT 24.1 Seconds (26.0-36.0) L 09/11/18 05:18 ABG pH 7.25 pH Units (7.32-7.45) L 09/16/18 13:48 ABG pCO2 46 mmHg (35-45) H 09/16/18 13:48 ABG pO2 84 mmHg (85-104) L 09/17/18 05:43 ABG HCO3 20 mEq/L (21-27) L 09/16/18 13:48 ABG Total CO2 28 mEq/L (20-26) H 09/18/18 04:42 ABG O2 Saturation 82 % (95-98) L 09/16/18 13:48 ABG Base Excess -7 mEq/L (-2 to 3) L 09/16/18 13:48 Sodium 146 mEq/L (136-145) H 09/16/18 03:15 Potassium 5.7 mEq/L (3.5-5.1) H D 09/11/18 06:07 Chloride 109 mEq/L (98-107) H 09/17/18 03:15 Carbon Dioxide 20 mEq/L (23-29) L 09/16/18 03:15 BUN 32 mg/dL (8-23) H 09/18/18 04:30 1.60 mg/dL (0.70-1.30) H 09/18/18 04:30 Est GFR ( Amer) 52 (> 60) L 09/18/18 04:30 Est GFR (Non-Af Amer) 43 (> 60) L 09/18/18 04:30 27 (6-26) H 09/16/18 03:15 Glucose 154 mg/dL (70-105) H 09/18/18 04:30 POC Glucose 162 mg/dL (70-99) H 09/18/18 06:14 308 (280-300) H 09/17/18 03:15 Lactic Acid 2.3 mmol/L (0.5-2.2) H 09/16/18 08:25 Calcium 7.3 mg/dL (8.6-10.3) L 09/18/18 04:30 Phosphorus 4.9 mg/dL (2.7-4.5) H 09/17/18 03:15 Magnesium 3.2 mg/dL (1.6-2.6) H 09/16/18 03:15 8.2 mg/dL (0.3-1.0) H 09/18/18 04:30 5.7 mg/dL (0.0-0.2) H 09/18/18 04:30 2.5 mg/dL (0.0-1.2) H 09/18/18 04:30 AST 211 Units/L (13-39) H 09/18/18 04:30 ALT 107 Units/L (7-52) H 09/18/18 04:30 135 Units/L (34-104) H 09/18/18 04:30 56 mcmol/L (16-53) H 09/10/18 11:19 0.09 ng/mL (< 0.04) H* 09/10/18 23:52 4.6 g/dL (6.4-8.9) L 09/18/18 04:30 2.6 g/dL (3.5-5.7) L 09/18/18 04:30 2.0 g/dL (2.4-3.5) L 09/18/18 04:30 Stool Occult Bld Scrn Positive (Negative) A 09/10/18 11:33 Vancomycin Trough 13 mcg/mL (5-10) H 09/15/18 11:30 Hep Bs Antibody < 3.10 mIU/mL (10.00-) L 09/15/18 11:30 Crossmatch See Detail 09/14/18 23:50 General appearance: Present: no acute distress - Respiratory Respiratory exam: Present: decreased breath sounds, CTAB - Cardiovascular Cardiovascular exam: Present: +S1, +S2 - GI/Abdominal GI/Abdominal exam: Present: diminished bowel sounds, distended, soft - Additional comments: Rivera with scant amount dk ana maria urine - Extremities Exam Additional comments: Generalized edema - weeping noted to upper extremities - Neurological Exam Neurological exam: Present: alert Additional comments: Opens eyes when name called. Follows few simple commands. - Skin Skin exam: Present: pallor, warm Palliative Quality Palliative Quality: Screen for Code Status: NA (Awaiting POA), Screen for Goals of Care: NA, Screen for Pain: Yes, If Pain Regimen Started, Initiate Bowel Regimen: NA, Screen for Nausea/Vomitting: NA Code Status: 09/10/18 15:52 Resuscitation Status: Active [RES] Routine Comment: Resuscitation Status: Full Code 09/17/18 14:58 DNR [Resuscitation Status: Active] [RES] Routine Comment: Resuscitation Status: DNR-Comfort Care-Arrest - Labs CBC & Chem 7: 09/18/18 04:30 09/18/18 04:30 Labs: Laboratory Results - last 24 hr 09/17/18 09/17/18 09/17/18 11:18 17:11 23:51 WBC RBC Hgb Hct MCV MCH MCHC RDW Plt Count MPV Seg Neutrophils % Band Neutrophils % Lymphocytes % Monocytes % Neutrophils # Lymphocytes # Monocytes # Nucleated RBCs/100 WBC Platelet Estimate Polychromasia Hypochromasia Anisocytosis Macrocytosis Sample Site ABG pH ABG pCO2 ABG pO2 ABG HCO3 ABG Total CO2 ABG O2 Saturation ABG Base Excess Piyush Test Respiration Rate O2 Delivery Device Blood Gas Modality Inspired O2 Tidal Volume PEEP Sodium Potassium Chloride Carbon Dioxide BUN Creatinine Est GFR ( Amer) Est GFR (Non-Af Amer) BUN/Creatinine Ratio Glucose POC Glucose 100 H 127 H 156 H Calculated Osmolality Calcium Phosphorus Magnesium Total Bilirubin Direct Bilirubin Indirect Bilirubin AST ALT Alkaline Phosphatase Serum Total Protein Albumin Globulin Albumin/Globulin Ratio 09/18/18 09/18/18 09/18/18 02:46 04:30 04:30 WBC 27.9 H RBC 3.31 L Hgb 10.1 L Hct 31.1 L MCV 94.0 MCH 30.5 MCHC 32.5 RDW 19.7 H Plt Count 67 L MPV 12.7 H Seg Neutrophils % 84.0 Band Neutrophils % 6.0 H Lymphocytes % 8.0 Monocytes % 2.0 Neutrophils # 25.1 H Lymphocytes # 2.2 Monocytes # 0.6 Nucleated RBCs/100 WBC 2.1 H Platelet Estimate Decreased L Polychromasia 1+ A Hypochromasia Present A Anisocytosis 1+ A Macrocytosis Present A Sample Site L Radial ABG pH 7.42 ABG pCO2 39 ABG pO2 102 ABG HCO3 26 ABG Total CO2 27 H ABG O2 Saturation 98 ABG Base Excess 1 Piyush Test N/A Respiration Rate 24 O2 Delivery Device Adult Vent Blood Gas Modality PRVC Inspired O2 50.0 Tidal Volume 620 PEEP 8 Sodium 139 Potassium 4.1 Chloride 105 Carbon Dioxide 25 BUN 32 H Creatinine 1.60 H Est GFR ( Amer) 52 L Est GFR (Non-Af Amer) 43 L BUN/Creatinine Ratio 20 Glucose 154 H POC Glucose Calculated Osmolality 298 Calcium 7.3 L Phosphorus 2.8 Magnesium 2.6 Total Bilirubin Direct Bilirubin Indirect Bilirubin AST ALT Alkaline Phosphatase Serum Total Protein Albumin Globulin Albumin/Globulin Ratio 09/18/18 09/18/18 09/18/18 04:30 04:42 06:14 WBC RBC Hgb Hct MCV MCH MCHC RDW Plt Count MPV Seg Neutrophils % Band Neutrophils % Lymphocytes % Monocytes % Neutrophils # Lymphocytes # Monocytes # Nucleated RBCs/100 WBC Platelet Estimate Polychromasia Hypochromasia Anisocytosis Macrocytosis Sample Site L Radial ABG pH 7.41 ABG pCO2 42 ABG pO2 85 ABG HCO3 26 ABG Total CO2 28 H ABG O2 Saturation 96 ABG Base Excess 1 Piyush Test N/A Respiration Rate 24 O2 Delivery Device Adult Vent Blood Gas Modality ASSIST CONTROL Inspired O2 50.0 Tidal Volume 620 PEEP 8 Sodium Potassium Chloride Carbon Dioxide BUN Creatinine Est GFR ( Amer) Est GFR (Non-Af Amer) BUN/Creatinine Ratio Glucose POC Glucose 162 H Calculated Osmolality Calcium Phosphorus Magnesium Total Bilirubin 8.2 H Direct Bilirubin 5.7 H Indirect Bilirubin 2.5 H AST 211 H ALT 107 H Alkaline Phosphatase 135 H Serum Total Protein 4.6 L Albumin 2.6 L Globulin 2.0 L Albumin/Globulin Ratio 1.3 - Impressions Impressions Chest X-Ray 09/18/18 04:00 IMPRESSION: No significant interval change in bilateral airspace opacities. D/ / Ivania Marinelli MD / Ivania Marinelli MD Interpreting Provider: Ivania Marinelli MD - ABG Interpretation ABG results: ABG ABG pH 7.41 pH Units (7.32-7.45) 09/18/18 04:42 ABG pCO2 42 mmHg (35-45) 09/18/18 04:42 ABG pO2 85 mmHg (85-104) 09/18/18 04:42 ABG O2 Saturation 96 % (95-98) 09/18/18 04:42 PT/INR, D-dimer PT 14.8 Seconds (9.4-12.1) H 09/14/18 23:50 Consult Discharge Plan - Plan [facility]errals: [facility] [Primary Care Provider] -
--- NOTE | 2018-09-18 11:41 | Nephrology Progress Note ---
Date of Encounter: 09/18/18 Time of Encounter: 09:10 - Assessment and Plan (1) SPIKE (acute kidney injury) Current Visit: Yes Status: Acute Kwame 0.2%. Pre-renal pathology in setting of volume depletion secondary to GI hemorrhage, intractable nausea and vomiting, poor PO intake, cirrhosis, and chronic NSAID use at home. S/P placement of HD catheter on 09/14/18. Renal u/s showed the right kidney measures 10.9 cm in length and the left kidney measures 11.4 cm in length. No evidence of hydronephrosis or intrarenal stones. Renal venogram showed Large varices were noted flowing through splenorenal shunt. S/P emolization of splenorenal shunts with coils. Currently undergoing BIB. Creatinine removed under BIB: 2.64 down to 1.60 today. Poor UOP: 111 ml. Hypotensive with BP 97/76. - Although patient has a poor UOP, would not recommend taking additional fluid out on BIB due to hypotensive status. Continue BIB with current settings. - Given patient's elevated transaminases, would not recommend starting on citrate. Also, due to cirrhotic state, would not recommend heparin for his dialysis lines as well. - Continue IVF. - Avoid nephrotoxins. - Renal dose antibiotics. (2) Cirrhosis Current Visit: Yes Status: Acute Qualifiers: Hepatic cirrhosis type: other cirrhosis Qualified Code(s): K74.69 - Other cirrhosis of liver (3) Esophageal varices Current Visit: Yes Status: Acute Qualifiers: Esophageal varices type: unspecified type Esophageal varices bleeding: with bleeding Qualified Code(s): I85.01 - Esophageal varices with bleeding (4) GI bleed Current Visit: Yes Status: Acute Qualifiers: GI bleed type/associated pathology: unspecified gastrointestinal hemorrhage type Qualified Code(s): K92.2 - Gastrointestinal hemorrhage, unspecified (5) Anemia Current Visit: No Status: Acute Qualifiers: Anemia type: unspecified type Qualified Code(s): D64.9 - Anemia, unspecified (6) DM (diabetes mellitus), type 2 Current Visit: No Status: Chronic Qualifiers: Diabetes mellitus residential insulin use: 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 Objective - Vital Signs Vital signs: Vital Signs Temp Pulse Resp BP Pulse Ox 09/18/18 11:00 67 27 111/47 100 09/18/18 10:00 67 31 104/72 100 09/18/18 09:55 30 100 09/18/18 09:00 65 31 113/67 100 09/18/18 08:00 97.1 F L 63 25 97/76 99 09/18/18 07:35 24 97 09/18/18 07:00 51 24 72/43 95 09/18/18 06:00 96.5 F L 61 28 103/58 97 09/18/18 05:13 28 114/58 97 09/18/18 05:00 62 28 96/59 97 09/18/18 04:00 96.4 F L 61 28 105/60 98 09/18/18 03:55 60 09/18/18 03:44 26 120/60 98 09/18/18 03:00 61 30 103/78 98 09/18/18 02:00 94.6 F L 61 27 106/65 98 09/18/18 01:23 29 97 09/18/18 01:00 65 29 107/59 97 09/18/18 00:00 96.5 F L 66 28 108/77 97 09/17/18 23:46 68 09/17/18 23:16 26 97 09/17/18 23:00 67 26 120/53 97 09/17/18 22:12 25 116/94 98 09/17/18 22:00 97.2 F L 67 26 116/94 98 09/17/18 21:00 60 24 91/45 94 09/17/18 20:00 99.2 F 62 26 70/43 95 09/17/18 19:49 28 97/54 93 09/17/18 19:45 81 09/17/18 19:00 85 27 92/61 94 09/17/18 18:00 86 27 100/52 95 09/17/18 17:00 86 27 101/63 97 09/17/18 16:00 97.9 F 85 27 115/60 96 09/17/18 15:43 29 132/63 99 09/17/18 15:00 87 27 123/59 98 09/17/18 14:00 67 24 96/46 100 09/17/18 13:00 58 24 101/65 100 09/17/18 12:21 25 87/57 100 09/17/18 12:19 25 100 09/17/18 12:00 97.5 F L 85 25 112/74 100 Intake and Output 09/17/18 09/18/18 09/18/18 23:59 07:59 15:59 Intake Total 945.0 / 3536.3 931.4 / 1518.0 586.6 / 1518.0 Output Total 547 / 1011 817 / 832 15 / 832 Balance 398.0 / 2525.3 114.4 / 686.0 571.6 / 686.0 Intake: IV Fluids 739.0 / 3125.3 622.4 / 984.0 361.6 / 984.0 PrismaSATE BGK 4/2.5 5,000 ML @ 0 / 0 0 / 0 0 / 0 1500 mls/hr CRRT CONT [facility] Rx#: [id number] Amiodarone Drip Premix 360mg/ 149.8 / 149.8 131.9 / 187.6 55.7 / 187.6 200mL 360 mg In 200 ml @ 0.5 MG /MIN 16.667 mls/hr IVC CONT [facility] Rx#:[id number] PRECEDEX Premix 400 mcg In 100 99.8 / 147.1 100.3 / 122.5 22.2 / 122.5 ml @ 0.2 MCG/KG/HR 5.736 mls/hr IVC .[id number] [facility] Rx#: [id number] FentaNYL (PF) 1,000 MCG In 0.9 142.1 / 242.1 131.5 / 179.1 47.6 / 179.1 % Sodium Chloride 80 ML @ 50 MCG/HR 5 mls/hr IVC CONT [facility] Rx #:[id number] Levophed 4 MG In Dextrose 5% 197.3 / 635.3 258.7 / 434.7 176.0 / 434.7 250 ML @ 8 MCG/MIN 30.48 mls/hr IVC CONT [facility] Rx#:[id number] Levaquin Premix 750mg/150 mL 150 / 150 750 mg In 150 ml @ 100 mls/hr IVPB DAILY@1600 [facility] Rx#: [id number] Vitamin B-1 100 MG In Dextrose 60.1 / 60.1 5% 50 ML @ 50 mls/hr IVPB DAILY [facility] Rx#:[id number] Tube Feeding 206 / 311 309 / 474 165 / 474 Free Water 60 / 60 Free Water Intake Amount 0 / 0 Output: Bib 535 / 635 797 / 797 Catheter 12 / 116 35 Other: Stool Size Moderate Stool Consistency liquid Stool Color Brown Weight 129 kg 129.5 kg 129.5 kg Blood Glucose* 162 Fluid Removed by Prismaflex 85 92 0 Patient Weight 09/18/18 23:59 Weight 129.5 kg - General Appearance General appearance: Present: appears started age, obese, intubated EENT: Present: scleral icterus Neck: Present: no JVD Respiratory: Present: clear Cardiology: Present: no murmurs, no rub, no gallops, edema (+1 pitting edema b/l), regular rate, regular rhythm, normal S1, normal S2 Gastrointestinal: Present: normoactive bowel sounds, no tenderness, no guarding, no organomegaly, no masses Integumentary: Present: warm and dry Neurologic: Present: no focal deficit Musculoskeletal: Present: no deformities, no cyanosis, no clubbing Additional Comments: Sedated. - Lab 09/18/18 04:30 09/18/18 04:30 Most recent lab results 09/18/18 09/18/18 09/18/18 02:46 04:30 04:42 ABG pH 7.42 7.41 ABG pCO2 39 42 ABG pO2 102 85 ABG HCO3 26 26 ABG O2 Saturation 98 96 Calcium 7.3 L Phosphorus 2.8 Magnesium 2.6 Consult Discharge Plan - Plan Referrals: [facility] [Primary Care Provider] -
--- NOTE | 2018-09-18 13:19 | Pulmonology Progress Note ---
<SarojWayne W - Last Filed: 09/18/18 13:39> Date of Encounter: 09/18/18 Objective PUL Vital signs: Last Vital Signs Temp 96.8 F L 09/18/18 12:00 Pulse 54 09/18/18 13:00 Resp 24 09/18/18 13:00 BP 93/53 09/18/18 13:00 Pulse Ox 99 09/18/18 13:00 Ventilator Settings Ventilator Settings: Ventilator Settings, Last 8 Hours Ventilator Tidal Volume 620 Setting Ventilator Tidal Volume 620 Setting Ventilator Tidal Volume 620 Setting Ventilator Tidal Volume 620 Setting Ventilator Tidal Volume 620 Setting Ventilator Tidal Volume 620 Setting Ventilator Tidal Volume 620 Setting Ventilator Tidal Volume 620 Setting Ventilator Tidal Volume 620 Setting Ventilator Respiratory Rate 24 Setting Ventilator Respiratory Rate 24 Setting Ventilator Respiratory Rate 24 Setting Ventilator Respiratory Rate 24 Setting Ventilator Respiratory Rate 24 Setting Ventilator Respiratory Rate 24 Setting Ventilator Respiratory Rate 24 Setting Ventilator Respiratory Rate 24 Setting Ventilator Respiratory Rate 24 Setting Actual Respiratory Rate 31 Actual Respiratory Rate 27 Actual Respiratory Rate 28 Actual Respiratory Rate 24 Actual Respiratory Rate 24 Actual Respiratory Rate 28 Positive End Expiratory 8 Pressure Positive End Expiratory 8 Pressure Positive End Expiratory 8 Pressure Positive End Expiratory 8 Pressure Positive End Expiratory 8 Pressure Positive End Expiratory 8 Pressure Positive End Expiratory 8 Pressure Positive End Expiratory 8 Pressure Positive End Expiratory 8 Pressure Peak Inspiratory Airway 36 Pressure Peak Inspiratory Airway 38 Pressure Peak Inspiratory Airway 39 Pressure Peak Inspiratory Airway 34 Pressure Peak Inspiratory Airway 28 Pressure Peak Inspiratory Airway 25 Pressure Peak Inspiratory Airway 34 Pressure Peak Inspiratory Airway 33 Pressure Peak Inspiratory Airway 23 Pressure Results - Laboratory Findings CBC and BMP: 09/18/18 04:30 09/18/18 04:30 ABG ABG pH 7.41 pH Units (7.32-7.45) 09/18/18 04:42 ABG pCO2 42 mmHg (35-45) 09/18/18 04:42 ABG pO2 85 mmHg (85-104) 09/18/18 04:42 ABG O2 Saturation 96 % (95-98) 09/18/18 04:42 PT/INR, D-dimer PT 14.8 Seconds (9.4-12.1) H 09/14/18 23:50 Abnormal lab findings: Abnormal lab results WBC 27.9 K/mcL (4.3-11.1) H 09/18/18 04:30 RBC 3.31 M/mcL (4.19-5.50) L 09/18/18 04:30 Hgb 10.1 g/dL (12.9-16.9) L 09/18/18 04:30 Hct 31.1 % (37.5-50.1) L 09/18/18 04:30 MCV 101.8 fL (83.0-100.0) H 09/13/18 03:36 MCH 34.2 pg (28.0-33.3) H 09/13/18 03:36 RDW 19.7 % (11.5-14.5) H 09/18/18 04:30 Plt Count 67 K/mcL (140-400) L 09/18/18 04:30 MPV 12.7 fL (9.4-12.4) H 09/18/18 04:30 6.0 % (0-4) H 09/18/18 04:30 2.0 % (0) H 09/17/18 03:15 4.0 % (0) H 09/12/18 06:33 25.1 K/mcL (1.6-8.9) H 09/18/18 04:30 0.5 K/mcL (0.6-4.6) L 09/17/18 03:15 2.0 K/mcL (0.0-1.3) H 09/12/18 06:33 Nucleated RBCs/100 WBC 2.1 /100 WBC (0) H 09/18/18 04:30 Decreased (Normal) L 09/18/18 04:30 Immature Plt Fraction 17.9 % (1.1-6.1) H 09/17/18 03:15 1+ (Not Present) A 09/18/18 04:30 Present (Not Present) A 09/18/18 04:30 1+ (Not Present) A 09/17/18 03:15 1+ (Not Present) A 09/18/18 04:30 Present (Not Present) A 09/15/18 03:25 Present (Not Present) A 09/18/18 04:30 PT 14.8 Seconds (9.4-12.1) H 09/14/18 23:50 APTT 24.1 Seconds (26.0-36.0) L 09/11/18 05:18 ABG pH 7.25 pH Units (7.32-7.45) L 09/16/18 13:48 ABG pCO2 46 mmHg (35-45) H 09/16/18 13:48 ABG pO2 84 mmHg (85-104) L 09/17/18 05:43 ABG HCO3 20 mEq/L (21-27) L 09/16/18 13:48 ABG Total CO2 28 mEq/L (20-26) H 09/18/18 04:42 ABG O2 Saturation 82 % (95-98) L 09/16/18 13:48 ABG Base Excess -7 mEq/L (-2 to 3) L 09/16/18 13:48 Sodium 146 mEq/L (136-145) H 09/16/18 03:15 Potassium 5.7 mEq/L (3.5-5.1) H D 09/11/18 06:07 Chloride 109 mEq/L (98-107) H 09/17/18 03:15 Carbon Dioxide 20 mEq/L (23-29) L 09/16/18 03:15 BUN 32 mg/dL (8-23) H 09/18/18 04:30 1.60 mg/dL (0.70-1.30) H 09/18/18 04:30 Est GFR ( Amer) 52 (> 60) L 09/18/18 04:30 Est GFR (Non-Af Amer) 43 (> 60) L 09/18/18 04:30 27 (6-26) H 09/16/18 03:15 Glucose 154 mg/dL (70-105) H 09/18/18 04:30 POC Glucose 164 mg/dL (70-99) H 09/18/18 11:43 308 (280-300) H 09/17/18 03:15 Lactic Acid 2.3 mmol/L (0.5-2.2) H 09/16/18 08:25 Calcium 7.3 mg/dL (8.6-10.3) L 09/18/18 04:30 Phosphorus 4.9 mg/dL (2.7-4.5) H 09/17/18 03:15 Magnesium 3.2 mg/dL (1.6-2.6) H 09/16/18 03:15 8.2 mg/dL (0.3-1.0) H 09/18/18 04:30 5.7 mg/dL (0.0-0.2) H 09/18/18 04:30 2.5 mg/dL (0.0-1.2) H 09/18/18 04:30 AST 211 Units/L (13-39) H 09/18/18 04:30 ALT 107 Units/L (7-52) H 09/18/18 04:30 135 Units/L (34-104) H 09/18/18 04:30 56 mcmol/L (16-53) H 09/10/18 11:19 0.09 ng/mL (< 0.04) H* 09/10/18 23:52 4.6 g/dL (6.4-8.9) L 09/18/18 04:30 2.6 g/dL (3.5-5.7) L 09/18/18 04:30 2.0 g/dL (2.4-3.5) L 09/18/18 04:30 Stool Occult Bld Scrn Positive (Negative) A 09/10/18 11:33 Vancomycin Trough 13 mcg/mL (5-10) H 09/15/18 11:30 Hep Bs Antibody < 3.10 mIU/mL (10.00-) L 09/15/18 11:30 Crossmatch See Detail 09/14/18 23:50 - Microbiology Findings Microbiology Findings: Microbiology, Last 48 Hours 09/18/18 10:40 Blood Culture - Preliminary Central Venous Catheter Culture is incubating and being continuously monitored for growth. Final report to follow. 09/14/18 21:00 Sputum Culture - Final Aspirate Escherichia coli Annel albicans - Clinical Findings Intake & Output: Intake & Output 09/17/18 09/18/18 09/18/18 23:59 07:59 15:59 Intake Total 945.0 / 3536.3 931.4 / 2632.8 1701.4 / 2632.8 Output Total 547 / 1011 817 / 832 15 / 832 Balance 398.0 / 2525.3 114.4 / 1800.8 1686.4 / 1800.8 Weight 129 kg 129.5 kg 129.5 kg Consult Discharge Plan - Plan [facility]errals: [facility] [Primary Care Provider[facility] - - Attending Attestation I examined this patient and my medical decision-making was reviewed with the Resident Physician. I agree with the documented findings, disposition and treatment plan as described except to the extent set forth below. We valentina gorman had [id number] contact with the patient I spent 40min of Critical Care time with this patient. It involved decision making of high complexity to assess, manipulate, and support vital organ system failure and/or to prevent further life threatening deterioration of the patient's condition. The time involved in the performance of separately reportable procedures was not counted toward critical care time. Patient seen and examined at bedside Labs, radiology, chart personally reviewed. Management was reviewed during multidisciplinary critical care rounds. 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 avoid sensory deprivation, and avoid DIGITAL MUSIC INSTRUCTOR depressant medications as able. Continue lactulose Pulm: Hypoxic respiratory failure on vent with acceptable gas exchange not a candidate for spontaneous breathing trial because of critical illness and mu ltiorgan system failure worsening shock. Patient is being treated for pneumonia Cards: This is a shock secondary to sepsis which is worsening and he vasopressor support GI: Hepatic cirrhosis which is decompensated and history of esophageal varices with acute hemorrhage gastroenterology following. Continue octreotide and pr oton pump inhibitor infusion Nutrition: Enteral nutrition per dietary recommendations may have to stop this as worsening shock Renal: UOP Monitored, Cont to Trend sCr and monitor Electrolytes. ID: Worsening leukocytosis of unclear etiology CT of the abdomen plan today will likely broaden out antibiotics Heme/Onc: H&H is stable persistent thrombocytopenia which is stable no overt evidence of hemorrhage today Endo: Glucose Monitored Integ/MSK: Skin Care per routine ICU Nursing Protocol to prevent ulcers. Lines: All lines examined without evidence of infection : Dispo: Monitor in ICU for critical illness CODE:DNAR palliative care following prognosis poor may transition to comfort measures and they transition to comfort measures and the other part of next week if no improvement clinically per patient's outlined goals of care per POA <Miguel Lima - Last Filed: 09/18/18 14:46> Date of Encounter: 09/18/18 Time of Encounter: 08:05 Assessment and Plan (1) Upper gastrointestinal hemorrhage Current Visit: Yes Status: Acute -Presented with multiple episodes of melena and coffee-ground emesis -Hgb 6.3 on arrival -Received total 7 units PRBC -EGD 09/10/18: Large fresh clot seen in fundus along with old blood. No active bleeding -EGD 09/11/18: Again demonstrated large clot in fundus with suspicion bleeding source under fundal clot -EGD 09/13/18 with blood found in cardia injected with epi achieving hemostasis -BRTO 09/14/18 via IR for fundal varices -Octreotide stopped after 72 hours -PPI infusion transitioned to IV -When OG placed dark red blood return ~350ml initially that was likely old blood in stomach from fundal bleed -Hgb 10.1 today and stable without evidence of further bleeding (2) SPIKE (acute kidney injury) Current Visit: Yes Status: Acute -Likely 2/2 hypovolemia -Cr 1.56 on arrival -Renal function worsened to peak of Cr 4, BUN 108 on 09/16/18 -Vanc able to dc 09/16/18 -Temp dialysis catheter placed 09/14/18 -Cr 1.6, BUN 32, K 4.1 today -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 (3) Alcohol abuse Current Visit: No Status: Acute -Extensive alcohol hx -Continue precedex, banana bag (4) Cirrhosis Current Visit: No Status: Chronic -Hx of cirrhosis 2/2 alcohol abuse -CT abd/plv 09/10/18 with large gastric and retroperitoneal varices -MELD 25, DF 29 -Ammonia 56 -GI following -BRTO via IR for fundal varices 09/14/18 Qualifiers: Hepatic cirrhosis type: alcoholic cirrhosis Ascites presence: unspecified Qualified Code(s): K70.30 - Alcoholic cirrhosis of liver without ascites (5) DM (diabetes mellitus), type 2 Current Visit: No Status: Chronic -SSI and accucheks Qualifiers: Diabetes mellitus senior living insulin use: without rat exterminator use Diabetes mellitus complication status: without complication Qualified Code(s): E11.9 - Type 2 diabetes mellitus without complications (6) Leukocytosis Current Visit: Yes Status: Acute -Acute increase in WBC from 8-22.8 on 09/16/18 -Sputum culture 09/14/18 pos for E coli sensitive to levofloxacin -Dc vanc 09/16/18 -WBC 27.9 today, afebrile -Will get CT chest, abd/plv today as leukocytosis continues to rise without clear origin -Repeat BC x2, urine culture, sputum culture -Continue levofloxacin Qualifiers: Leukocytosis type: unspecified Qualified Code(s): D72.829 - Elevated white blood cell count, unspecified (7) DVT prophylaxis Current Visit: No Status: Acute -SCDs Subjective Principal diagnosis: UGI bleed Interval history: No acute events overnight. Remains intubated and sedated. [facility] continues. Objective PUL Vital signs: Last Vital Signs Temp 96.8 F L 09/18/18 12:00 Pulse 54 09/18/18 13:00 Resp 24 09/18/18 13:00 BP 93/53 09/18/18 13:00 Pulse Ox 99 09/18/18 13:00 General appearance: no acute distress, other (intubated and sedated ) Eyes: nonicteric ENT: oropharynx dry Effort: other (on vent ) Auscultation: bilateral: diminished breath sounds, rhonchi (scattered) Cardiovascular: regular rate and rhythm Gastrointestinal: normoactive bowel sounds, soft, non-tender, other (mildly distended ) Extremities: no cyanosis, no clubbing, edema other (intubated and sedated but able to answer simple yes no answers ) other (intubated and sedated ) Ventilator Settings Ventilator Settings: Ventilator Settings, Last 8 Hours Ventilator Tidal Volume 620 Setting Ventilator Tidal Volume 620 Setting Ventilator Tidal Volume 620 Setting Ventilator Tidal Volume 620 Setting Ventilator Tidal Volume 620 Setting Ventilator Tidal Volume 620 Setting Ventilator Tidal Volume 620 Setting Ventilator Tidal Volume 620 Setting Ventilator Tidal Volume 620 Setting Ventilator Respiratory Rate 24 Setting Ventilator Respiratory Rate 24 Setting Ventilator Respiratory Rate 24 Setting Ventilator Respiratory Rate 24 Setting Ventilator Respiratory Rate 24 Setting Ventilator Respiratory Rate 24 Setting Ventilator Respiratory Rate 24 Setting Ventilator Respiratory Rate 24 Setting Ventilator Respiratory Rate 24 Setting Actual Respiratory Rate 31 Actual Respiratory Rate 27 Actual Respiratory Rate 28 Actual Respiratory Rate 24 Actual Respiratory Rate 24 Actual Respiratory Rate 28 Positive End Expiratory 8 Pressure Positive End Expiratory 8 Pressure Positive End Expiratory 8 Pressure Positive End Expiratory 8 Pressure Positive End Expiratory 8 Pressure Positive End Expiratory 8 Pressure Positive End Expiratory 8 Pressure Positive End Expiratory 8 Pressure Positive End Expiratory 8 Pressure Peak Inspiratory Airway 36 Pressure Peak Inspiratory Airway 38 Pressure Peak Inspiratory Airway 39 Pressure Peak Inspiratory Airway 34 Pressure Peak Inspiratory Airway 28 Pressure Peak Inspiratory Airway 25 Pressure Peak Inspiratory Airway 34 Pressure Peak Inspiratory Airway 33 Pressure Peak Inspiratory Airway 23 Pressure Results - Laboratory Findings CBC and BMP: 09/18/18 04:30 09/18/18 04:30 ABG ABG pH 7.41 pH Units (7.32-7.45) 09/18/18 04:42 ABG pCO2 42 mmHg (35-45) 09/18/18 04:42 ABG pO2 85 mmHg (85-104) 09/18/18 04:42 ABG O2 Saturation 96 % (95-98) 09/18/18 04:42 PT/INR, D-dimer PT 14.8 Seconds (9.4-12.1) H 09/14/18 23:50 Abnormal lab findings: Abnormal lab results WBC 27.9 K/mcL (4.3-11.1) H 09/18/18 04:30 RBC 3.31 M/mcL (4.19-5.50) L 09/18/18 04:30 Hgb 10.1 g/dL (12.9-16.9) L 09/18/18 04:30 Hct 31.1 % (37.5-50.1) L 09/18/18 04:30 MCV 101.8 fL (83.0-100.0) H 09/13/18 03:36 MCH 34.2 pg (28.0-33.3) H 09/13/18 03:36 RDW 19.7 % (11.5-14.5) H 09/18/18 04:30 Plt Count 67 K/mcL (140-400) L 09/18/18 04:30 MPV 12.7 fL (9.4-12.4) H 09/18/18 04:30 6.0 % (0-4) H 09/18/18 04:30 2.0 % (0) H 09/17/18 03:15 4.0 % (0) H 09/12/18 06:33 25.1 K/mcL (1.6-8.9) H 09/18/18 04:30 0.5 K/mcL (0.6-4.6) L 09/17/18 03:15 2.0 K/mcL (0.0-1.3) H 09/12/18 06:33 Nucleated RBCs/100 WBC 2.1 /100 WBC (0) H 09/18/18 04:30 Decreased (Normal) L 09/18/18 04:30 Immature Plt Fraction 17.9 % (1.1-6.1) H 09/17/18 03:15 1+ (Not Present) A 09/18/18 04:30 Present (Not Present) A 09/18/18 04:30 1+ (Not Present) A 09/17/18 03:15 1+ (Not Present) A 09/18/18 04:30 Present (Not Present) A 09/15/18 03:25 Present (Not Present) A 09/18/18 04:30 PT 14.8 Seconds (9.4-12.1) H 09/14/18 23:50 APTT 24.1 Seconds (26.0-36.0) L 09/11/18 05:18 ABG pH 7.25 pH Units (7.32-7.45) L 09/16/18 13:48 ABG pCO2 46 mmHg (35-45) H 09/16/18 13:48 ABG pO2 84 mmHg (85-104) L 09/17/18 05:43 ABG HCO3 20 mEq/L (21-27) L 09/16/18 13:48 ABG Total CO2 28 mEq/L (20-26) H 09/18/18 04:42 ABG O2 Saturation 82 % (95-98) L 09/16/18 13:48 ABG Base Excess -7 mEq/L (-2 to 3) L 09/16/18 13:48 Sodium 146 mEq/L (136-145) H 09/16/18 03:15 Potassium 5.7 mEq/L (3.5-5.1) H D 09/11/18 06:07 Chloride 109 mEq/L (98-107) H 09/17/18 03:15 Carbon Dioxide 20 mEq/L (23-29) L 09/16/18 03:15 BUN 32 mg/dL (8-23) H 09/18/18 04:30 1.60 mg/dL (0.70-1.30) H 09/18/18 04:30 Est GFR ( Amer) 52 (> 60) L 09/18/18 04:30 Est GFR (Non-Af Amer) 43 (> 60) L 09/18/18 04:30 27 (6-26) H 09/16/18 03:15 Glucose 154 mg/dL (70-105) H 09/18/18 04:30 POC Glucose 164 mg/dL (70-99) H 09/18/18 11:43 308 (280-300) H 09/17/18 03:15 Lactic Acid 2.3 mmol/L (0.5-2.2) H 09/16/18 08:25 Calcium 7.3 mg/dL (8.6-10.3) L 09/18/18 04:30 Phosphorus 4.9 mg/dL (2.7-4.5) H 09/17/18 03:15 Magnesium 3.2 mg/dL (1.6-2.6) H 09/16/18 03:15 8.2 mg/dL (0.3-1.0) H 09/18/18 04:30 5.7 mg/dL (0.0-0.2) H 09/18/18 04:30 2.5 mg/dL (0.0-1.2) H 09/18/18 04:30 AST 211 Units/L (13-39) H 09/18/18 04:30 ALT 107 Units/L (7-52) H 09/18/18 04:30 135 Units/L (34-104) H 09/18/18 04:30 56 mcmol/L (16-53) H 09/10/18 11:19 0.09 ng/mL (< 0.04) H* 09/10/18 23:52 4.6 g/dL (6.4-8.9) L 09/18/18 04:30 2.6 g/dL (3.5-5.7) L 09/18/18 04:30 2.0 g/dL (2.4-3.5) L 09/18/18 04:30 Stool Occult Bld Scrn Positive (Negative) A 09/10/18 11:33 Vancomycin Trough 13 mcg/mL (5-10) H 09/15/18 11:30 Hep Bs Antibody < 3.10 mIU/mL (10.00-) L 09/15/18 11:30 Crossmatch See Detail 09/14/18 23:50 - Microbiology Findings Microbiology Findings: Microbiology, Last 48 Hours 09/18/18 10:40 Blood Culture - Preliminary Central Venous Catheter Culture is incubating and being continuously monitored for growth. Final report to follow. 09/14/18 21:00 Sputum Culture - Final Aspirate Escherichia coli Annel albicans - Clinical Findings Intake & Output: Intake & Output 09/17/18 09/18/18 09/18/18 23:59 07:59 15:59 Intake Total 945.0 / 3536.3 931.4 / 2518.0 1586.6 / 2518.0 Output Total 547 / 1011 817 / 832 15 / 832 Balance 398.0 / 2525.3 114.4 / 1686.0 1571.6 / 1686.0 Weight 129 kg 129.5 kg 129.5 kg
[2018-09-18] MEDS ORDERED: Vancomycin 1 EACH in 0.9 % Sodium Chloride 250 ML IVPB PRN (16:00)
--- NOTE | 2018-09-18 16:07 | General Surgery Progress Note ---
Date of Encounter: 09/18/18 Time of Encounter: 16:06 - Assessment and Plan (1) Pneumatosis intestinalis of large intestine Current Visit: Yes Status: Acute Issue with increasing WBC. On norepinephrine to maintain pressure. CT scan of the abdomen and pelvis was performed and reviewed by me which shows pneumatosis of the right colon. In addition to his elevated white count the patient has increasing liver function tests. Overall I think the patient's prognosis is poor. He was just changed to DNR CCA and my overall recommendation would be to transition the patient into comfort measures only given his overall poor prognosis. Subjective Patient reports: other (Patient intubated on pressors.) Objective Vital Signs - Last 8 Hours Temp Pulse Resp BP Pulse Ox 09/18/18 16:00 60 27 110/77 100 09/18/18 15:50 26 100 09/18/18 15:00 63 30 85/68 100 09/18/18 14:00 61 28 125/89 99 09/18/18 13:00 54 24 93/53 99 09/18/18 12:00 96.8 F L 64 25 114/37 100 09/18/18 11:40 31 100 09/18/18 11:00 67 27 111/47 100 09/18/18 10:00 67 31 104/72 100 09/18/18 09:55 30 100 09/18/18 09:00 65 31 113/67 100 Intake and Output 09/18/18 09/18/18 09/18/18 07:59 15:59 23:59 Intake Total 931.4 / 2852.8 1921.4 / 2852.8 Output Total 817 / 837 20 / 837 0 / 837 Balance 114.4 / 2015.8 1901.4 / 2015.8 0 / 2014.8 Intake: IV Fluids 622.4 / 1318.8 696.4 / 1318.8 PrismaSATE BGK 4/2.5 5,000 ML @ 0 / 0 0 / 0 1500 mls/hr CRRT [facility] Rx#: [id number] Amiodarone Drip Premix 360mg/ 131.9 / 187.6 55.7 / 187.6 200mL 360 mg In 200 ml @ 0.5 MG /MIN 16.667 mls/hr IVC [facility] Rx#:[id number] PRECEDEX Premix 400 mcg In 100 100.3 / 175.3 75.0 / 175.3 ml @ 0.2 MCG/KG/HR 5.736 mls/hr IVC .[id number] [facility] [place] Rx#: [id number] FentaNYL (PF) 1,000 MCG In 0.9 131.5 / 261.1 129.6 / 261.1 % Sodium Chloride 80 ML @ 50 MCG/HR 5 mls/hr IVC [facility] Rx #:[id number] Levophed 4 MG In Dextrose 5% 258.7 / 634.7 376.0 / 634.7 250 ML @ 8 MCG/MIN 30.48 mls/hr IVC [facility] Rx#:[id number] Vitamin B-1 100 MG In Dextrose 60.1 / 60.1 5% 50 ML @ 50 mls/hr IVPB DAILY [facility] [place] Rx#:[id number] Tube Feeding 309 / 474 165 / 474 Free Water 1060 / 1060 Output: [facility] 797 / 797 Catheter 20 / 40 20 / 40 0 / 40 Other: Stool Size Moderate Moderate Stool Consistency liquid liquid Stool Color Brown Brown Weight 129.5 kg 129.5 kg 129.5 kg Blood Glucose* 162 Fluid Removed by Prismaflex 92 162 163 Patient Weight 09/18/18 23:59 Weight 129.5 kg - General physical appearance no distress, jaundice (appears jaundiced) - Abdomen Abdomen: Present: soft, distended (questionable distension. No bowel sounds. Patient does not respond to palpation) - Labs 09/18/18 04:30 09/18/18 04:30 Diabetes panel 09/18/18 09/18/18 Range/Units 04:30 04:30 Sodium 139 (136-145) mEq/L Potassium 4.1 (3.5-5.1) mEq/L Chloride 105 (98-107) mEq/L Carbon Dioxide 25 (23-29) mEq/L BUN 32 H (8-23) mg/dL Creatinine 1.60 H (0.70-1.30) mg/dL Glucose 154 H (70-105) mg/dL Calcium 7.3 L (8.6-10.3) mg/dL AST 211 H (13-39) Units/L ALT 107 H (7-52) Units/L Alkaline Phosphatase 135 H (34-104) Units/L Albumin 2.6 L (3.5-5.7) g/dL Calcium panel 09/18/18 09/18/18 Range/Units 04:30 04:30 Calcium 7.3 L (8.6-10.3) mg/dL Phosphorus 2.8 (2.7-4.5) mg/dL Albumin 2.6 L (3.5-5.7) g/dL Pituitary panel 09/18/18 Range/Units 04:30 Sodium 139 (136-145) mEq/L Potassium 4.1 (3.5-5.1) mEq/L Chloride 105 (98-107) mEq/L Carbon Dioxide 25 (23-29) mEq/L BUN 32 H (8-23) mg/dL Creatinine 1.60 H (0.70-1.30) mg/dL Glucose 154 H (70-105) mg/dL Calcium 7.3 L (8.6-10.3) mg/dL Adrenal panel 09/18/18 09/18/18 Range/Units 04:30 04:30 Sodium 139 (136-145) mEq/L Potassium 4.1 (3.5-5.1) mEq/L Chloride 105 (98-107) mEq/L Carbon Dioxide 25 (23-29) mEq/L BUN 32 H (8-23) mg/dL Creatinine 1.60 H (0.70-1.30) mg/dL Glucose 154 H (70-105) mg/dL Calcium 7.3 L (8.6-10.3) mg/dL Total Bilirubin 8.2 H (0.3-1.0) mg/dL AST 211 H (13-39) Units/L ALT 107 H (7-52) Units/L Alkaline Phosphatase 135 H (34-104) Units/L Albumin 2.6 L (3.5-5.7) g/dL Consult Discharge Plan - Plan Referrals: [facility] [Primary Care Provider] -
[2018-09-18] MEDS: Meropenem 1,000 MG in 0.9 % Sodium Chloride Mini Bag 100 ML IVPB SCH (17:29)
[2018-09-18] MEDS: Levofloxacin 750 MG/150 ML 750 MG/150 ML BAG IVPB SCH (18:07)
[2018-09-19] MEDS: Dexmedetomidine HCl 400 MCG/100 ML MLS IVC SCH (00:09)
[2018-09-19] MEDS: Meropenem 1,000 MG in 0.9 % Sodium Chloride Mini Bag 100 ML IVPB SCH (00:10)
[2018-09-19] MEDS: Insulin LISPRO 300 UNITS/3 ML VIAL SQ SCH ×2 (00:57→06:33)
[2018-09-19] MEDS: Artificial Tears SOLN 15 ML BOTTLE BOTH EYES SCH ×2 (00:57→03:32)
[2018-09-19] MEDS: PrismaSATE BGK 4/2.5 5,000 ML CRRT SCH ×3 (02:12→02:15)
[2018-09-19] MEDS: Norepinephrine 4 MG in D5% in Water 250 ML IVC SCH ×2 (03:20→05:53)
[2018-09-19 03:42] LABS: Red Blood Count 3.66 M/mcL (4.19-5.50); Red Cell Distribution Width 19.9 % (11.5-14.5)
[2018-09-19 03:44] LABS: Hemoglobin 11.1 g/dL (12.9-16.9); Mean Corpuscular HGB Conc 30.8 g/dL (31.6-35.5); Mean Corpuscular Hemoglobin 30.3 pg (28.0-33.3); Mean Corpuscular Volume 98.4 fL (83.0-100.0); Mean Platelet Volume 12.5 fL (9.4-12.4)
[2018-09-19 03:45] LABS: Platelet Count 59 K/mcL (140-400)
[2018-09-19 03:59] LABS: Anisocytosis 1+ (Not Present); Lymphocytes # 0.6 K/mcL (0.6-4.6); Macrocytosis Present (Not Present); Monocytes # 1.8 K/mcL (0.0-1.3); Neutrophils # 26.9 K/mcL (1.6-8.9); Platelet Estimate Decreased (Normal); Polychromasia 2+ (Not Present)
[2018-09-19 04:01] LABS: Albumin 2.6 g/dL (3.5-5.7); Albumin/Globulin Ratio 1.3 (1.1-2.2); Bilirubin,Direct 5.9 mg/dL (0.0-0.2); Bilirubin,Indirect 2.9 mg/dL (0.0-1.2); Bilirubin,Total 8.8 mg/dL (0.3-1.0); Total Protein 4.6 g/dL (6.4-8.9)
[2018-09-19] MEDS ORDERED: Vasopressin 40 UNIT in D5% in Water 100 ML IV SCH (04:15)
[2018-09-19 04:28] LABS: Calcium 7.4 mg/dL (8.6-10.3); Magnesium 2.6 mg/dL (1.6-2.6); Phosphorous 4.3 mg/dL (2.7-4.5); Potassium 5.3 mEq/L (3.5-5.1)
[2018-09-19] MEDS: Ipratropium/Albuterol Neb 3 ML IH SCH ×2 (04:34→08:05)
[2018-09-19] MEDS: FentaNYL (PF) 1,000 MCG in 0.9 % Sodium Chloride 80 ML IVC SCH (05:16)
[2018-09-19] MEDS: Phenylephrine 10 MG in D5% in Water 250 ML IVC SCH ×2 (06:03→07:41)
--- NOTE | 2018-09-19 07:21 | Nephrology Progress Note ---
Date of Encounter: 09/19/18 Time of Encounter: 08:03 - Assessment and Plan (1) SPIKE (acute kidney injury) Status: Acute Remains hemodynamically too hypotensive for iHD. Yesterday, I had continued Mercy, as supportive care, but if the patient pursues palliative/compassionate withdrawal of care, will have to stop Mercy. In fact earlier today, the patient even became too hypotensive to remain on Mercy, so it has been discontinued. I spent time updating the patient's relatives, and discussed his care from a nephrology perspective with his power of air analysis technician. I answered all of their questions. (2) Obesity (BMI 30-39.9) Status: Chronic (3) Hypertension Status: Chronic Very hypotensive and holding all antihypertensive Rx Qualifiers: Hypertension type: essential hypertension Qualified Code(s): I10 - Essential (primary) hypertension (4) Anemia Status: Acute Multifactorial. Transfusion parameters as per primary. Qualifiers: Anemia type: unspecified type Qualified Code(s): D64.9 - Anemia, unspecified (5) Cirrhosis Status: Acute Contributing to his multiorgan dysfunction as well as hypotension and anemia and jaundice Qualifiers: Hepatic cirrhosis type: other cirrhosis Qualified Code(s): K74.69 - Other cirrhosis of liver (6) DM (diabetes mellitus), type 2 Status: Chronic Hx of DM Qualifiers: 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: without termite technician use Diabetes mellitus complication status: without complication Qualified Code(s): E11.9 - Type 2 diabetes mellitus without complications (7) Esophageal varices Status: Acute As per primary Qualifiers: Esophageal varices type: unspecified type Esophageal varices bleeding: with bleeding Qualified Code(s): I85.01 - Esophageal varices with bleeding (8) GI bleed Status: Acute As per primary Qualifiers: GI bleed type/associated pathology: unspecified gastrointestinal hemorrhage type Qualified Code(s): K92.2 - Gastrointestinal hemorrhage, unspecified Subjective Principal diagnosis: UGI bleed Interval history: The patient was seen and examined in the ICU earlier in the day. I updated his family who were all present at the bedside, and the ICU nurse reported that withdrawal of care may soon be initiated. The patient was intubated and sedated, thus limiting the subjective portion of this note Objective - Vital Signs Vital signs: Vital Signs Temp Pulse Resp BP Pulse Ox 05/18/19 06:00 66 26 66/51 86 09/19/18 05:00 68 27 53/35 88 09/19/18 04:35 27 91 09/19/18 04:00 96.4 F L 68 27 62/53 91 09/19/18 03:00 72 27 77/65 91 09/19/18 02:00 70 29 72/45 91 09/19/18 01:14 28 73/63 92 09/19/18 01:00 76 28 73/63 89 09/19/18 00:00 96.4 F L 78 28 93/58 90 09/18/18 23:47 27 75/57 96 09/18/18 23:00 76 28 89/50 96 09/18/18 22:00 80 30 107/65 98 09/18/18 21:00 85 28 125/88 95 09/18/18 20:45 35 77/64 95 09/18/18 20:00 75 31 88/65 97 09/18/18 19:42 97.1 F L 09/18/18 19:00 63 28 95/61 100 09/18/18 18:00 60 30 103/72 100 09/18/18 17:00 58 30 98/67 100 09/18/18 16:00 60 27 110/77 100 09/18/18 15:50 26 100 09/18/18 15:00 63 30 85/68 100 09/18/18 14:00 61 28 125/89 99 09/18/18 13:00 54 24 93/53 99 09/18/18 12:00 96.8 F L 64 25 114/37 100 09/18/18 11:40 31 100 09/18/18 11:00 67 27 111/47 100 09/18/18 10:00 67 31 104/72 100 09/18/18 09:55 30 100 09/18/18 09:00 65 31 113/67 100 09/18/18 08:00 97.1 F L 63 25 97/76 99 09/18/18 07:35 24 97 Intake and Output 09/18/18 09/18/18 09/19/18 15:59 23:59 07:59 Intake Total 1921.4 / 4153.1 1300.3 / 4153.1 1069 / 1069 Output Total 20 1563 655 / 1563 630 / 630 Balance 1901.4 / 2590.1 645.3 / 2590.1 439 / 439 Intake: IV Fluids 696.4 / 2619.1 1300.3 / 2619.1 1069 / 1069 PrismaSATE BGK 4/2.5 5,000 ML @ 0 / 0 0 / 0 0 / 0 1500 mls/hr CRRT CONT [facility] Rx#: [id number] Amiodarone Drip Premix 360mg/ 55.7 / 350.9 163.3 / 350.9 150 / 150 200mL 360 mg In 200 ml @ 0.5 MG /MIN 16.667 mls/hr IVC CONT [facility] Rx#:[id number] PRECEDEX Premix 400 mcg In 100 75.0 / 208.3 33 / 208.3 172 / 172 ml @ 0.2 MCG/KG/HR 5.736 mls/hr IVC .[id number] [facility] Rx#: [id number] FentaNYL (PF) 1,000 MCG In 0.9 129.6 / 361.1 100 / 361.1 110 / 110 % Sodium Chloride 80 ML @ 50 MCG/HR 5 mls/hr IVC CONT [facility] Rx #:[id number] Levophed 4 MG In Dextrose 5% 376.0 / 888.7 254 / 888.7 527 / 527 250 ML @ 8 MCG/MIN 30.48 mls/hr IVC CONT [facility] Rx#:[id number] Levaquin Premix 750mg/150 mL 150 / 150 750 mg In 150 ml @ 100 mls/hr IVPB DAILY@1600 [facility] Rx#: [id number] Merrem 1,000 MG In 0.9 % Sodium 100 / 100 110 / 110 Chloride (Mini-Bag +) 100 ML @ 200 mls/hr IVPB Q8HR [facility] Rx#: [id number] Vitamin B-1 100 MG In Dextrose 60.1 / 60.1 5% 50 ML @ 50 mls/hr IVPB DAILY [facility] Rx#:[id number] Vancocin 2,000 MG In 0.9 % 500 / 500 Sodium Chloride 500 ML @ 250 mls/hr IVPB ONCE ONE Rx#: [id number] Oral 0 / 0 0 / 0 Tube Feeding 165 / 474 Free Water 1060 / 1060 Output: Mercy 649 / 1517 530 / 530 Catheter 20 / 46 6 / 46 0 / 0 Gastric Drainage 0 / 0 100 / 100 Other: Stool Size Moderate Copious Small Stool Consistency liquid loose loose Stool Color Brown Black Black Weight 129.5 kg 129.5 kg 129.5 kg Fluid Removed by Prismaflex 162 88 134 Patient Weight 09/19/18 23:59 Weight 129.5 kg - General Appearance General appearance: Present: moderate distress, chronically ill, sedated on ventilator, intubated, fatigue, frail EENT: Present: mucous membranes moist Additional Comments: Jaundices scleral findings b/l Neck: Present: supple Respiratory: Present: course breath sounds Cardiology: Present: edema, normal S1, normal S2 Gastrointestinal: Present: normoactive bowel sounds, no guarding, distended Integumentary: Present: cool/clammy, erythema, ecchymotic Neurologic: Present: obtunded (as well as intubated/sedated) Musculoskeletal: Present: erythema - Lab 09/19/18 03:30 09/19/18 03:30 Most recent lab results 09/19/18 03:30 Calcium 7.4 L Phosphorus 4.3 Magnesium 2.6 Consult Discharge Plan - Plan [facility]errals: [facility] [Primary Care Provider] -
[2018-09-19 08:07] VITALS: BP 51/39
--- NOTE | 2018-09-19 08:36 | Death Note ---
<Miguel Lima - Last Filed: 09/19/18 11:35> Discharge Sum: Summary - Date and Time Date of admission: 09/10/18 15:58 Date of : 09/19/18 Time of : 08:25 - Summary Details: Admitted 09/10/18 with acute fundal varices bleed requiring emergent EGD without confident hemostasis acheived. He had 2 additional EGD's and total of 7 units PRBCs given during admission. BRTO procedure performed by IR on 09/14/18 for fundal varices. He remained intubated entire stay as never stable enough to attempt extubation. Over last 4 days he had a persistently increasing leukocytosis to high of 29.2 despite broad spectrum abx. Palliative evaluated case with POA and initially changed code status to DNR CCA with plans to reevaluate on Friday. On 09/18/18 he was found to have pneumotosis of R colon wall, portal venous gas, and gas within the omental and mesenteric vessels. Surgery evaluated him and indicated he would not be able to intervene given how unstable he was. Overnight his BP declined further requiring 3 pressors to maintain MAP. POA was informed of deteriorating status and extremely poor prognosis at which point decision was made to withdraw care and provide comfort measures. He was extubated at 0812 this morning and was pronounced at 0825 without heart sounds, palpable pulse or breath sounds by 2 RNs. POA and auto transmission mechanic at bedside at time of . - Additional Data Confirmation of as documented by pronouncing clinician: no pulse, no respirations, no heart sounds Family: at bedside Additional persons at bedside: eve Attending/PCP notified?: No Attending physician: Jack Rossi MD Was code activated?: No Autopsy requested?: No plans examiner notified?: Yes Organ bank notified?: No Hospice patient?: No Discharge Sum: Diag - PCOD Probable Cause of : Cardiorespiratory arrest Discharge Sum: Prov - Provider Primary care physician: PCP [place] Admitting clinician: Alexia Patel Attending physician on admission: Angeli Guaman Consults: 09/10/18 12:12 Consult to Gastroenterology [CONS] Stat Consulting Provider: Gastroenterology Laurie Reason for Consult: GIB with hx of varices Time Notified: 11:30 Call Completed: Yes 09/10/18 18:09 Consult to Fumigator And Sterilizer [CONS] Routine Reason for SW Consult: Alcohol withdrawal. Pt lives alone and was reportedly too weak to leave bed - was found sitting in 4-5 days of excrement. 09/13/18 08:09 Consult to Surgery [CONS] Stat Consulting Provider: Surgery Laurie Surgical Reason for Consult: GI bleed Time Notified: 08:11 Call Completed: Yes 09/14/18 09:39 Consult to Interventional Radiology [CONS] Routine Consulting Provider: Radiology Interventional Cols Reason for Consult: BRTO Time Notified: 09:40 Call Completed: Yes 09/14/18 11:12 Consult to Nephrology [CONS] Routine Consulting Provider: Kidney Lauire/RICHARD/REEMA/LILA Reason for Consult: Worsening renal function Time Notified: 11:12 Call Completed: Yes 09/14/18 11:26 Consult to Invasive Line Access Team [CONS] Routine Reason for Consult: poor access Line Type: EPIV 09/15/18 10:45 Consult to Dialysis [CONS] ONCE 09/15/18 14:21 Consult to Interventional Radiology [CONS] Routine Consulting Provider: Radiology Interventional Cols Reason for Consult: Line exchange for temp IJ Time Notified: 14:21 Call Completed: Yes 09/16/18 13:03 Consult to Palliative Care [CONS] Routine Comment: Consulting Provider: Palliative Care Laurie Reason for Consult: POI requested as said he would not want to be intubated. UGI bleed, has remained intubated and sedated since arrival. Time Notified: 13:05 Call Completed: Yes 09/16/18 13:50 Consult to Nutrition [CONS] Routine Comment: Consulting Provider: NUTRITION Reason for Dietary Consult: Tube Feed Start & Manage 09/18/18 15:26 Consult to Surgery [CONS] Routine Consulting Provider: Miguel Lima Reason for Consult: Pneumatosis R colon Time Notified: 15:28 Call Completed: Yes Pronouncing clinician: Wayne Kyle <Wayne Kyle - Last Filed: 09/19/18 12:48> Discharge Sum: Summary - Date and Time Date of admission: 09/10/18 15:58 - Additional Data Attending physician: Jack Rossi MD Discharge Sum: Prov - Provider Primary care physician: [facility] Consults: 09/10/18 12:12 Consult to Gastroenterology [CONS] Stat Consulting Provider: Gastroenterology Laurie Reason for Consult: GIB with hx of varices Time Notified: 11:30 Call Completed: Yes 09/10/18 18:09 Consult to Fumigator And Sterilizer [CONS] Routine Reason for SW Consult: Alcohol withdrawal. Pt lives alone and was reportedly too weak to leave bed - was found sitting in 4-5 days of excrement. 09/13/18 08:09 Consult to Surgery [CONS] Stat Consulting Provider: Surgery Laurie Surgical Reason for Consult: GI bleed Time Notified: 08:11 Call Completed: Yes 09/14/18 09:39 Consult to Interventional Radiology [CONS] Routine Consulting Provider: Radiology Interventional Cols Reason for Consult: BRTO Time Notified: 09:40 Call Completed: Yes 09/14/18 11:12 Consult to Nephrology [CONS] Routine Consulting Provider: Kidney Laurie/RICHARD/REEMA/LILA Reason for Consult: Worsening renal function Time Notified: 11:12 Call Completed: Yes 09/14/18 11:26 Consult to Invasive Line Access Team [CONS] Routine Reason for Consult: poor access Line Type: EPIV 09/15/18 10:45 Consult to Dialysis [CONS] ONCE 09/15/18 14:21 Consult to Interventional Radiology [CONS] Routine Consulting Provider: Radiology Interventional Cols Reason for Consult: Line exchange for temp IJ Time Notified: 14:21 Call Completed: Yes 09/16/18 13:03 Consult to Palliative Care [CONS] Routine Comment: Consulting Provider: Palliative Care Laurie Reason for Consult: POI requested as said he would not want to be intubated. UGI bleed, has remained intubated and sedated since arrival. Time Notified: 13:05 Call Completed: Yes 09/16/18 13:50 Consult to Nutrition [CONS] Routine Comment: Consulting Provider: NUTRITION Reason for Dietary Consult: Tube Feed Start & Manage 09/18/18 15:26 Consult to Surgery [CONS] Routine Consulting Provider: Miguel Lima Reason for Consult: Pneumatosis R colon Time Notified: 15:28 Call Completed: Yes - Attending Attestation I examined this patient and my medical decision-making was reviewed with the Resident Physician. I agree with the documented findings, disposition and treatment plan as described except to the extent set forth below. We independently had [id number] contact with the patient I spent 32 of Critical Care time with this patient. It involved decision making of high complexity to assess, manipulate, and support vital organ system failure and/or to prevent further life threatening deterioration of the patient's condition. The time involved in the performance of separately reportable procedures was not counted toward critical care time. Patient seen and examined at bedside Labs, radiology, chart personally reviewed. Management was reviewed during multidisciplinary critical care rounds. 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 INSTALLER: Encephalopathic which is toxic metabolic in nature Pulm: Acute hypoxic hypercapnic respiratory failure remains on vent and needs to be on vent for supportive care acceptable oxygenation today but is not a candidate for CPAP trial because of multiorgan system failure and septic shock Cards: Distribute shock secondary to sepsis with multiorgan system failure GI: Hepatic cirrhosis which is decompensated leading to gastrointestinal hemorrhage also has evidence of intra-abdominal sepsis and pneumatosis likely related to recent instrumentation evaluated by general surgery and patient is not a surgical candidate Nutrition: Nothing by mouth for now Renal: Acute kidney injury requiring continuous renal replacement therapy G following UOP Monitored, Cont to Trend sCr and monitor Electrolytes. ID: Septic shock persist despite broad-spectrum antibiotics this is likely from intra-abdominal source and would likely need surgical intervention for treatment at he is not a candidate Heme/Onc: Acute blood loss anemia is stable he has persistent thrombocytopenia and anemia Endo: Glucose Monitored Integ/MSK: Skin Care per routine ICU Nursing Protocol to prevent ulcers. Lines: All lines examined without evidence of infection : CODE: I had a extensive conversation with the healthcare power of state attorney in the bedside at the ICU and explained that the prognosis was grave and did not expect patient to make a meaningful recovery given the findings from the CT abdomen and pelvis. She expressed understanding and plan for transition to comfort measures The patient is unable or incompetent to participate in giving a history and/or making treatment decisions. The discussion was necessary for determining treatment decision. This discussion took place in the ICU. The total meeting time was 15min
--- NOTE | 2018-09-21 13:26 | AcuteCareSurgery Progress Note ---
Date of Encounter: 09/18/18 Time of Encounter: 16:06 - Assessment and Plan (1) Pneumatosis intestinalis of large intestine Status: Acute Issue with increasing WBC. On norepinephrine to maintain pressure. CT scan of the abdomen and pelvis was performed and reviewed by me which shows pneumatosis of the right colon. In addition to his elevated white count the patient has increasing liver function tests. Overall I think the patient's prognosis is poor. He was just changed to DNR CCA and my overall recommendation would be to transition the patient into comfort measures only given his overall poor prognosis. Subjective Patient reports: other (Patient intubated on pressors) Objective - Abdomen Abdomen: Present: soft, distended ((questionable distension. No bowel sounds. Patient does not respond to palpation)) - Labs 09/19/18 03:30 09/19/18 03:30 Consult Discharge Plan - Plan [facility]errals: [facility] [Primary Care Provider] -
== END 2018-09-19 08:25 | disposition expired | DRG 981 ==
LOC: EMEROOARM 10:58 → ICNU 15:45 → SUATTDRO 15:58 → ICNU 18:33
PROVIDERS: ADMIT Internal Medicine Pulmonary Disease; ATTEND Internal Medicine Pulmonary Disease
PROC: ENDOEBX (2018-09-13 08:00)